=== PATIENT | male | born 1990 | race Caucasian/White ===

== ENCOUNTER 2017-04-25 | Emergency (ER) | payer OTHER ==
--- NOTE | 2017-04-25 21:39 | ER ---
Nurse's Notes [facility] Name: Kris Taylor Age: 27 yrs Sex: Male : 1990 Arrival Date: 04/25/2017 Time: 20:09 Bed 17 Private MD: Diagnosis: Anxiety disorder, unspecified Presentation: 04/25 20:24 Presenting complaint: Patient states: I have a history of asthma and I have been having tl1 shortness of breath for about 4 days. Transition of care: patient was not received from another setting of care. Onset of symptoms was April 21, 2017. Care prior to arrival: None. 20:24 Method Of Arrival: Ambulatory tl1 20:24 Acuity: ELSA 4 tl1 Historical: - Allergies: 20:25 PENICILLINS; tl1 - Home Meds: 20:25 Symbicort inhalation 2 puffs 2 times per day [Active]; tl1 - PMHx: 20:25 Asthma; Anxiety; tl1 - PSHx: 20:25 None; tl1 - Immunization history:: Adult Immunizations up to date. - Social history:: Smoking status: Patient/guardian denies using tobacco, never smoked, Patient/guardian denies using alcohol, street drugs. Screenin:54 Abuse screen: Denies threats or abuse. Denies injuries from another. Nutritional bp screening: No deficits noted. Tuberculosis screening: No symptoms or risk factors identified. Fall Risk None identified. Assessment: 21:00 General: Appears in no apparent distress. comfortable, Behavior is cooperative, bp appropriate for age, anxious. Pain: Denies pain. Neuro: No deficits noted. Cardiovascular: No deficits noted. Respiratory: Airway is patent Respiratory effort is even, unlabored, Respiratory pattern is regular, symmetrical, Breath sounds are clear bilaterally. GI: No deficits noted. : No deficits noted. EENT: No deficits noted. Musculoskeletal: Circulation, motion, and sensation intact. Range of motion: intact in all extremities. 21:53 Reassessment: PT D/C HOME, DX WITH ANXIETY. bp Vital Signs: 20:25 BP 119 / 103; Pulse 92; Resp 22; Temp 98.7; Pulse Ox 100% on R/A; Weight 58.97 kg; tl1 Height 5 ft. 10 in. (177.80 cm); Pain 7/10; 21:30 BP 121 / 89; Pulse 89; Resp 20; Pulse Ox 100% on R/A; bp 20:25 Body Mass Index 18.65 (58.97 kg, 177.80 cm) tl1 ED Course: 20:09 Patient arrived in ED. es 20:25 Triage completed. tl1 20:26 Arm band placed on right wrist. tl1 20:31 Willis Weaver PA is PHCP. jr8 20:31 Geovany Vasquez MD is Attending Physician. jr8 20:34 Coleman Mehta, RN is Primary Nurse. bp 21:00 Patient has correct armband on for positive identification. Bed in low position. Call bp light in reach. Side rails up X2. Adult w/ patient. 21:00 No provider procedures requiring assistance completed. Patient did not have IV access bp during this emergency room visit. Administered Medications: No medications were administered Outcome: 21:38 Discharge ordered by . jr8 21:55 Discharged to home ambulatory, with family. bp 21:55 Condition: stable 21:55 Discharge instructions given to patient, Instructed on discharge instructions, follow up and referral plans. medication usage, Demonstrated understanding of instructions, follow-up care, medications, Prescriptions given X 1. 21:55 Patient left the ED. bp Signatures: Miranda Leonard Willis Weaver PA PA jr8 Felicia Mariscal, RN RN tl1 Coleman Mehta, RN RN bp
--- NOTE | 2017-04-25 21:39 | EDPHYS ---
Physician Documentation [facility] Name: Kris Taylor Age: 27 yrs Sex: Male : 1990 Arrival Date: 04/25/2017 Time: 20:09 Bed 17 Private MD: ED Physician Geovany Vasquez HPI: 04/26 01:26 This 27 yrs old Male presents to ER via Ambulatory with complaints of jr8 shortness of breath. 01:26 The patient has shortness of breath at rest. Onset: The symptoms/episode began/occurred jr8 gradually, 2 day(s) ago. Duration: The symptoms are intermittent. The patient's shortness of breath is aggravated by rest, is alleviated by exertion . Associated signs and symptoms: The patient has no apparent associated signs or symptoms. Severity of symptoms: At their worst the symptoms were mild in the emergency department the symptoms are unchanged. The patient has experienced similar episodes in the past, chronically. The patient has not recently seen a physician. Patient stated that he has both asthma and anxiety. Stated that he has periods of shortness of breath feeling with gagging. Stated that he uses rescue inhaler but normally does not help. Has seen other physicians in past and was told that it was more his anxiety. Started to have problem again over past couple days . Historical: - Allergies: 04/25 20:25 PENICILLINS; tl1 - Home Meds: 20:25 Symbicort inhalation 2 puffs 2 times per day [Active]; tl1 - PMHx: 20:25 Asthma; Anxiety; tl1 - PSHx: 20:25 None; tl1 - Immunization history:: Adult Immunizations up to date. - Social history:: Smoking status: Patient/guardian denies using tobacco, never smoked, Patient/guardian denies using alcohol, street drugs. ROS: 04/26 01:26 Eyes: Negative for injury, pain, redness, and discharge, ENT: Negative for injury, jr8 pain, and discharge, Neck: Negative for injury, pain, and swelling, Cardiovascular: Negative for chest pain, palpitations, and edema, Abdomen/GI: Negative for abdominal pain, nausea, vomiting, diarrhea, and constipation, Back: Negative for injury and pain, MS/Extremity: Negative for injury and deformity, Skin: Negative for injury, rash, and discoloration, Neuro: Negative for headache, weakness, numbness, tingling, and seizure. Respiratory: Positive for shortness of breath, Negative for cough, dyspnea on exertion, orthopnea, pleurisy, sputum production, wheezing. Psych: Positive for anxiety. Exam: 01:26 Constitutional: This is a well developed, well nourished patient who is awake, alert, jr8 and in no acute distress. Head/Face: Normocephalic, atraumatic. Eyes: Pupils equal round and reactive to light, extra-ocular motions intact. Lids and lashes normal. Conjunctiva and sclera are non-icteric and not injected. Cornea within normal limits. Periorbital areas with no swelling, redness, or edema. ENT: Nares patent. No nasal discharge, no septal abnormalities noted. Tympanic membranes are normal and external auditory canals are clear. Oropharynx with no redness, swelling, or masses, exudates, or evidence of obstruction, uvula midline. Mucous membranes moist. Neck: Trachea midline, no thyromegaly or masses palpated, and no cervical lymphadenopathy. Supple, full range of motion without nuchal rigidity, or vertebral point tenderness. No Meningismus. Cardiovascular: Regular rate and rhythm with a normal S1 and S2. No gallops, murmurs, or rubs. Normal PMI, no JVD. No pulse deficits. Respiratory: Lungs have equal breath sounds bilaterally, clear to auscultation and percussion. No rales, rhonchi or wheezes noted. No increased work of breathing, no retractions or nasal flaring. Abdomen/GI: Soft, non-tender, with normal bowel sounds. No distension or tympany. No guarding or rebound. No evidence of tenderness throughout. Back: No spinal tenderness. No costovertebral tenderness. Full range of motion. Skin: Warm, dry with normal turgor. Normal color with no rashes, no lesions, and no evidence of cellulitis. MS/ Extremity: Pulses equal, no cyanosis. Neurovascular intact. Full, normal range of motion. Neuro: Awake and alert, GCS 15, oriented to person, place, time, and situation. Cranial nerves II-XII grossly intact. Motor strength 5/5 in all extremities. Sensory grossly intact. Cerebellar exam normal. Normal gait. Vital Signs: 04/25 20:25 BP 119 / 103; Pulse 92; Resp 22; Temp 98.7; Pulse Ox 100% on R/A; Weight 58.97 kg; tl1 Height 5 ft. 10 in. (177.80 cm); Pain 7/10; 21:30 BP 121 / 89; Pulse 89; Resp 20; Pulse Ox 100% on R/A; bp 20:25 Body Mass Index 18.65 (58.97 kg, 177.80 cm) tl1 MDM: 20:32 Patient medically screened. jr8 21:38 Data reviewed: vital signs, nurses notes, and as a result, I will discharge patient. jr8 Data interpreted: Pulse oximetry: on room air is 100 %. Interpretation: normal. Counseling: I had a detailed discussion with the patient and/or guardian regarding: the historical points, exam findings, and any diagnostic results supporting the discharge/admit diagnosis, the need for outpatient follow up, a family practitioner, to return to the emergency department if symptoms worsen or persist or if there are any questions or concerns that arise at home. 04/26 01:26 ED course: Discussed with patient that he has not wheezing or any other adventitious jr8 breath sounds currently. That what he is describing sounds more like anxiety. Will start him on something to see if that improves the feelings that he has been having. If were to come back to ED. Otherwise to follow up with PCP . Administered Medications: No medications were administered Disposition: 07:06 Co-signature as Attending Physician, Geovany Vasquez MD I agree with the assessment and good plan of care. Disposition: 04/25/17 21:38 Discharged to Home. Impression: Anxiety disorder, unspecified. - Condition is Stable. - Discharge Instructions: Panic Attacks, Generalized Anxiety Disorder. - Prescriptions for Hydroxyzine HCl 50 mg Oral Tablet - take 1 tablet by ORAL route every 8 hours As needed; 20 tablet. - Medication Reconciliation Form, Thank You Letter, Antibiotic Education, Prescription Opioid Use form. - Follow up: Private Physician; When: 2 - 3 days; Reason: Recheck today's complaints, Continuance of care, Re-evaluation by your physician. - Problem is new. - Symptoms have improved. Signatures: Geovany Vasquez MD MD cha Roszak, Josh, PA PA jr8 Felicia Mariscal RN RN tl1 Coleman Mehta RN RN bp
== END 2017-04-25 21:55 | disposition home or self-care (01) ==
CPT/HCPCS: 99282

== ENCOUNTER 2017-08-14 10:37 | Emergency (ER) | payer OTHER ==
--- NOTE | 2017-08-14 12:38 | RAD REPORT ---
EXAM DESCRIPTION: Tomas Aldridge And Jared (2 Views)08/14/2017 12:08 pm CLINICAL HISTORY: Chest pain COMPARISON: October 2016 FINDINGS: The lungs are hyperaerated. The lungs appear clear of acute infiltrate. The heart is norm al size IMPRESSION: No acute abnormalities displayed
--- NOTE | 2017-08-14 13:17 | ER ---
Nurse's Notes [facility] Name: Kris Taylor Age: 27 yrs Sex: Male : 1990 Arrival Date: 08/14/2017 Time: 10:39 Bed 28 Private MD: Duc Branham E Diagnosis: Chest pain, unspecified Presentation: 08/14 10:41 Presenting complaint: Patient states: left sided chest pain, worse with breathing. c/o sv dry cough and sweating more. Symptoms started about 2-3 days ago. Transition of care: patient was not received from another setting of care. Onset of symptoms was August 11, 2017. Care prior to arrival: None. 10:41 Method Of Arrival: Ambulatory sv 10:41 Acuity: ELSA 3 sv 13:29 Risk Assessment: Do you want to hurt yourself or someone else? Patient reports no mb3 desire to harm self or others. Initial Sepsis Screen: Does the patient meet any 2 criteria? No. Patient's initial sepsis screen is negative. Does the patient have a suspected source of infection? No. Patient's initial sepsis screen is negative. Historical: - Allergies: 10:50 PENICILLINS; sv - Home Meds: 10:50 Albuterol Inhl [Active]; sv - PMHx: 10:50 Anxiety; Asthma; sv - PSHx: 10:50 None; sv - Immunization history:: Adult Immunizations up to date. - Social history:: Smoking status: Patient/guardian denies using tobacco, Patient/guardian denies using alcohol, street drugs, IV drugs. - Ebola Screening: : No symptoms or risks identified at this time. Screenin:28 Abuse screen: Denies threats or abuse. Nutritional screening: No deficits noted. mb3 Tuberculosis screening: No symptoms or risk factors identified. Fall Risk None identified. Assessment: 13:25 General: Appears in no apparent distress. comfortable, Behavior is calm, cooperative, mb3 appropriate for age. Pain: Complains of pain in anterior aspect of left upper chest, left lateral anterior chest and left breast Pain does not radiate. Pain began 2-3 days ago. Aggravated by increased activity, repositioning. Neuro: No deficits noted. Level of Consciousness is awake, alert, obeys commands. Cardiovascular: Reports chest pain, Heart tones present Capillary refill < 3 seconds Patient's skin is warm and dry. Pulses are all present. Rhythm is regular. Respiratory: No deficits noted. GI: No deficits noted. No signs and/or symptoms were reported involving the gastrointestinal system. : No deficits noted. No signs and/or symptoms were reported regarding the genitourinary system. Vital Signs: 10:41 BP 116 / 78; Pulse 82; Resp 18; Temp 97.4; Pulse Ox 100% ; Weight 58.97 kg; Height 5 sv ft. 10 in. (177.80 cm); Pain 6/10; 13:27 BP 120 / 85; Pulse 88; Resp 16; Pulse Ox 99% on R/A; mb3 10:41 Body Mass Index 18.65 (58.97 kg, 177.80 cm) sv ED Course: 10:39 Patient arrived in ED. as 10:40 Duc Branham MD is Private Physician. as 10:41 Arm band placed on right wrist. Patient placed in an exam room, on a stretcher. sv 10:47 Bryon Granados RN is Primary Nurse. mb3 10:49 Triage completed. sv 10:56 Gibran Byrne MD is Attending Physician. gs 11:01 EKG done, by electroencephalograph technician. reviewed by Gibran Byrne MD. 3 12:07 XRAY Chest Pa And Lat (2 Views) In Process Unspecified. EDMS 13:28 No provider procedures requiring assistance completed. Patient did not have IV access mb3 during this emergency room visit. Patient maintains SpO2 saturation greater than 95% on room air. 13:29 Patient has correct armband on for positive identification. Pulse ox on. NIBP on. mb3 Administered Medications: No medications were administered Outcome: 13:16 Discharge ordered by . 13:28 Discharged to home ambulatory. mb3 13:28 Condition: stable 13:28 Discharge instructions given to patient, Instructed on discharge instructions, follow up and referral plans. Demonstrated understanding of instructions, follow-up care. 13:29 Patient left the ED. mb3 Signatures: Dispatcher [employer] EDMS Tara Mcleod, JAVIER RN Dorinda Shields Gregory, MD MD Bryon Granados RN RN mb3 Penny Moore 3
--- NOTE | 2017-08-14 13:17 | EDPHYS ---
Physician Documentation [facility] Name: Kris Taylor Age: 27 yrs Sex: Male : 1990 Arrival Date: 08/14/2017 Time: 10:39 Bed 28 Private MD: Duc Branham E ED Physician Gibran Byrne HPI: 08/14 13:09 This 27 yrs old Male presents to ER via Ambulatory with complaints of Chest gs Pain - x3 Days. 13:09 The patient or guardian reports chest pain that is located primarily in the anterior gs chest wall. The pain does not radiate. Associated signs and symptoms: Pertinent negatives: shortness of breath. The chest pain is described as sharp. Duration: The patient or guardian reports multiple episodes, that are intermittent, that wax and wane, with no pattern. Modifying factors: The symptoms are alleviated by nothing. the symptoms are aggravated by deep breath, movement, palpation of area, twisting torso. Severity of pain: At its worst the pain was moderate in the emergency department the pain has improved moderately. The patient has experienced similar episodes in the past, a few times. Historical: - Allergies: 10:50 PENICILLINS; sv - Home Meds: 10:50 Albuterol Inhl [Active]; sv - PMHx: 10:50 Anxiety; Asthma; sv - PSHx: 10:50 None; sv - Immunization history:: Adult Immunizations up to date. - Social history:: Smoking status: Patient/guardian denies using tobacco, Patient/guardian denies using alcohol, street drugs, IV drugs. - Ebola Screening: : No symptoms or risks identified at this time. ROS: 13:09 All other systems are negative. gs Exam: 13:09 Head/Face: Normocephalic, atraumatic. Eyes: Pupils equal round and reactive to light, gs extra-ocular motions intact. Lids and lashes normal. Conjunctiva and sclera are non-icteric and not injected. Cornea within normal limits. Periorbital areas with no swelling, redness, or edema. ENT: Nares patent. No nasal discharge, no septal abnormalities noted. Tympanic membranes are normal and external auditory canals are clear. Oropharynx with no redness, swelling, or masses, exudates, or evidence of obstruction, uvula midline. Mucous membranes moist. Neck: Trachea midline, no thyromegaly or masses palpated, and no cervical lymphadenopathy. Supple, full range of motion without nuchal rigidity, or vertebral point tenderness. No Meningismus. Chest/axilla: Normal chest wall appearance and motion. Nontender with no deformity. No lesions are appreciated. Cardiovascular: Regular rate and rhythm with a normal S1 and S2. No gallops, murmurs, or rubs. Normal PMI, no JVD. No pulse deficits. Respiratory: Lungs have equal breath sounds bilaterally, clear to auscultation and percussion. No rales, rhonchi or wheezes noted. No increased work of breathing, no retractions or nasal flaring. Abdomen/GI: Soft, non-tender, with normal bowel sounds. No distension or tympany. No guarding or rebound. No evidence of tenderness throughout. Back: No spinal tenderness. No costovertebral tenderness. Full range of motion. Skin: Warm, dry with normal turgor. Normal color with no rashes, no lesions, and no evidence of cellulitis. MS/ Extremity: Pulses equal, no cyanosis. Neurovascular intact. Full, normal range of motion. Neuro: Awake and alert, GCS 15, oriented to person, place, time, and situation. Cranial nerves II-XII grossly intact. Motor strength 5/5 in all extremities. Sensory grossly intact. Cerebellar exam normal. Normal gait. 13:09 Constitutional: The patient appears alert, awake. 13:09 ECG was reviewed by the Attending Physician. Vital Signs: 10:41 BP 116 / 78; Pulse 82; Resp 18; Temp 97.4; Pulse Ox 100% ; Weight 58.97 kg; Height 5 sv ft. 10 in. (177.80 cm); Pain 6/10; 13:27 BP 120 / 85; Pulse 88; Resp 16; Pulse Ox 99% on R/A; mb3 10:41 Body Mass Index 18.65 (58.97 kg, 177.80 cm) sv MDM: 10:56 Patient medically screened. 13:09 Differential diagnosis: chest wall pain, pleurisy, pneumonia, pneumothorax. Data reviewed: vital signs, nurses notes. 08/14 10:57 Order name: XRAY Chest Pa And Lat (2 Views); Complete Time: 13:09 gs 08/14 10:48 Order name: EKG; Complete Time: 10:49 sv 08/14 10:48 Order name: EKG - Nurse/Tech; Complete Time: 10:56 sv EC:09 Rate is 77 beats/min. Rhythm is regular. RI interval is normal. QRS interval is normal. gs T waves are Normal. No ST changes noted. Clinical impression: Normal ECG. Interpreted by me. Administered Medications: No medications were administered Disposition: 08/14/17 13:16 Discharged to Home. Impression: Chest pain, unspecified. - Condition is Stable. - Discharge Instructions: Nonspecific Chest Pain. - Medication Reconciliation Form, Thank You Letter, Antibiotic Education, Prescription Opioid Use form. - Follow up: Private Physician; When: 2 - 3 days; Reason: Re-evaluation by your physician. Signatures: Dispatcher [employer] EDTara Melo RN RN sv Gibran Byrne MD MD Bryon Granados RN RN mb3 Corrections: (The following items were deleted from the chart) 10:48 10:48 Rhythm Strip ordered. sv sv 13:13 13:09 Modifying factors: The symptoms are alleviated by nothing. the symptoms are gs aggravated by nothing. gs 13:29 13:16 08/14/2017 13:16 Discharged to Home. Impression: Chest pain, unspecified. mb3 Condition is Stable. Forms are Medication Reconciliation Form, Thank You Letter, Antibiotic Education, Prescription Opioid Use. Follow up: Private Physician; When: 2 - 3 days; Reason: Re-evaluation by your physician. gs
--- NOTE | 2017-08-14 16:22 | EKG ---
Test Date: 2017-08-14 Test Time: 10:55:15 Bias Machine Operator Helper: MARCOS MEASUREMENT RESULTS: Intervals: Rate: 77 WY: 126 QRSD: 84 QT: 364 QTc: 411 [place]: P: 71 WY: 126 QRS: 92 T: 74 INTERPRETIVE STATEMENTS: Normal sinus rhythm Cannot rule out septal infarct or normal variant Abnormal ECG Compared to ECG 09/09/2016 01:38:12 No significant changes Electronically Signed On 08-14-17 16:22:12 CDT by Mega Hogue
== END 2017-08-14 13:29 | disposition home or self-care (01) ==
LOC: ER 10:37
DX: R07.9 Chest pain, unspecified (principal); J45.909 Unspecified asthma, uncomplicated; Z88.0 Allergy status to penicillin
CPT/HCPCS: 71046; 93005; 99284

== ENCOUNTER 2018-04-10 08:29 | Emergency (ER) | payer OTHER ==
[2018-04-10] MEDS ORDERED: NA CHLORIDE 0.9% 1,000 ML ONE (09:02)
[2018-04-10] MEDS ORDERED: ONDANSETRON 4 MG/2 ML VIAL ONE (09:02)
[2018-04-10 09:26] LABS: Absolute Lymphocytes (CBC) 0.6 K/uL (0.7-4.9); Absolute Monocytes 0.4 K/uL (0.1-1.3); Absolute Neutrophil 7.6 K/uL (1.8-8.0); Basophils % 0.2 % (0-1.3); Eosinophils % 0.3 % (0-4.4); Hematocrit 42.6 % (39.6-49.0); Lymphocytes % 7.1 % (15.3-44.8); MPV 8.4 fL (7.6-11.3); Monocytes % 4.1 % (3.3-12.3); RBC Red Blood Cell Count 4.98 M/uL (4.33-5.43)
[2018-04-10 09:39] LABS: Albumin 4.4 g/dL (3.4-5.0); Bilirubin Direct 0.2 mg/dL (0-0.2); Bilirubin Total 0.8 mg/dL (0.2-1.0); Potassium 3.6 mmol/L (3.5-5.1); Protein, Total 7.8 g/dL (6.4-8.2)
[2018-04-10 10:00] LABS: Blood Morphology Comment NOT SEEN (NOT SEEN); Platelet Estimate ADEQ; Urine White Blood Cell Casts OK
--- NOTE | 2018-04-10 10:39 | ER ---
Nurse's Notes [facility] Name: Kris Taylor Age: 28 yrs Sex: Male : 1990 Arrival Date: 04/10/2018 Time: 08:32 Bed 14 Private MD: Diagnosis: Upper abdominal pain, unspecified;Nausea and vomiting Presentation: 04/10 08:36 Presenting complaint: Patient states: congestion started yesterday, felling feverish, ch today having vomting and diarrhea and abdominal pain. Transition of care: patient was not received from another setting of care. Onset of symptoms was April 09, 2018 at 12:00. Risk Assessment: Do you want to hurt yourself or someone else? Patient reports no desire to harm self or others. Initial Sepsis Screen: Does the patient meet any 2 criteria? No. Patient's initial sepsis screen is negative. Does the patient have a suspected source of infection? No. Patient's initial sepsis screen is negative. Care prior to arrival: None. 08:36 Method Of Arrival: Ambulatory 08:36 Acuity: ELSA 3 ch Historical: - Allergies: 08:37 PENICILLINS; - Home Meds: 08:37 None [Active]; - PMHx: 08:37 Anxiety; Asthma; - PSHx: 08:37 None; - Immunization history:: Adult Immunizations up to date, Flu vaccine is not up to date. - Social history:: Smoking status: Patient/guardian denies using tobacco. - Ebola Screening: : Patient negative for fever greater than or equal to 101.5 degrees Fahrenheit, and additional compatible Ebola Virus Disease symptoms Patient denies exposure to infectious person Patient denies travel to an Ebola-affected area in the 21 days before illness onset No symptoms or risks identified at this time. Screenin:45 Abuse screen: Denies threats or abuse. Nutritional screening: No deficits noted. rb1 Tuberculosis screening: No symptoms or risk factors identified. Fall Risk None identified. Assessment: 08:45 General: Appears in no apparent distress. comfortable, Behavior is calm, cooperative, rb1 Reports fever for feeling ill for 1-2 days. Pain: Complains of pain in umbilical area and right lower quadrant Pain currently is 8 out of 10 on a pain scale. Pain began 1 day ago. Neuro: Level of Consciousness is awake, alert, obeys commands, Oriented to person, place, time, situation. Neuro: Reports headache frontal area. Cardiovascular: Capillary refill < 3 seconds is brisk in bilateral fingers. Respiratory: Airway is patent Respiratory effort is even, unlabored, Respiratory pattern is regular, symmetrical. GI: Bowel sounds present X 4 quads. Abd is soft Abdomen is tender to palpation in umbilical area and right lower quadrant Reports diarrhea, nausea, vomiting, since this morning. : No signs and/or symptoms were reported regarding the genitourinary system. EENT: Reports nasal congestion since yesterday. Derm: Skin is pink, warm \T\ dry. Musculoskeletal: Range of motion: intact in all extremities. 09:45 Reassessment: Patient appears in no apparent distress at this time. Patient and/or rb1 family updated on plan of care and expected duration. Pain level reassessed. Patient is alert, oriented x 3, equal unlabored respirations, skin warm/dry/pink. 10:00 Reassessment: Pt. tolerated PO challenge well; no vomiting noted at this time. rb1 10:33 Reassessment: Patient appears in no apparent distress at this time. No changes from [facility] previously documented assessment. Vital Signs: 08:37 BP 91 / 68; Pulse 120; Resp 19; Temp 99.9(O); Pulse Ox 99% on R/A; Weight 58.97 kg; ch Height 5 ft. 11 in. (180.34 cm); Pain 8/10; 09:35 BP 107 / 33; Pulse 101; Resp 17; Pulse Ox 100% on R/A; rb1 10:33 BP 117 / 71; Pulse 92; Resp 16; Pulse Ox 100% on R/A; rb1 10:52 BP 112 / 72; Pulse 106; Resp 16; Pulse Ox 100% on R/A; rb1 08:37 Body Mass Index 18.13 (58.97 kg, 180.34 cm) ED Course: 08:32 Patient arrived in ED. as 08:33 Courtney Rivera FNP-C [facility]. kb 08:33 Jonny Pierre MD is Attending Physician. kb 08:36 Triage completed. 08:37 Arm band placed on left wrist. Patient placed in an exam room, on a stretcher. 08:45 Patient has correct armband on for positive identification. Placed in gown. Bed in low rb1 position. Call light in reach. Side rails up X 1. Pulse ox on. NIBP on. 08:47 Olya Briscoe, RN is Primary Nurse. rb1 08:55 Inserted saline lock: 22 gauge in right antecubital area, using aseptic technique. rb1 Blood collected. 09:07 Flu Sent. rb1 10:52 No provider procedures requiring assistance completed. IV discontinued, intact, rb1 bleeding controlled, No redness/swelling at site. Pressure dressing applied. Administered Medications: 08:55 Drug: NS 0.9% 1000 ml Route: IV; Rate: 1000 ml; Site: right antecubital; rb1 10:07 Follow up: IV Status: Completed infusion rb1 08:55 Drug: Zofran 4 mg Route: IVP; Site: right antecubital; rb1 09:10 Follow up: Response: No adverse reaction; Nausea is decreased rb1 10:32 Drug: Tylenol 1000 mg Route: PO; rb1 10:51 Follow up: Response: No adverse reaction; Pain is decreased rb1 Outcome: 10:38 Discharge ordered by . kentrell 10:52 Discharged to home ambulatory. rb1 10:52 Condition: stable 10:52 Discharge instructions given to patient, Instructed on discharge instructions, follow up and referral plans. medication usage, Demonstrated understanding of instructions, follow-up care, medications, Prescriptions given X 2. 10:53 Patient left the ED. rb1 Signatures: Courtney Rivera, JOHN-Sofia LOPEZ-Tabitha Mcelroy, RN RN Dorinda Jean as Olya Briscoe, RN RN rb1
--- NOTE | 2018-04-10 10:39 | EDPHYS ---
Physician Documentation [facility] Name: Kris Taylor Age: 28 yrs Sex: Male : 1990 Arrival Date: 04/10/2018 Time: 08:32 Bed 14 Private MD: ED Physician Jonny Pierre HPI: 04/10 09:53 This 28 yrs old Male presents to ER via Ambulatory with complaints of kb Abdominal Pain, Vomiting, Headache. 09:53 The patient presents with abdominal pain in the upper abdomen. Onset: The kb symptoms/episode began/occurred last night. The symptoms do not radiate. Associated signs and symptoms: Pertinent positives: nausea and vomiting, fever, congestion. The symptoms are described as constant. Modifying factors: The symptoms are alleviated by nothing, the symptoms are aggravated by nothing. Severity of pain: At its worst the pain was moderate in the emergency department the pain is unchanged. The patient has not experienced similar symptoms in the past. The patient has not recently seen a physician. Pt reports upper abd pain, subjective fever (forehead felt warm), nasal congestion, nausea and vomiting since last night.. Historical: - Allergies: 08:37 PENICILLINS; ch - Home Meds: 08:37 None [Active]; ch - PMHx: 08:37 Anxiety; Asthma; ch - PSHx: 08:37 None; ch - Immunization history:: Adult Immunizations up to date, Flu vaccine is not up to date. - Social history:: Smoking status: Patient/guardian denies using tobacco. - Ebola Screening: : Patient negative for fever greater than or equal to 101.5 degrees Fahrenheit, and additional compatible Ebola Virus Disease symptoms Patient denies exposure to infectious person Patient denies travel to an Ebola-affected area in the 21 days before illness onset No symptoms or risks identified at this time. ROS: 09:52 Constitutional: Negative for fever, chills, and weight loss, ENT: Negative for injury, kb pain, and discharge, Neck: Negative for injury, pain, and swelling, Cardiovascular: Negative for chest pain, palpitations, and edema, Respiratory: Negative for shortness of breath, cough, wheezing, and pleuritic chest pain, Back: Negative for injury and pain, : Negative for injury, bleeding, discharge, and swelling, MS/Extremity: Negative for injury and deformity, Skin: Negative for injury, rash, and discoloration, Neuro: Negative for headache, weakness, numbness, tingling, and seizure. 09:52 Abdomen/GI: Positive for abdominal pain, nausea and vomiting, Negative for diarrhea, constipation, abdominal cramps, abdominal distension, anorexia. Exam: 09:52 Constitutional: This is a well developed, well nourished patient who is awake, alert, kb and in no acute distress. Head/Face: Normocephalic, atraumatic. Neck: Trachea midline, no thyromegaly or masses palpated, and no cervical lymphadenopathy. Supple, full range of motion without nuchal rigidity, or vertebral point tenderness. No Meningismus. Chest/axilla: Normal chest wall appearance and motion. Nontender with no deformity. No lesions are appreciated. Cardiovascular: Regular rate and rhythm with a normal S1 and S2. No gallops, murmurs, or rubs. Normal PMI, no JVD. No pulse deficits. Respiratory: Lungs have equal breath sounds bilaterally, clear to auscultation and percussion. No rales, rhonchi or wheezes noted. No increased work of breathing, no retractions or nasal flaring. Back: No spinal tenderness. No costovertebral tenderness. Full range of motion. Skin: Warm, dry with normal turgor. Normal color with no rashes, no lesions, and no evidence of cellulitis. MS/ Extremity: Pulses equal, no cyanosis. Neurovascular intact. Full, normal range of motion. Neuro: Awake and alert, GCS 15, oriented to person, place, time, and situation. Cranial nerves II-XII grossly intact. Motor strength 5/5 in all extremities. Sensory grossly intact. Cerebellar exam normal. Normal gait. 09:52 Abdomen/GI: Inspection: abdomen appears normal, Bowel sounds: normal, in all quadrants, Palpation: soft, in all quadrants, mild abdominal tenderness, in the right upper quadrant, left upper quadrant and right lower quadrant. Vital Signs: 08:37 BP 91 / 68; Pulse 120; Resp 19; Temp 99.9(O); Pulse Ox 99% on R/A; Weight 58.97 kg; ch Height 5 ft. 11 in. (180.34 cm); Pain 8/10; 09:35 BP 107 / 33; Pulse 101; Resp 17; Pulse Ox 100% on R/A; rb1 10:33 BP 117 / 71; Pulse 92; Resp 16; Pulse Ox 100% on R/A; rb1 10:52 BP 112 / 72; Pulse 106; Resp 16; Pulse Ox 100% on R/A; rb1 08:37 Body Mass Index 18.13 (58.97 kg, 180.34 cm) ch MDM: 08:38 Patient medically screened. kb 09:51 Data reviewed: vital signs, nurses notes. Data interpreted: Pulse oximetry: on room air kb is 99 %. Interpretation: normal. Counseling: I had a detailed discussion with the patient and/or guardian regarding: the historical points, exam findings, and any diagnostic results supporting the discharge/admit diagnosis, lab results, the need for outpatient follow up, a family practitioner, to return to the emergency department if symptoms worsen or persist or if there are any questions or concerns that arise at home. 04/10 08:41 Order name: Basic Metabolic Panel; Complete Time: 09:41 kb 04/10 08:41 Order name: CBC with Diff; Complete Time: 10:02 kb 04/10 08:41 Order name: Hepatic Function; Complete Time: 09:41 kb 04/10 08:41 Order name: Lipase; Complete Time: 09:41 kb 04/10 08:41 Order name: Flu; Complete Time: 09:43 kb 04/10 09:31 Order name: CBC Smear Scan; Complete Time: 10:02 EDMS 04/10 08:41 Order name: IV Saline Lock; Complete Time: 09:07 kb 04/10 08:41 Order name: Labs collected and sent; Complete Time: 09:07 kb 04/10 09:52 Order name: PO challenge; Complete Time: 09:58 kb Administered Medications: 08:55 Drug: NS 0.9% 1000 ml Route: IV; Rate: 1000 ml; Site: right antecubital; rb1 10:07 Follow up: IV Status: Completed infusion rb1 08:55 Drug: Zofran 4 mg Route: IVP; Site: right antecubital; rb1 09:10 Follow up: Response: No adverse reaction; Nausea is decreased rb1 10:32 Drug: Tylenol 1000 mg Route: PO; rb1 10:51 Follow up: Response: No adverse reaction; Pain is decreased rb1 Disposition: 18:01 Co-signature as Attending Physician, Jonny Pierre MD. rn Disposition: 04/10/18 10:38 Discharged to Home. Impression: Upper abdominal pain, unspecified, Nausea and vomiting. - Condition is Stable. - Discharge Instructions: Nausea and Vomiting, Adult, [id number], Abdominal Pain, Adult, [id number]. - Prescriptions for Bentyl 20 mg Oral Tablet - take 1 tablet by ORAL route every 6 hours As needed; 20 tablet. Zofran 4 mg Oral Tablet - take 1 tablet by ORAL route every 6 hours As needed; 20 tablet. - Medication Reconciliation Form, Thank You Letter, Antibiotic Education, Prescription Opioid Use form. - Follow up: Emergency Department; When: As needed; Reason: Worsening of condition. Follow up: Private Physician; When: 2 - 3 days; Reason: Recheck today's complaints, Continuance of care, Re-evaluation by your physician. Signatures: Dispatcher [employer] EDMS Courtney Rivera, PROJECT OFFICER-C PROJECT OFFICER-Tabitha Mcelroy, RN RN Jonny Tovar MD MD rn Olya Birscoe RN RN rb1 Corrections: (The following items were deleted from the chart) 10:53 10:38 04/10/2018 10:38 Discharged to Home. Impression: Upper abdominal pain, rb1 unspecified; Nausea and vomiting. Condition is Stable. Forms are Medication Reconciliation Form, Thank You Letter, Antibiotic Education, Prescription Opioid Use. Follow up: Emergency Department; When: As needed; Reason: Worsening of condition. Follow up: Private Physician; When: 2 - 3 days; Reason: Recheck today's complaints, Continuance of care, Re-evaluation by your physician. kb
[2018-04-10] MEDS ORDERED: ACETAMINOPHEN 500 MG TAB ONE (10:41)
== END 2018-04-10 10:53 | disposition home or self-care (01) ==
LOC: ER 08:29
DX: R10.10 Upper abdominal pain, unspecified (principal); R11.2 Nausea with vomiting, unspecified; R51 Headache; F41.9 Anxiety disorder, unspecified; J45.909 Unspecified asthma, uncomplicated; Z88.0 Allergy status to penicillin
CPT/HCPCS: 36415; 80048; 80076; 83690; 85025; 87804; 96361; 96374; 99284; J2405; J7030

== ENCOUNTER 2018-04-15 03:18 | Emergency (ER) | payer OTHER ==
[2018-04-15 03:53] LABS: Urine Blood NEGATIVE (NEG); Urine Glucose NEGATIVE (NEG); Urine Protein NEGATIVE (NEG); Urine Specific Gravity 1.025 (1.005-1.030); Urine pH 5.5 (5.0-7.0)
[2018-04-15 04:10] LABS: Absolute Lymphocytes (CBC) 3.3 K/uL (0.7-4.9); Absolute Monocytes 0.5 K/uL (0.1-1.3); Absolute Neutrophil 2.4 K/uL (1.8-8.0); Basophils % 0.8 % (0-1.3); Hematocrit 38.2 % (39.6-49.0); Lymphocytes % 51.2 % (15.3-44.8); MPV 7.9 fL (7.6-11.3); Monocytes % 7.3 % (3.3-12.3); RBC Red Blood Cell Count 4.47 M/uL (4.33-5.43)
[2018-04-15 04:23] LABS: Urine Bacteria <20 /HPF (NONE SEEN); Urine Culture Reflex Order NOT NEEDED; Urine Mucus LIGHT /HPF (NONE SEEN); Urine RBC NONE SEEN /HPF (NONE SEEN)
[2018-04-15 04:25] LABS: ALT/SGPT 70 U/L (12-78); AST/SGOT 46 U/L (15-37); Alkaline Phosphatase 61 U/L (45-117); BUN Blood Urea Nitrogen 12 mg/dL (7-18); Bicarbonate 27 mmol/L (21-32); Bilirubin Direct < 0.1 mg/dL (0-0.2); Bilirubin Total 0.2 mg/dL (0.2-1.0); Glucose Level 91 mg/dL (74-106); Lipase 64 U/L (73-393); Potassium 3.9 mmol/L (3.5-5.1); Protein, Total 7.4 g/dL (6.4-8.2); Sodium Level 141 mmol/L (136-145)
[2018-04-15] MEDS ORDERED: KETOROLAC 30 MG/ML INJ ONE (04:28)
[2018-04-15] MEDS ORDERED: NA CHLORIDE 0.9% 1,000 ML ONE (04:28)
--- NOTE | 2018-04-15 05:35 | ER ---
Nurse's Notes [facility] Name: Kris Taylor Age: 28 yrs Sex: Male : 1990 Arrival Date: 04/15/2018 Time: 03:21 Bed 6 Private MD: Duc Branham E Diagnosis: Unspecified abdominal pain;Splenomegaly, not elsewhere classified Presentation: 04/15 03:29 Presenting complaint: Patient states: he has been having a burning, constant pain, to bb left side of abdomen which is 8/10 at this time denies vomiting, diarrhea or dysuria. Transition of care: patient was not received from another setting of care. Onset of symptoms was March 17, 2018. Risk Assessment: Do you want to hurt yourself or someone else? Patient reports no desire to harm self or others. Initial Sepsis Screen: Does the patient meet any 2 criteria? No. Patient's initial sepsis screen is negative. Does the patient have a suspected source of infection? No. Patient's initial sepsis screen is negative. Care prior to arrival: None. 03:29 Method Of Arrival: Ambulatory bb 03:29 Acuity: ELSA 3 bb Triage Assessment: 03:58 General: Appears in no apparent distress. Behavior is calm, cooperative. ak1 Historical: - Allergies: 03:31 PENICILLINS; bb - Home Meds: 03:31 None [Active]; bb - PMHx: 03:31 Anxiety; Asthma; bb - PSHx: 03:31 None; bb - Immunization history:: Adult Immunizations up to date, Flu vaccine is not up to date. - Social history:: Smoking status: Patient/guardian denies using tobacco, Patient/guardian denies using alcohol, street drugs. - Ebola Screening: : No symptoms or risks identified at this time. Screenin:58 Abuse screen: Denies threats or abuse. Denies injuries from another. Nutritional ak1 screening: No deficits noted. Tuberculosis screening: No symptoms or risk factors identified. Fall Risk None identified. Assessment: 03:58 General: Appears in no apparent distress. Behavior is calm, cooperative. Pain: ak1 Complains of pain in left abd. Neuro: No deficits noted. Cardiovascular: No deficits noted. Respiratory: No deficits noted. GI: No signs and/or symptoms were reported involving the gastrointestinal system. pt was seen in ER earlier in the week with N/V but stated s/s have resolved after that visit. : No signs and/or symptoms were reported regarding the genitourinary system. EENT: No signs and/or symptoms were reported regarding the EENT system. Derm: No signs and/or symptoms reported regarding the dermatologic system. Musculoskeletal: No signs and/or symptoms reported regarding the musculoskeletal system. 04:21 Reassessment: Patient appears in no apparent distress at this time. No changes from ak1 previously documented assessment. Patient and/or family updated on plan of care and expected duration. Pain level reassessed. Patient is alert, oriented x 3, equal unlabored respirations, skin warm/dry/pink. 05:26 Reassessment: Patient appears in no apparent distress at this time. No changes from ak1 previously documented assessment. Patient and/or family updated on plan of care and expected duration. Pain level reassessed. Patient is alert, oriented x 3, equal unlabored respirations, skin warm/dry/pink. Vital Signs: 03:31 BP 131 / 96; Pulse 67; Resp 16 S; Temp 97.9(O); Pulse Ox 100% on R/A; Weight 58.97 kg bb (R); Height 5 ft. 10 in. (177.80 cm) (R); Pain 8/10; 03:58 BP 132 / 82; Pulse 71; Resp 16; Pulse Ox 100% on R/A; ak1 05:02 BP 124 / 94; Pulse 70; Resp 16; Pulse Ox 99% on R/A; ak1 03:31 Body Mass Index 18.65 (58.97 kg, 177.80 cm) ED Course: 03:21 Patient arrived in ED. es 03:22 Duc Branham MD is Private Physician. es 03:30 Triage completed. bb 03:31 Doroteo Verma MD is Attending Physician. tw4 03:31 Arm band placed on Patient placed in an exam room, on a stretcher, on pulse oximetry. bb 03:44 Inserted saline lock: 20 gauge in right antecubital area, using aseptic technique. tl2 Blood collected. 03:57 Steffi Duvall, RN is Primary Nurse. ak1 04:02 Patient has correct armband on for positive identification. Call light in reach. Side ak1 rails up X 1. Pulse ox on. NIBP on. 04:[address] via wheelchair. kw1 04:37 CT Abd/Pelvis - W/Contrast In Process Unspecified. EDMS 05:12 CT completed. Patient tolerated procedure well. Patient moved back from CT. kw1 05:34 Duc Branham MD is Referral Physician. tw4 05:46 No provider procedures requiring assistance completed. IV discontinued, intact, ak1 bleeding controlled, No redness/swelling at site. Pressure dressing applied. Administered Medications: 04:20 Drug: TORadol 30 mg Route: IVP; Site: right antecubital; ak1 04:36 Follow up: Response: No adverse reaction ak1 04:20 Drug: NS 0.9% 1000 ml Route: IV; Rate: 1 bolus; Site: right antecubital; ak1 05:48 Follow up: IV Status: Completed infusion ak1 Outcome: 05:35 Discharge ordered by . tw4 05:47 Discharged to home ambulatory. ak1 05:47 Condition: good 05:47 Discharge instructions given to patient, Instructed on discharge instructions, follow up and referral plans. Demonstrated understanding of instructions, follow-up care. 05:48 Patient left the ED. ak1 Signatures: Dispatcher [employer] EDMiranda Oritz Brenda RN RN Steffi Fischer RN RN [email or web address] Angelique Urrutia RN RN [email or web address] Miriam Rivera kw1 Doroteo Verma MD MD tw4
--- NOTE | 2018-04-15 05:36 | EDPHYS ---
Physician Documentation [facility] Name: Kris Taylor Age: 28 yrs Sex: Male : 1990 Arrival Date: 04/15/2018 Time: 03:21 Bed 6 Private MD: Duc Branham E ED Physician Doroteo Verma HPI: 04/15 04:52 This 28 yrs old Male presents to ER via Ambulatory with complaints of Flank tw4 Pain. 04:52 The patient complains of pain in the left mid back. The pain radiates to the left lower tw4 quadrant. Onset: The symptoms/episode began/occurred today. Modifying factors: The symptoms are alleviated by nothing. the symptoms are aggravated by nothing. Associated signs and symptoms: The patient has no apparent associated signs or symptoms. The patient has not experienced similar symptoms in the past. The patient has been recently seen by a physician: The patient has been recently seen at the [facility] Emergency Department, last week. Historical: - Allergies: 03:31 PENICILLINS; bb - Home Meds: 03:31 None [Active]; bb - PMHx: 03:31 Anxiety; Asthma; bb - PSHx: 03:31 None; bb - Immunization history:: Adult Immunizations up to date, Flu vaccine is not up to date. - Social history:: Smoking status: Patient/guardian denies using tobacco, Patient/guardian denies using alcohol, street drugs. - Ebola Screening: : No symptoms or risks identified at this time. ROS: 04:52 Constitutional: Negative for fever, chills, and weight loss, Eyes: Negative for injury, tw4 pain, redness, and discharge, Cardiovascular: Negative for chest pain, palpitations, and edema, Respiratory: Negative for shortness of breath, cough, wheezing, and pleuritic chest pain, MS/Extremity: Negative for injury and deformity, Skin: Negative for injury, rash, and discoloration. 04:52 Abdomen/GI: Positive for abdominal pain, Negative for nausea and vomiting, nausea, vomiting, and diarrhea, nausea, vomiting, constipation. Exam: 04:52 Constitutional: This is a well developed, well nourished patient who is awake, alert, tw4 and in no acute distress. Head/Face: Normocephalic, atraumatic. Chest/axilla: Normal chest wall appearance and motion. Nontender with no deformity. No lesions are appreciated. Cardiovascular: Regular rate and rhythm with a normal S1 and S2. No gallops, murmurs, or rubs. Normal PMI, no JVD. No pulse deficits. Respiratory: Lungs have equal breath sounds bilaterally, clear to auscultation and percussion. No rales, rhonchi or wheezes noted. No increased work of breathing, no retractions or nasal flaring. Back: No spinal tenderness. No costovertebral tenderness. Full range of motion. MS/ Extremity: Pulses equal, no cyanosis. Neurovascular intact. Full, normal range of motion. Neuro: Awake and alert, GCS 15, oriented to person, place, time, and situation. Cranial nerves II-XII grossly intact. Motor strength 5/5 in all extremities. Sensory grossly intact. Cerebellar exam normal. Normal gait. Vital Signs: 03:31 BP 131 / 96; Pulse 67; Resp 16 S; Temp 97.9(O); Pulse Ox 100% on R/A; Weight 58.97 kg bb (R); Height 5 ft. 10 in. (177.80 cm) (R); Pain 8/10; 03:58 BP 132 / 82; Pulse 71; Resp 16; Pulse Ox 100% on R/A; ak1 05:02 BP 124 / 94; Pulse 70; Resp 16; Pulse Ox 99% on R/A; ak1 03:31 Body Mass Index 18.65 (58.97 kg, 177.80 cm) MDM: 03:31 Patient medically screened. 04/15 03:32 Order name: Basic Metabolic Panel; Complete Time: 05:35 04/15 05:35 Interpretation: Normal except: GFR 79; CL 108. 04/15 03:32 Order name: CBC with Diff; Complete Time: 05:36 04/15 05:36 Interpretation: Normal except: WBC 6.4; HGB 13.3; HCT 38.2; LYM% 51.2; EV% 36.7. 04/15 03:32 Order name: Creatinine for Radiology; Complete Time: 05:37 04/15 05:37 Interpretation: Within normal limits. 04/15 03:32 Order name: Hepatic Function; Complete Time: 05:36 04/15 05:36 Interpretation: Normal except: AST 46. tw4 04/15 03:32 Order name: Lipase; Complete Time: 05:36 4 04/15 05:37 Interpretation: Within normal limits: LIP 64. 4 04/15 03:32 Order name: IV Saline Lock; Complete Time: 03:44 4 04/15 03:32 Order name: Labs collected and sent; Complete Time: 03:44 4 04/15 03:32 Order name: Urine Dipstick-Ancillary (obtain specimen); Complete Time: 03:44 4 04/15 03:32 Order name: Urine Microscopic Only 4 04/15 03:45 Order name: Urine Dipstick--Ancillary (enter results) ar5 04/15 04:10 Order name: CT Abd/Pelvis - W/Contrast tw4 Administered Medications: 04:20 Drug: TORadol 30 mg Route: IVP; Site: right antecubital; ak1 04:36 Follow up: Response: No adverse reaction ak1 04:20 Drug: NS 0.9% 1000 ml Route: IV; Rate: 1 bolus; Site: right antecubital; ak1 05:48 Follow up: IV Status: Completed infusion ak1 Disposition: 04/15/18 05:35 Discharged to Home. Impression: Unspecified abdominal pain, Splenomegaly, not elsewhere classified. - Condition is Stable. - Discharge Instructions: Abdominal Pain, Adult, Enlarged Spleen. - Medication Reconciliation Form, Thank You Letter, Antibiotic Education, Prescription Opioid Use form. - Follow up: Duc Branham MD; When: Upon discharge from the Emergency Department; Reason: If symptoms return, Recheck today's complaints, Continuance of care. - Problem is new. - Symptoms have improved. Signatures: Dispatcher [employer] [facility] Pili Atkins RN RN Steffi Fischer RN RN ak1 Doroteo Verma MD MD tw4 Corrections: (The following items were deleted from the chart) 03:49 03:33 URINALYSIS+U.LAB.BRZ ordered. [facility] EDPR 05:37 05:35 04/15/2018 05:35 Discharged to Home. Impression: Unspecified abdominal pain. tw4 Condition is Stable. Forms are Medication Reconciliation Form, Thank You Letter, Antibiotic Education, Prescription Opioid Use. Follow up: Duc Branham; When: Upon discharge from the Emergency Department; Reason: If symptoms return, Recheck today's complaints, Continuance of care. Problem is new. Symptoms have improved. tw4 05:48 05:37 04/15/2018 05:35 Discharged to Home. Impression: Unspecified abdominal pain; ak1 Splenomegaly, not elsewhere classified. Condition is Stable. Discharge Instructions: Abdominal Pain, Adult. Forms are Medication Reconciliation Form, Thank You Letter, Antibiotic Education, Prescription Opioid Use. Follow up: Duc Branham; When: Upon discharge from the Emergency Department; Reason: If symptoms return, Recheck today's complaints, Continuance of care. Problem is new. Symptoms have improved. tw4
--- NOTE | 2018-04-16 11:32 | RAD REPORT ---
EXAM DESCRIPTION: CT Abdomen and Pelvis Without Intravenous Contrast CLINICAL HISTORY: The patient is 58 years old and is Female; FLANK PAIN TECHNIQUE: Axial computed tomography images of the abdomen and pelvis without intravenous contrast. Sagittal and coronal reformatted images were created and reviewed. This CT exam was performed usi ng one or more of the following dose reduction techniques: automated exposure control, adjustment o f the mA and/or kV according to patient size, and/or use of iterative reconstruction technique. COMPARISON: No relevant prior studies available. FINDINGS: Lung bases: Minimal subsegmental atelectasis at the lung bases.No focal lung consolidati on. ABDOMEN: Liver: Diffuse low-attenuation throughout the liver consistent with hepatocellular disease/fatty infiltration. No focal liver lesion seen. Gallbladder and bile ducts: Cholecystectomy. No ductal dilation. Pancreas: Unremarkable. No ductal dilation. Spleen: Unremarkable. No splenomegaly. Adrenals: Unremarkable. No mass. Kidneys and ureters: 3 calculi seen within the left distal ureter. Conglomerate of calculi measu res 2.5 cm in cc dimension. Largest calculus measures 8 mm. This causes moderate to marked left hydro nephrosis. Additional calculi seen within the left kidney measuring up to 8.5 mm at the lower pole. Mul tiple calculi seen within the the right kidney measuring up to 3 mm. No right hydronephrosis or urete ral calculus. Stomach and bowel: Unremarkable. No obstruction. No mucosal thickening. PELVIS: Appendix: No findings to suggest acute appendicitis. Bladder: Unremarkable. No stones. Reproductive: Unremarkable as visualized. ABDOMEN and PELVIS: Intraperitoneal space: Unremarkable. No free air. No significant fluid collection. Bones/joints: No acute fracture. No dislocation. Soft tissues: Unremarkable. Vasculature: Unremarkable. No abdominal aortic aneurysm. Lymph nodes: Unremarkable. No enlarged lymph nodes. IMPRESSION: 1. 3 calculi seen within the left distal ureter. Conglomerate of calculi measures 2.5 cm in cc dimension. Largest calculus measures 8 mm. This causes moderate to marked left hydronephrosi s. Additional bilateral parenchymal nephrolithiasis. 2. Hepatic steatosis. Electronically signed by: Gaudencio Venegas MD 04/15/2018 6:07 AM CDT Due to temporary technical issues with the PACS/Fluency reporting system, reports are being signed by the in house radiologist as a courtesy to ensure prompt reporting. The interpreting radiologist is f ully responsible for the content of the report.
== END 2018-04-15 05:48 | disposition home or self-care (01) ==
LOC: ER 03:18
DX: R16.1 Splenomegaly, not elsewhere classified (principal); F41.9 Anxiety disorder, unspecified; Z88.0 Allergy status to penicillin
CPT/HCPCS: 36415; 74177; 80048; 80076; 81003; 81015; 83690; 85025; 96361; 96374; 99284; J7030; Q9967

== ENCOUNTER 2018-11-25 23:22 | Emergency (ER) | payer OTHER ==
--- NOTE | 2018-11-26 00:59 | EDPHYS ---
Physician Documentation [facility] Name: Kris Taylor Age: 28 yrs Sex: Male : 1990 Arrival Date: 11/25/2018 Time: 23:24 Bed 19 Private MD: YANETH Physician Geovany Vasquez HPI: 11/26 01:08 This 28 yrs old Male presents to ER via Ambulatory with complaints of Chest jr8 Pain. 01:08 Onset: The symptoms/episode began/occurred today. Associated signs and symptoms: jr8 Pertinent positives: palpitations , Pertinent negatives: chest pain, constipation, diarrhea, headache, sore throat, vomiting, wheezing. Pt reports a one hour long episode of palpitations at home today, denies chest pain, SOB, diaphoresis, nausea. Has now resolved. Historical: - Allergies: 11/25 23:29 PENICILLINS; fc - Home Meds: 23:29 tramadol 50 mg Oral tab 1 tab twice a day [Active]; fc - PMHx: 23:29 Anxiety; Asthma; Back pain; Chronic pain; fc - PSHx: 23:29 None; fc - Immunization history:: Last tetanus immunization: unknown, Flu vaccine is not up to date. - Social history:: Smoking status: Patient/guardian denies using tobacco, Patient/guardian denies using alcohol, street drugs. - Ebola Screening: : Patient negative for fever greater than or equal to 101.5 degrees Fahrenheit, and additional compatible Ebola Virus Disease symptoms Patient denies exposure to infectious person Patient denies travel to an Ebola-affected area in the 21 days before illness onset. ROS: 11/26 01:08 Constitutional: Negative for fever, chills, and weight loss, Eyes: Negative for injury, jr8 pain, redness, and discharge, Cardiovascular: Negative for chest pain, palpitations, and edema, Respiratory: Negative for shortness of breath, cough, wheezing, and pleuritic chest pain, Back: Negative for injury and pain, Neuro: Negative for headache, weakness, numbness, tingling, and seizure. Exam: 01:08 Constitutional: This is a well developed, well nourished patient who is awake, alert, jr8 and in no acute distress. Chest/axilla: Normal chest wall appearance and motion. Nontender with no deformity. No lesions are appreciated. Cardiovascular: Regular rate and rhythm with a normal S1 and S2. No gallops, murmurs, or rubs. Normal PMI, no JVD. No pulse deficits. Respiratory: Lungs have equal breath sounds bilaterally, clear to auscultation No rales, rhonchi or wheezes noted. No increased work of breathing, no retractions or nasal flaring. Abdomen/GI: Soft, non-tender, with normal bowel sounds. No distension or tympany. No guarding or rebound. No evidence of tenderness throughout. Back: No spinal tenderness. No costovertebral tenderness. Full range of motion. Neuro: Awake and alert, GCS 15, oriented to person, place, time, and situation. Cranial nerves II-XII grossly intact. Motor strength 5/5 in all extremities. Sensory grossly intact. Cerebellar exam normal. Normal gait. Vital Signs: 11/25 23:32 BP 134 / 87; Pulse 85; Resp 18; Temp 98.3(TE); Pulse Ox 100% on R/A; Weight 56.7 kg fc (M); Height 5 ft. 10 in. (177.80 cm) (R); Pain 4/10; 11/26 01:14 BP 134 / 89; Pulse 90; Resp 18; Temp 98.3; Pulse Ox 100% on R/A; Pain 0/10; ak1 11/25 23:32 Body Mass Index 17.94 (56.70 kg, 177.80 cm) fc MDM: 00:34 Patient medically screened. jr8 00:56 Data reviewed: vital signs, nurses notes, EKG, and as a result, I will. Data jr8 interpreted: Pulse oximetry: on room air is 100 %. Interpretation: normal. Counseling: I had a detailed discussion with the patient and/or guardian regarding: the historical points, exam findings, and any diagnostic results supporting the discharge/admit diagnosis, the presence of at least one elevated blood pressure reading (>120/80) during this emergency department visit, the need for outpatient follow up, a rib chopper, a family practitioner. ED course: Discussed need for FU with cardiology, pt denies chest pain, SOB, dizziness, diaphoresis. PT reports he is comfortable following up outpatient and will return to ED if symptoms return or worsen, discussed cutting caffeine out of diet. 11/26 00:01 Order name: EKG - Nurse/Tech; Complete Time: 00:01 aj1 Administered Medications: No medications were administered Disposition: 08:42 Co-signature as Attending Physician, Geovany Vasquez MD I agree with the assessment and [facility] plan of care. Disposition: 11/26/18 00:58 Discharged to Home. Impression: Palpitations. - Condition is Stable. - Discharge Instructions: Holter Monitoring, Palpitations, Palpitations, [id number]. - Medication Reconciliation Form, Thank You Letter form. - Follow up: Private Physician; When: 2 - 3 days; Reason: Recheck today's complaints, Re-evaluation by your physician. Follow up: Mega Hogue MD; When: 1 week; Reason: Recheck today's complaints, Re-evaluation by your physician. - Problem is new. - Symptoms have improved. Signatures: Tami Villafuerte, RN RN aj1 Geovany Vasquez MD MD cha Chretien, Felicia, RN RN Willis Brizuela PA PA jr8 Steffi Duvall RN RN ak1 Corrections: (The following items were deleted from the chart) 01:15 00:58 11/26/2018 00:58 Discharged to Home. Impression: Palpitations. Condition is ak1 Stable. Forms are Medication Reconciliation Form, Thank You Letter, Antibiotic Education, Prescription Opioid Use. Follow up: Private Physician; When: 2 - 3 days; Reason: Recheck today's complaints, Re-evaluation by your physician. Follow up: Mega Hogue; When: 1 week; Reason: Recheck today's complaints, Re-evaluation by your physician. Problem is new. Symptoms have improved. jr8
--- NOTE | 2018-11-26 00:59 | ER ---
Nurse's Notes [facility] Name: Kris Taylor Age: 28 yrs Sex: Male : 1990 Arrival Date: 11/25/2018 Time: 23:24 Bed 19 Private MD: Diagnosis: Palpitations Presentation: 11/25 23:27 Presenting complaint: Patient states: that he is having left sided chest pain with fc palpitations. Denies any nausea, vomiting or shortness of breath. Was just laying in bed when this started. Transition of care: patient was not received from another setting of care. Onset of symptoms was November 25, 2018 at 22:55. Risk Assessment: Do you want to hurt yourself or someone else? Patient reports no desire to harm self or others. Care prior to arrival: None. 23:27 Method Of Arrival: Ambulatory 23:27 Acuity: ELSA 3 11/26 01:07 Initial Sepsis Screen: Does the patient meet any 2 criteria? No. Patient's initial ak1 sepsis screen is negative. Does the patient have a suspected source of infection? No. Patient's initial sepsis screen is negative. Triage Assessment: 11/25 23:29 General: Appears comfortable, slender, Behavior is calm, cooperative, appropriate for age. Pain: Complains of pain in left breast Pain currently is 4 out of 10 on a pain scale. Quality of pain is described as pressure, Pain began 30 min ago. Is continuous. EENT: No deficits noted. Neuro: Level of Consciousness is awake, alert, obeys commands, Oriented to person, place, time, situation, Appropriate for age. Cardiovascular: Reports chest pain, palpitations, Denies fatigue, nausea, shortness of breath, Heart tones S1 S2 present Capillary refill < 3 seconds Clubbing of nail beds is absent Rhythm is regular Chest pain is described as vague, quality is pressure, is located in left chest wall began 30 minutes prior to arrival episodes are continuous. Respiratory: Airway Trachea midline Respiratory effort is even, unlabored, Respiratory pattern is regular, symmetrical. GI: Patient currently denies nausea, vomiting. : No deficits noted. Derm: Skin is pink, warm \T\ dry. Musculoskeletal: Circulation, motion, and sensation intact. Capillary refill < 3 seconds, Range of motion: intact in all extremities. Historical: - Allergies: 23:29 PENICILLINS; fc - Home Meds: 23:29 tramadol 50 mg Oral tab 1 tab twice a day [Active]; - PMHx: 23:29 Anxiety; Asthma; Back pain; Chronic pain; - PSHx: 23:29 None; fc - Immunization history:: Last tetanus immunization: unknown, Flu vaccine is not up to date. - Social history:: Smoking status: Patient/guardian denies using tobacco, Patient/guardian denies using alcohol, street drugs. - Ebola Screening: : Patient negative for fever greater than or equal to 101.5 degrees Fahrenheit, and additional compatible Ebola Virus Disease symptoms Patient denies exposure to infectious person Patient denies travel to an Ebola-affected area in the 21 days before illness onset. Screenin/21 01:06 Abuse screen: Denies threats or abuse. Denies injuries from another. Nutritional ak1 screening: No deficits noted. Tuberculosis screening: No symptoms or risk factors identified. Fall Risk None identified. Assessment: 01:06 General: Appears in no apparent distress. Behavior is calm, cooperative. Pain: ak1 Complains of pain in left breast Pain does not radiate. Neuro: Level of Consciousness is awake, alert, obeys commands, Oriented to person, place, time, situation, Moves all extremities. Full function Gait is steady. Cardiovascular: No deficits noted. Respiratory: No deficits noted. GI: No signs and/or symptoms were reported involving the gastrointestinal system. : No signs and/or symptoms were reported regarding the genitourinary system. EENT: No signs and/or symptoms were reported regarding the EENT system. Derm: No signs and/or symptoms reported regarding the dermatologic system. Musculoskeletal: No signs and/or symptoms reported regarding the musculoskeletal system. Vital Signs: 11/25 23:32 BP 134 / 87; Pulse 85; Resp 18; Temp 98.3(TE); Pulse Ox 100% on R/A; Weight 56.7 kg (M); Height 5 ft. 10 in. (177.80 cm) (R); Pain 4/10; 11/26 01:14 BP 134 / 89; Pulse 90; Resp 18; Temp 98.3; Pulse Ox 100% on R/A; Pain 0/10; ak1 11/25 23:32 Body Mass Index 17.94 (56.70 kg, 177.80 cm) ED Course: 11/25 23:24 Patient arrived in ED. ds1 23:28 Triage completed. 23:30 EKG completed in triage. Results shown to MD. 23:32 Arm band placed on Patient placed in waiting room, Patient notified of wait time. 11/26 00:34 Steffi Duvall, RN is Primary Nurse. ak1 00:34 Willis Weaver PA is PHCP. jr8 00:34 Geovany Vasquez MD is Attending Physician. jr8 00:58 Mega Hogue MD is Referral Physician. jr8 01:06 Patient has correct armband on for positive identification. Placed in gown. Bed in low ak1 position. Call light in reach. Side rails up X 1. Pulse ox on. NIBP on. 01:06 No provider procedures requiring assistance completed. Patient did not have IV access ak1 during this emergency room visit. Patient maintains SpO2 saturation greater than 95% on room air. Administered Medications: No medications were administered Outcome: 00:58 Discharge ordered by MD. jr8 01:14 Discharged to home ambulatory. ak1 01:14 Condition: improved 01:14 Discharge instructions given to patient, Instructed on discharge instructions, follow up and referral plans. Demonstrated understanding of instructions, follow-up care. 01:15 Patient left the ED. ak1 Signatures: Bina Saucedo, JAVIER RN Sushila Barton ds1 Willis Weaver PA PA jr8 Steffi Duvall, RN RN ak1
[2018-11-26 01:26] VITALS: TEMP 98.3; O2SAT 100
[2018-11-26 01:27] VITALS: BP 134/89
--- NOTE | 2018-11-26 08:55 | EKG ---
Test Date: 2018-11-25 Test Time: 23:29:06 Filenet Developer: IKE MEASUREMENT RESULTS: Intervals: Rate: 87 [place]: 132 QRSD: 94 QT: 358 QTc: 430 [place]: P: 77 [place]: 132 QRS: 93 T: 75 INTERPRETIVE STATEMENTS: Normal sinus rhythm Rightward axis Incomplete right bundle branch block Abnormal ECG Compared to ECG 11/25/2018 23:28:21 Sinus arrhythmia no longer present Electronically Signed On 11-26-18 08:54:32 CDT by Mega Hogue
--- NOTE | 2018-11-26 08:56 | EKG ---
Test Date: 2018-11-25 Test Time: 23:28:21 Parasitologist: IKE MEASUREMENT RESULTS: Intervals: Rate: 84 [place]: 132 QRSD: 92 QT: 354 QTc: 418 [place]: P: 80 [place]: 132 QRS: 93 T: 73 INTERPRETIVE STATEMENTS: Normal sinus rhythm with sinus arrhythmia Rightward axis Pulmonary disease pattern Incomplete right bundle branch block Abnormal ECG Compared to ECG 08/14/2017 10:55:15 Incomplete right bundle branch block is now present Electronically Signed On 11-26-18 08:55:18 CDT by Mega Hogue
== END 2018-11-26 01:15 | disposition home or self-care (01) ==
LOC: ER 23:22
DX: R00.2 Palpitations (principal); F41.9 Anxiety disorder, unspecified; Z88.0 Allergy status to penicillin
CPT/HCPCS: 93005; 99284

== ENCOUNTER 2019-04-28 19:20 | Emergency (ER) | payer OTHER ==
[2019-04-28 20:08] LABS: Absolute Lymphocytes (CBC) 1.9 K/uL (0.7-4.9); Basophils % 0.7 % (0-1.3); Hematocrit 42.2 % (39.6-49.0); MPV 7.9 fL (7.6-11.3); RBC Red Blood Cell Count 4.88 M/uL (4.33-5.43)
[2019-04-28] MEDS ORDERED: DICYCLOMINE HCL 10 MG CAP ONE (20:08)
[2019-04-28] MEDS ORDERED: ONDANSETRON 4 MG/2 ML VIAL ONE (20:08)
[2019-04-28] MEDS ORDERED: NA CHLORIDE 0.9% 500 ML ONE (20:09)
[2019-04-28 20:24] LABS: Potassium 3.8 mmol/L (3.5-5.1)
--- NOTE | 2019-04-28 21:09 | ER ---
Nurse's Notes [facility] Name: Kris Taylor Age: 29 yrs Sex: Male : 1990 Arrival Date: 04/28/2019 Time: 19:24 Bed 17 Private MD: Diagnosis: Unspecified abdominal pain Presentation: 04/27 19:34 Chief complaint: Patient states: Since 7am this morning, c/o abdominal pain described ca1 as burning. Reports diarrhea. Denies N/V. Denies cough and fever. Coronavirus screen: Patient denies fever greater than 100.4F, cough, shortness of breath, or difficulty breathing. Proceed with normal triage process. Ebola Screen: Patient negative for fever greater than or equal to 101.5 degrees Fahrenheit, and additional compatible Ebola Virus Disease symptoms Patient denies exposure to infectious person. Patient denies travel to an Ebola-affected area in the 21 days before illness onset. No symptoms or risks identified at this time. Initial Sepsis Screen: Does the patient meet any 2 criteria? No. Patient's initial sepsis screen is negative. Does the patient have a suspected source of infection? No. Patient's initial sepsis screen is negative. Risk Assessment: Do you want to hurt yourself or someone else? Patient reports no desire to harm self or others. Onset of symptoms was April 28, 2019 at 07:00. 19:34 Method Of Arrival: Ambulatory ca1 19:34 Acuity: ELSA 3 ca1 Historical: - Allergies: 19:37 PENICILLINS; ca1 - Home Meds: 19:37 tramadol 50 mg Oral tab 1 tab twice a day [Active]; ca1 - PMHx: 19:37 Anxiety; Asthma; Back pain; Chronic pain; ca1 - PSHx: 19:37 None; ca1 - Immunization history:: Adult Immunizations up to date, Flu vaccine is not up to date. - Social history:: Smoking status: Patient denies any tobacco usage or history of. Screenin:21 Abuse screen: Denies threats or abuse. Denies injuries from another. Nutritional wh screening: No deficits noted. Tuberculosis screening: No symptoms or risk factors identified. Fall Risk None identified. Assessment: 20:00 General: Appears in no apparent distress. Behavior is calm, cooperative, appropriate wh for age. Pain: Complains of pain in abdomen diffusely Pain does not radiate. Pain currently is 4 out of 10 on a pain scale. Quality of pain is described as crampy, Pain began suddenly. Neuro: Level of Consciousness is awake, alert, obeys commands, Oriented to person, place, time, situation, Appropriate for age. Cardiovascular: Heart tones S1 S2. Respiratory: Airway is patent Respiratory effort is even, unlabored, Respiratory pattern is regular, symmetrical, Breath sounds are clear bilaterally. GI: Abdomen is flat, non-distended, Bowel sounds present X 4 quads. Abd is soft and non tender X 4 quads. Reports diarrhea, nausea. : No signs and/or symptoms were reported regarding the genitourinary system. EENT: No signs and/or symptoms were reported regarding the EENT system. Derm: Skin is intact, is healthy with good turgor, Skin is pink, warm \T\ dry. normal. Musculoskeletal: Circulation, motion, and sensation intact. 21:15 Reassessment: Patient appears in no apparent distress at this time. No changes from previously documented assessment. Patient and/or family updated on plan of care and expected duration. Pain level reassessed. Patient is alert, oriented x 3, equal unlabored respirations, skin warm/dry/pink. Vital Signs: 19:34 BP 119 / 75; Pulse 100; Resp 16 S; Temp 97.9(O); Pulse Ox 100% on R/A; Weight 58.97 kg ca1 (R); Height 5 ft. 10 in. (177.80 cm) (R); Pain 4/10; 20:22 BP 135 / 93; Pulse 79; Resp 18; Pulse Ox 100% on R/A; wh 21:15 BP 128 / 79; Pulse 74; Resp 18; Pulse Ox 99% ; wh 19:34 Body Mass Index 18.65 (58.97 kg, 177.80 cm) ca1 ED Course: 19:24 Patient arrived in ED. mr 19:26 [facility]C [facility] la1 19:26 Uri Saucedo MD is Attending Physician. la1 19:31 Nivia Mallory is Primary Nurse. wh 19:36 Triage completed. ca1 19:37 Arm band placed on right wrist. ca1 20:00 Inserted saline lock: 20 gauge in right antecubital area, using aseptic technique. Blood collected. 20:22 Patient has correct armband on for positive identification. Bed in low position. Call light in reach. Side rails up X 1. Pulse ox on. NIBP on. 21:23 No provider procedures requiring assistance completed. IV discontinued, intact, bleeding controlled, No redness/swelling at site. Administered Medications: 20:06 Drug: Bentyl 20 mg Route: PO; 21:24 Follow up: Response: No adverse reaction 20:08 Drug: NS 0.9% 500 ml Route: IV; Rate: bolus; Site: right antecubital; 21:24 Follow up: Response: No adverse reaction; IV Status: Completed infusion 20:10 Drug: Zofran (Ondansetron) 4 mg Route: IVP; Site: right antecubital; 21:24 Follow up: Response: No adverse reaction; Nausea is decreased Outcome: 21:08 Discharge ordered by MD. chan 21:23 Discharged to home ambulatory. 21:23 Condition: stable 21:23 Discharge instructions given to patient, Instructed on discharge instructions, follow up and referral plans. medication usage, POC Demonstrated understanding of instructions, follow-up care, medications, POC Prescriptions given X 2. 21:25 Patient left the ED. Signatures: Megha Aranda mr Kirbybhavani, Thuan, SERVICE DELIVERY CONSULTANT-C SERVICE DELIVERY CONSULTANT-Cla1 Nivia Malloyr Latanya García RN RN ca1
--- NOTE | 2019-04-28 21:10 | EDPHYS ---
Physician Documentation [facility] Name: Kris Taylor Age: 29 yrs Sex: Male : 1990 Arrival Date: 04/28/2019 Time: 19:24 Bed 17 Private MD: ED Physician Uri Saucedo HPI: 04/27 19:45 This 29 yrs old Male presents to ER via Ambulatory with complaints of la1 Abdominal Pain, Diarrhea. 19:45 The patient presents with abdominal pain in the lower abdomen. Onset: The la1 symptoms/episode began/occurred just prior to arrival. The symptoms do not radiate. Associated signs and symptoms: Pertinent positives: diarrhea, Pertinent negatives: nausea and vomiting, blood in stools, vomiting blood. The symptoms are described as burning. Modifying factors: The symptoms are alleviated by nothing, the symptoms are aggravated by nothing. Severity of pain: At its worst the pain was mild. The patient has not experienced similar symptoms in the past. Historical: - Allergies: 19:37 PENICILLINS; ca1 - Home Meds: 19:37 tramadol 50 mg Oral tab 1 tab twice a day [Active]; ca1 - PMHx: 19:37 Anxiety; Asthma; Back pain; Chronic pain; ca1 - PSHx: 19:37 None; ca1 - Immunization history:: Adult Immunizations up to date, Flu vaccine is not up to date. - Social history:: Smoking status: Patient denies any tobacco usage or history of. ROS: 19:46 Constitutional: Negative for fever, chills, and weight loss, Cardiovascular: Negative la1 for chest pain, palpitations, and edema, Respiratory: Negative for shortness of breath, cough, wheezing, and pleuritic chest pain. 19:46 Back: Negative for injury and pain, MS/Extremity: Negative for injury and deformity, Skin: Negative for injury, rash, and discoloration, Neuro: Negative for headache, weakness, numbness, tingling, and seizure. 19:46 Abdomen/GI: Positive for abdominal pain. Exam: 19:46 Constitutional: This is a well developed, well nourished patient who is awake, alert, la1 and in no acute distress. Head/Face: Normocephalic, atraumatic. ENT: Mucous membranes moist. Chest/axilla: Normal chest wall motion. Cardiovascular: Regular rate and rhythm with a normal S1 and S2. Respiratory: Lungs have equal breath sounds bilaterally, clear to auscultation. 19:46 Abdomen/GI: Inspection: abdomen appears normal, Bowel sounds: normal, in all quadrants, Palpation: soft, in all quadrants, mild abdominal tenderness, in the right lower quadrant and left lower quadrant, Indicators: McBurney's point is not tender, Tenorio's sign is negative, Rovsing's sign is negative, Obturator sign is negative, Psoas sign is negative. Vital Signs: 19:34 BP 119 / 75; Pulse 100; Resp 16 S; Temp 97.9(O); Pulse Ox 100% on R/A; Weight 58.97 kg ca1 (R); Height 5 ft. 10 in. (177.80 cm) (R); Pain 4/10; 20:22 BP 135 / 93; Pulse 79; Resp 18; Pulse Ox 100% on R/A; wh 21:15 BP 128 / 79; Pulse 74; Resp 18; Pulse Ox 99% ; wh 19:34 Body Mass Index 18.65 (58.97 kg, 177.80 cm) ca1 MDM: 19:47 Patient medically screened. la1 21:07 Data reviewed: vital signs, nurses notes, lab test result(s), and as a result, I will la1 discharge patient. Data interpreted: Pulse oximetry: is not applicable for this patient encounter. Counseling: I had a detailed discussion with the patient and/or guardian regarding: the historical points, exam findings, and any diagnostic results supporting the discharge/admit diagnosis, lab results, the need for outpatient follow up, a family practitioner, to return to the emergency department if symptoms worsen or persist or if there are any questions or concerns that arise at home. Special discussion: Based on the patient's Hx, exam, and Dx evaluation, there is no indication for emergent surgery or inpatient Tx. It is understood by the patient/guardian that if the Sx's persist or worsen they need to return immediately for re-evaluation. 04/27 19:41 Order name: Basic Metabolic Panel; Complete Time: 20:30 04/27 19:41 Order name: CBC with Diff; Complete Time: 20:30 04/27 19:41 Order name: IV Saline Lock; Complete Time: 20:01 04/27 19:41 Order name: Labs collected and sent; Complete Time: 20:01 la1 Administered Medications: 20:06 Drug: Bentyl 20 mg Route: PO; 21:24 Follow up: Response: No adverse reaction 20:08 Drug: NS 0.9% 500 ml Route: IV; Rate: bolus; Site: right antecubital; 21:24 Follow up: Response: No adverse reaction; IV Status: Completed infusion 20:10 Drug: Zofran (Ondansetron) 4 mg Route: IVP; Site: right antecubital; 21:24 Follow up: Response: No adverse reaction; Nausea is decreased Disposition: 22:58 Co-signature as Attending Physician, Uri Saucedo MD. pkl Disposition: 04/28/19 21:08 Discharged to Home. Impression: Unspecified abdominal pain. - Condition is Stable. - Discharge Instructions: Abdominal Pain, Adult. - Prescriptions for Bentyl 20 mg Oral Tablet - take 1 tablet by ORAL route every 6 hours As needed; 20 tablet. Zofran 4 mg Oral Tablet - take 1 tablet by ORAL route every 12 hours As needed; 6 tablet. - Medication Reconciliation Form, Thank You Letter form. - Follow up: Private Physician; When: 2 - 3 days; Reason: Recheck today's complaints, Re-evaluation by your physician. - Problem is new. - Symptoms have improved. Signatures: Dispatcher [employer] EDMS Uri Saucedo MD MD pkl Thuan Burk, BOSTON CUTTER-C BOSTON CUTTER-Cla1 Nivia Mallory Ricky, Latanya, RN RN ca1 Corrections: (The following items were deleted from the chart) 21:25 21:08 04/28/2019 21:08 Discharged to Home. Impression: Unspecified abdominal pain. Condition is Stable. Forms are Medication Reconciliation Form, Thank You Letter, Antibiotic Education, Prescription Opioid Use. Follow up: Private Physician; When: 2 - 3 days; Reason: Recheck today's complaints, Re-evaluation by your physician. Problem is new. Symptoms have improved. la1
[2019-04-28 21:32] VITALS: TEMP 97.9; O2SAT 100
[2019-04-28 21:33] VITALS: BP 135/93
== END 2019-04-28 21:25 | disposition home or self-care (01) ==
LOC: ER 19:20
DX: R10.9 Unspecified abdominal pain (principal); Z88.0 Allergy status to penicillin
CPT/HCPCS: 96361; 85025; 80048; 36415; 96374; 99284; J7040; J2405

== ENCOUNTER 2019-06-12 15:10 | Emergency (ER) | payer OTHER ==
[2019-06-12] MEDS ORDERED: FAMOTIDINE 20 MG TAB ONE (18:06)
[2019-06-12] MEDS ORDERED: hydrOXYzine HCL 25 MG TAB ONE (18:06)
[2019-06-12] MEDS ORDERED: predniSONE 20 MG TAB ONE (18:06)
--- NOTE | 2019-06-13 03:34 | ER ---
Nurse's Notes [facility] Name: Kris Taylor Age: 29 yrs Sex: Male : 1990 Arrival Date: 06/12/2019 Time: 15:13 Bed 25 Private MD: Diagnosis: Rash and other nonspecific skin eruption Presentation: 06/11 15:40 Chief complaint: Patient states: Woke this morning with red, itchy rash all over body. jl7 Denies any new soaps, denies new foods. Coronavirus screen: Proceed with normal triage. Patient denies a cough. Patient denies shortness of breath or difficulty breathing. Patient denies measured and/or subjective temperature greater than 100.4F prior to today's visit. Patient denies travel on a cruise ship or to a country the [facility] currently lists as an affected area. Patient denies contact with known and/or suspected case of COVID-19. Ebola Screen: No symptoms or risks identified at this time. Initial Sepsis Screen: Does the patient meet any 2 criteria? No. Patient's initial sepsis screen is negative. Does the patient have a suspected source of infection? No. Patient's initial sepsis screen is negative. Risk Assessment: Do you want to hurt yourself or someone else? Patient reports no desire to harm self or others. Onset of symptoms was June 12, 2019. Care prior to arrival: None. 15:40 Method Of Arrival: Ambulatory [facility] 15:40 Acuity: ELSA 3 jl7 Triage Assessment: 15:45 General: Appears in no apparent distress. uncomfortable, Behavior is calm, cooperative, jl7 appropriate for age. Pain: Denies pain. Neuro: Level of Consciousness is awake, alert, obeys commands, Oriented to person, place, time, situation. Cardiovascular: Patient's skin is warm and dry. Pulses are palpable in right radial artery and left radial artery Rhythm is regular. Respiratory: Airway is patent Respiratory effort is even, unlabored, Respiratory pattern is regular, symmetrical. Derm: Skin is pink, warm \T\ dry. Rash noted that is itchy, red, raised. Historical: - Allergies: 15:45 PENICILLINS; jl7 - Home Meds: 15:45 tramadol 50 mg Oral tab 1 tab twice a day [Active]; jl7 - PMHx: 15:45 Anxiety; Asthma; Back pain; Chronic pain; jl7 - PSHx: 15:45 None; jl7 - Immunization history:: Adult Immunizations up to date. - Social history:: Smoking status: Patient denies any tobacco usage or history of. Screenin:06 Abuse screen: Denies threats or abuse. Denies injuries from another. Nutritional ls4 screening: No deficits noted. Tuberculosis screening: No symptoms or risk factors identified. Fall Risk None identified. Assessment: 17:15 General: Appears in no apparent distress. comfortable, Behavior is calm, cooperative. ls4 17:15 Neuro: No deficits noted. Cardiovascular: No deficits noted. Respiratory: No deficits ls4 noted. GI: No deficits noted. No signs and/or symptoms were reported involving the gastrointestinal system. : No deficits noted. No signs and/or symptoms were reported regarding the genitourinary system. Derm: Skin is pink, warm \T\ dry. Rash noted that is itchy, red, on back. Musculoskeletal: No deficits noted. No signs and/or symptoms reported regarding the musculoskeletal system. 18:08 Reassessment: Patient appears in no apparent distress at this time. Patient and/or ls4 family updated on plan of care and expected duration. Pain level reassessed. Patient is alert, oriented x 3, equal unlabored respirations, skin warm/dry/pink. Patient denies pain at this time. Vital Signs: 15:40 BP 134 / 88; Pulse 119; Resp 17; Temp 98.7(O); Pulse Ox 100% ; Weight 56.7 kg; Pain jl7 0/10; 17:53 BP 126 / 83; Pulse 82; Resp 16; Temp 98.0(O); Pulse Ox 100% ; lt1 ED Course: 15:13 Patient arrived in ED. ds1 15:44 Triage completed. jl7 15:45 Arm band placed on right wrist. jl7 15:46 Patient placed in waiting room, Patient notified of wait time. jl7 17:16 Seng Contreras MD is Attending Physician. kdr 17:46 Geeta Li, JAVIER is Primary Nurse. ls4 18:06 Patient has correct armband on for positive identification. Bed in low position. Call ls4 light in reach. Side rails up X 1. Pulse ox on. NIBP on. Verbal reassurance given. 18:06 No provider procedures requiring assistance completed. Patient did not have IV access ls4 during this emergency room visit. Patient maintains SpO2 saturation greater than 95% on room air. Administered Medications: 18:03 Drug: predniSONE 60 mg Route: PO; ls4 18:27 Follow up: Response: No adverse reaction; Marked relief of symptoms ls4 18:03 Drug: Atarax 50 mg Route: PO; ls4 18:26 Follow up: Response: No adverse reaction; Marked relief of symptoms ls4 18:03 Drug: Pepcid 20 mg Route: PO; ls4 18:26 Follow up: Response: No adverse reaction; Marked relief of symptoms ls4 Outcome: 18:18 Discharge ordered by . kdr 19:05 Condition: stable ls4 19:05 Discharged to home ambulatory. ls4 19:05 Discharge instructions given to patient, family, Instructed on discharge instructions, follow up and referral plans. medication usage, Demonstrated understanding of instructions, follow-up care, medications. 19:06 Patient left the ED. jb4 Signatures: Seng Contreras MD MD kdr Sanford, Demi ds1 Manny Mitchell RN RN jb4 Margarita Alvarado RN RN jl7 Geeta Li RN RN isabel4 Regla Guillen 1
--- NOTE | 2019-06-13 03:34 | EDPHYS ---
Physician Documentation [facility] Name: Kris Taylor Age: 29 yrs Sex: Male : 1990 Arrival Date: 06/12/2019 Time: 15:13 Bed 25 Private MD: ED Physician Seng Contreras HPI: 06/12 08:02 This 29 yrs old Male presents to ER via Ambulatory with complaints of Rash. kdr 08:02 The patient's rash thought to be caused by an unknown cause. The rash is located on the kdr body diffusely. The rash can be described as diffuse, erythematous, macular. Onset: The symptoms/episode began/occurred yesterday. Associated signs and symptoms: Pertinent positives: itching, Pertinent negatives: difficulty breathing, fever, nausea, Pain swelling of lips, swelling of throat, swelling of tongue, vomiting, wheezing. Severity of symptoms: At their worst the symptoms were mild moderate just prior to arrival, in the emergency department the symptoms have improved mildly. Treatment given at home: None. The patient has not experienced similar symptoms in the past. The patient has not recently seen a physician. Unable to determine any possible cause. Historical: - Allergies: 06/11 15:45 PENICILLINS; jl7 - Home Meds: 15:45 tramadol 50 mg Oral tab 1 tab twice a day [Active]; jl7 - PMHx: 15:45 Anxiety; Asthma; Back pain; Chronic pain; jl7 - PSHx: 15:45 None; jl7 - Immunization history:: Adult Immunizations up to date. - Social history:: Smoking status: Patient denies any tobacco usage or history of. ROS: 06/12 08:02 Constitutional: Negative for fever, chills, and weight loss, Eyes: Negative for injury, kdr pain, redness, and discharge, ENT: Negative for injury, pain, and discharge, Neck: Negative for injury, pain, and swelling, Cardiovascular: Negative for chest pain, palpitations, and edema, Respiratory: Negative for shortness of breath, cough, wheezing, and pleuritic chest pain, Abdomen/GI: Negative for abdominal pain, nausea, vomiting, diarrhea, and constipation, Back: Negative for injury and pain, : Negative for injury, bleeding, discharge, and swelling, MS/Extremity: Negative for injury and deformity, Neuro: Negative for headache, weakness, numbness, tingling, and seizure activity. Psych: Negative for depression, anxiety, suicide ideation, homicidal ideation, and hallucinations, Allergy/Immunology: Negative for hives, rash, and allergies, Endocrine: Negative for neck swelling, polydipsia, polyuria, polyphagia, and marked weight changes, Hematologic/Lymphatic: Negative for swollen nodes, abnormal bleeding, and unusual bruising. Skin: Positive for rash. Exam: 08:02 Constitutional: This is a well developed, well nourished patient who is awake, alert, kdr and in no acute distress. Head/Face: Normocephalic, atraumatic. Eyes: Pupils equal round and reactive to light, extra-ocular motions intact. Lids and lashes normal. Conjunctiva and sclera are non-icteric and not injected. Cornea within normal limits. Periorbital areas with no swelling, redness, or edema. Neck: Trachea midline, no thyromegaly or masses palpated, and no cervical lymphadenopathy. Supple, full range of motion without nuchal rigidity, or vertebral point tenderness. No Meningismus. Chest/axilla: Normal chest wall appearance and motion. Nontender with no deformity. No lesions are appreciated. Cardiovascular: Regular rate and rhythm with a normal S1 and S2. No gallops, murmurs, or rubs. Normal PMI, no JVD. No pulse deficits. Respiratory: Lungs have equal breath sounds bilaterally, clear to auscultation and percussion. No rales, rhonchi or wheezes noted. No increased work of breathing, no retractions or nasal flaring. Abdomen/GI: Soft, non-tender, with normal bowel sounds. No distension or tympany. No guarding or rebound. No evidence of tenderness throughout. Back: No spinal tenderness. No costovertebral tenderness. Full range of motion. MS/ Extremity: Pulses equal, no cyanosis. Neurovascular intact. Full, normal range of motion. Neuro: Awake and alert, GCS 15, oriented to person, place, time, and situation. Cranial nerves II-XII grossly intact. Motor strength 5/5 in all extremities. Sensory grossly intact. Cerebellar exam normal. Normal gait. Psych: Awake, alert, with orientation to person, place and time. Behavior, mood, and affect are within normal limits. 08:02 Skin: rash a mild rash is noted, rash can be described as macular, nonspecific. Vital Signs: 06/11 15:40 BP 134 / 88; Pulse 119; Resp 17; Temp 98.7(O); Pulse Ox 100% ; Weight 56.7 kg; Pain jl7 0/10; 17:53 BP 126 / 83; Pulse 82; Resp 16; Temp 98.0(O); Pulse Ox 100% ; lt1 MDM: 18:18 Patient medically screened. kdr 06/12 08:02 Data reviewed: vital signs, nurses notes. Counseling: I had a detailed discussion with kdr the patient and/or guardian regarding: the historical points, exam findings, and any diagnostic results supporting the discharge/admit diagnosis, the need for outpatient follow up. 06/11 17:08 Order name: Group A Streptococcus Rapid Sc; Complete Time: 17:24 EDSD 06/11 17:19 Order name: Throat Culture EDSD 06/11 17:37 Order name: VS Recheck: Report results to MD; Complete Time: 17:47 [facility] Administered Medications: 06/11 18:03 Drug: predniSONE 60 mg Route: PO; ls4 18:27 Follow up: Response: No adverse reaction; Marked relief of symptoms ls4 18:03 Drug: Atarax 50 mg Route: PO; ls4 18:26 Follow up: Response: No adverse reaction; Marked relief of symptoms ls4 18:03 Drug: Pepcid 20 mg Route: PO; ls4 18:26 Follow up: Response: No adverse reaction; Marked relief of symptoms ls4 Disposition: 06/12/19 18:18 Discharged to Home. Impression: Rash and other nonspecific skin eruption. - Condition is Stable. - Discharge Instructions: Rash, Ciwu-[id number]. - Prescriptions for Hydroxyzine HCl 25 mg Oral Tablet - take 1 tablet by ORAL route every 6 hours As needed; 30 tablet. Medrol (Vishnu) 4 mg Oral Tablets, Dose Pack - take 1 tablet by ORAL route as directed - follow package instructions; 1 packet. Pepcid 20 mg Oral Tablet - take 1 tablet by ORAL route once daily; 20 tablet. - Medication Reconciliation Form, Thank You Letter form. - Follow up: Private Physician; When: 2 - 3 days; Reason: If symptoms return, Further diagnostic work-up, Recheck today's complaints, Continuance of care, Re-evaluation by your physician. - Problem is new. - Symptoms have improved. Signatures: Dispatcher [employer] EDMS Seng Contreras MD MD kdr Manny Mitchell, RN RN jb4 Margarita Alvarado RN RN jl7 Geeta Li, RN RN ls4 Corrections: (The following items were deleted from the chart) 19:06 18:18 06/12/2019 18:18 Discharged to Home. Impression: Rash and other nonspecific skin jb4 eruption. Condition is Stable. Forms are Medication Reconciliation Form, Thank You Letter, Antibiotic Education, Prescription Opioid Use. Follow up: Private Physician; When: 2 - 3 days; Reason: If symptoms return, Further diagnostic work-up, Recheck today's complaints, Continuance of care, Re-evaluation by your physician. Problem is new. Symptoms have improved. kdr
[2019-06-13 16:53] VITALS: O2SAT 100
[2019-06-13 16:54] VITALS: BP 126/83; TEMP 98
== END 2019-06-12 19:06 | disposition home or self-care (01) ==
LOC: ER 15:10
DX: R21 Rash and other nonspecific skin eruption (principal); F41.9 Anxiety disorder, unspecified; Z88.0 Allergy status to penicillin
CPT/HCPCS: 87070; 87081; 99284; J7512

== ENCOUNTER 2019-07-07 03:05 | Emergency (ER) | payer OTHER ==
[2019-07-07 04:37] LABS: Basophils % 0.9 % (0-1.3); Hematocrit 38.8 % (39.6-49.0); Lymphocytes % 44.2 % (15.3-44.8); MPV 8.5 fL (7.6-11.3); RBC Red Blood Cell Count 4.52 M/uL (4.33-5.43)
[2019-07-07 04:39] LABS: Protime INR 1.07
[2019-07-07 05:01] LABS: ALT/SGPT 20 U/L (12-78); AST/SGOT 12 U/L (15-37); Albumin 4.3 g/dL (3.4-5.0); Alkaline Phosphatase 61 U/L (45-117); BUN Blood Urea Nitrogen 20 mg/dL (7-18); Bicarbonate 27 mmol/L (21-32); Bilirubin Direct < 0.1 mg/dL (0-0.2); Bilirubin Total 0.3 mg/dL (0.2-1.0); Glucose Level 72 mg/dL (74-106); Magnesium 2.2 mg/dL (1.8-2.4); NT PRO-BNP 20 pg/mL (<125); Potassium 3.2 mmol/L (3.5-5.1); Protein, Total 7.8 g/dL (6.4-8.2); Sodium Level 140 mmol/L (136-145); Troponin (Emerg Dept Use Only) < 0.02 ng/mL (0.0-0.045)
[2019-07-07] MEDS ORDERED: POTASSIUM CL SA 10 MEQ TAB PO ONE (06:11)
[2019-07-07 07:40] VITALS: TEMP 97.7
[2019-07-07 07:41] VITALS: O2SAT 100
[2019-07-07 07:43] VITALS: BP 129/83
--- NOTE | 2019-07-07 11:48 | RAD REPORT ---
EXAM DESCRIPTION: Tomas Single View07/07/2019 5:13 am CLINICAL HISTORY: Chest pain COMPARISON: 2017 FINDINGS: The lungs remain hyperaerated. The lungs appear clear of acute infiltrate. The heart is normal size IMPRESSION: No acute abnormalities displayed
--- NOTE | 2019-07-07 14:05 | EKG ---
Test Date: 2019-07-07 Test Time: 03:21:11 Administrative Staff Supervisor: SWG MEASUREMENT RESULTS: Intervals: Rate: 92 TN: 136 QRSD: 100 QT: 344 QTc: 425 [place]: P: 102 TN: 136 QRS: 86 T: 112 INTERPRETIVE STATEMENTS: Normal sinus rhythm Incomplete right bundle branch block Septal infarct, age undetermined Lateral infarct, age undetermined Electronically Signed On 07-07-19 14:04:29 CDT by Jerome Cohn
--- NOTE | 2019-07-08 18:39 | EDPHYS ---
Physician Documentation [facility] Name: Kris Taylor Age: 29 yrs Sex: Male : 1990 Arrival Date: 07/07/2019 Time: 03:06 Bed 16 Private MD: ED Physician Sergio Loaiza HPI: 07/06 05:37 This 29 yrs old Male presents to ER via Ambulatory with complaints of Chest mh7 Pain. 05:37 The patient or guardian reports chest pain that is located primarily in the anterior mh7 chest wall, left. The pain does not radiate. Associated signs and symptoms: Pertinent negatives: abdominal pain, cough, diaphoresis, dizziness, headache, lower extremity pain, lower extremity swelling, lightheadedness, nausea, near syncope, palpitations, recent travel, shortness of breath, syncope, vomiting. The chest pain is described as sharp. Duration: The patient or guardian reports multiple episodes, that are intermittent, that wax and wane, with no pattern. Modifying factors: The symptoms are alleviated by nothing. the symptoms are aggravated by nothing. Severity of pain: At its worst the pain was moderate last night, in the emergency department the pain has improved moderately. The patient has experienced similar episodes in the past, multiple times. Historical: - Allergies: 03:08 PENICILLINS; sg - PMHx: 03:08 Anxiety; Asthma; Back pain; Chronic pain; sg - PSHx: 03:08 None; sg - Immunization history:: Adult Immunizations up to date. - Social history:: Smoking status: Patient denies any tobacco usage or history of. ROS: 05:37 Constitutional: Negative for fever, chills, and weight loss, Eyes: Negative for injury, mh7 pain, redness, and discharge, Neck: Negative for injury, pain, and swelling. 05:37 ENT: Negative for injury, pain, and discharge, Respiratory: Negative for shortness of breath, cough, wheezing, and pleuritic chest pain, Abdomen/GI: Negative for abdominal pain, nausea, vomiting, diarrhea, and constipation, Back: Negative for injury and pain, : Negative for injury, bleeding, discharge, and swelling, MS/Extremity: Negative for injury and deformity, Skin: Negative for injury, rash, and discoloration, Neuro: Negative for headache, weakness, numbness, tingling, and seizure, Psych: Negative for depression, anxiety, suicide ideation, homicidal ideation, and hallucinations, Allergy/Immunology: Negative for hives, rash, and allergies, Endocrine: Negative for neck swelling, polydipsia, polyuria, polyphagia, and marked weight changes, Hematologic/Lymphatic: Negative for swollen nodes, abnormal bleeding, and unusual bruising. Exam: 05:37 Constitutional: This is a well developed, well nourished patient who is awake, alert, mh7 and in no acute distress. Head/Face: Normocephalic, atraumatic. Neck: Trachea midline, no thyromegaly or masses palpated, and no cervical lymphadenopathy. Supple, full range of motion without nuchal rigidity, or vertebral point tenderness. No Meningismus. 05:37 Cardiovascular: Regular rate and rhythm with a normal S1 and S2. No gallops, murmurs, or rubs. Normal PMI, no JVD. No pulse deficits. Respiratory: Lungs have equal breath sounds bilaterally, clear to auscultation and percussion. No rales, rhonchi or wheezes noted. No increased work of breathing, no retractions or nasal flaring. Abdomen/GI: Soft, non-tender, with normal bowel sounds. No distension or tympany. No guarding or rebound. No evidence of tenderness throughout. Back: No spinal tenderness. No costovertebral tenderness. Full range of motion. Skin: Warm, dry with normal turgor. Normal color with no rashes, no lesions, and no evidence of cellulitis. MS/ Extremity: Pulses equal, no cyanosis. Neurovascular intact. Full, normal range of motion. Neuro: Awake and alert, GCS 15, oriented to person, place, time, and situation. Cranial nerves II-XII grossly intact. Motor strength 5/5 in all extremities. Sensory grossly intact. Cerebellar exam normal. Normal gait. Psych: Awake, alert, with orientation to person, place and time. Behavior, mood, and affect are within normal limits. 05:37 Chest/axilla: Inspection: normal, Palpation: tenderness, that is moderate, of the anterior aspect of left upper chest, that totally reproduces the patient's complaints, Axilla: are normal, Lymph nodes: lymphadenopathy is not appreciated. Vital Signs: 03:08 BP 112 / 72; Pulse 108; Resp 17; Temp 97.7; Pulse Ox 99% on R/A; Pain 4/10; sg 05:58 BP 124 / 81; Pulse 97; Resp 18; Pulse Ox 100% on R/A; sg 06:14 BP 129 / 83; Pulse 87; Resp 18; Pulse Ox 100% on R/A; ea MDM: 04:50 Patient medically screened. 7 06:25 Differential diagnosis: acute myocardial infarction, chest wall pain, costochondritis, mh7 pneumonia. HEART Score: History: Slightly Suspicious (0), ECG: Non specific repolarization disturbance / LBTB / PM (1), Age: < or = 45 years (0), Risk Factors: No Risk Factors Known (0), Troponin: < or = 1 x Normal Limit (0), Total Score = 0. Data reviewed: vital signs, nurses notes, lab test result(s), EKG, radiologic studies, plain films. Counseling: I had a detailed discussion with the patient and/or guardian regarding: the historical points, exam findings, and any diagnostic results supporting the discharge/admit diagnosis, lab results, radiology results, the need for outpatient follow up, to return to the emergency department if symptoms worsen or persist or if there are any questions or concerns that arise at home. 07/06 04:05 Order name: Basic Metabolic Panel; Complete Time: 05:57 07/06 04:05 Order name: CBC with Diff; Complete Time: 04:51 07/06 04:05 Order name: LFT's; Complete Time: 05:57 07/06 04:05 Order name: Magnesium; Complete Time: 05:57 07/06 04:05 Order name: NT PRO-BNP; Complete Time: 05:57 07/06 04:05 Order name: PT-INR; Complete Time: 04:51 07/06 03:11 Order name: EKG - Nurse/Tech; Complete Time: 04:28 07/06 04:05 Order name: Troponin (emerg Dept Use Only); Complete Time: 05:57 07/06 04:05 Order name: XRAY Chest (1 view) 07/06 04:05 Order name: EKG; Complete Time: 04:07 07/06 04:05 Order name: Cardiac monitoring; Complete Time: 04:28 07/06 04:05 Order name: EKG - Nurse/Tech; Complete Time: 04:06 07/06 04:05 Order name: IV Saline Lock; Complete Time: ea 07/06 04:05 Order name: Labs collected and sent; Complete Time: ea 07/06 04:05 Order name: O2 Per Protocol; Complete Time: ea 07/06 04:05 Order name: O2 Sat Monitoring; Complete Time: : Administered Medications: 06:05 Drug: Potassium Chloride 40 mEq Route: PO; 06:55 Follow up: Response: No adverse reaction ea Disposition: 07/07/19 06:26 Discharged to Home. Impression: Chest pain, unspecified. - Condition is Stable. - Discharge Instructions: Chest Wall Pain. - Medication Reconciliation Form, Thank You Letter, Antibiotic Education, Prescription Opioid Use form. - Follow up: Private Physician; When: 1 - 2 days; Reason: Worsening of condition, Re-evaluation by your physician. - Problem is an acute exacerbation. - Symptoms are resolved. Signatures: Dispatcher [employer] EDMaycol Ballard RN RN sg Antunez, Elena, RN RN ea Holmes, Maurice, MD MD mh7 Corrections: (The following items were deleted from the chart) 06:55 06:26 07/07/2019 06:26 Discharged to Home. Impression: Chest pain, unspecified. ea Condition is Stable. Forms are Medication Reconciliation Form, Thank You Letter, Antibiotic Education, Prescription Opioid Use. Follow up: Private Physician; When: 1 - 2 days; Reason: Worsening of condition, Re-evaluation by your physician. Problem is an acute exacerbation. Symptoms are resolved. mh7
--- NOTE | 2019-07-08 18:39 | ER ---
Nurse's Notes [facility] Name: Kris Taylor Age: 29 yrs Sex: Male : 1990 Arrival Date: 07/07/2019 Time: 03:06 Bed 16 Private MD: Diagnosis: Chest pain, unspecified Presentation: 07/06 03:08 Acuity: ELSA 3 sg 03:08 Chief complaint: Patient states: Chest pain that began around midnight, reports having sg Mitral Valve Prolapse, has been seen by. 03:08 Coronavirus screen: Proceed with normal triage. Ebola Screen: Patient negative for sg fever greater than or equal to 101.5 degrees Fahrenheit, and additional compatible Ebola Virus Disease symptoms Patient denies exposure to infectious person. Patient denies travel to an Ebola-affected area in the 21 days before illness onset. No symptoms or risks identified at this time. Initial Sepsis Screen: Does the patient meet any 2 criteria? No. Patient's initial sepsis screen is negative. Does the patient have a suspected source of infection? No. Patient's initial sepsis screen is negative. Risk Assessment: Do you want to hurt yourself or someone else? Patient reports no desire to harm self or others. Onset of symptoms was July 07, 2019. Care prior to arrival: None. Transition of care: patient was not received from another setting of care. 03:08 Method Of Arrival: Ambulatory sg Historical: - Allergies: 03:08 PENICILLINS; sg - PMHx: 03:08 Anxiety; Asthma; Back pain; Chronic pain; sg - PSHx: 03:08 None; sg - Immunization history:: Adult Immunizations up to date. - Social history:: Smoking status: Patient denies any tobacco usage or history of. Screenin:33 Abuse screen: Denies threats or abuse. Denies injuries from another. Nutritional sg screening: No deficits noted. Tuberculosis screening: No symptoms or risk factors identified. Never had TB. Fall Risk None identified. Assessment: 03:08 General: Appears in no apparent distress. slender, well groomed, well developed, well sg nourished, Behavior is calm, cooperative, appropriate for age. Pain: Complains of pain in chest Quality of pain is described as aching. Neuro: Level of Consciousness is awake, alert, obeys commands, Oriented to person, place, time, Moves all extremities. Full function Gait is steady, Speech is normal, Facial symmetry appears normal. Cardiovascular: Capillary refill is brisk in bilateral fingers Patient's skin is warm and dry. Chest pain is described as vague, is located in anterior chest wall. Respiratory: Airway is patent Respiratory effort is even, unlabored, Respiratory pattern is regular, symmetrical. GI: No signs and/or symptoms were reported involving the gastrointestinal system. : No signs and/or symptoms were reported regarding the genitourinary system. EENT: No signs and/or symptoms were reported regarding the EENT system. Derm: Skin is pink, warm \T\ dry. Musculoskeletal: Circulation, motion, and sensation intact. Range of motion: intact in all extremities. 04:50 Reassessment: Patient and/or family updated on plan of care and expected duration. Pain ea level reassessed. Patient is alert, oriented x 3, equal unlabored respirations, skin warm/dry/pink. 05:50 Reassessment: Patient and/or family updated on plan of care and expected duration. Pain ea level reassessed. Patient is alert, oriented x 3, equal unlabored respirations, skin warm/dry/pink. 06:00 Reassessment: Patient and/or family updated on plan of care and expected duration. Pain ea level reassessed. Patient is alert, oriented x 3, equal unlabored respirations, skin warm/dry/pink. 06:54 Reassessment: Patient and/or family updated on plan of care and expected duration. Pain ea level reassessed. Patient is alert, oriented x 3, equal unlabored respirations, skin warm/dry/pink. Discharge instruction given to patient, verbalized the understanding of instruction. Pt left ED ambulatory tolerating well. Vital Signs: 03:08 BP 112 / 72; Pulse 108; Resp 17; Temp 97.7; Pulse Ox 99% on R/A; Pain 4/10; sg 05:58 BP 124 / 81; Pulse 97; Resp 18; Pulse Ox 100% on R/A; sg 06:14 BP 129 / 83; Pulse 87; Resp 18; Pulse Ox 100% on R/A; ea ED Course: 03:06 Patient arrived in ED. ds1 03:08 Triage completed. sg 03:08 Arm band placed on. sg 03:21 EKG done, by ED staff, reviewed by Sergio Loaiza MD. sg 04:00 Sergio Loaiza MD is Attending Physician. mh7 04:03 Cici Carrasquillo, RN is Primary Nurse. ea 04:32 No provider procedures requiring assistance completed. Initial lab(s) drawn, by me, sg sent to lab. Inserted saline lock: 20 gauge in right upper arm, using aseptic technique. Blood collected. Patient maintains SpO2 saturation greater than 95% on room air. 04:50 Patient has correct armband on for positive identification. Bed in low position. Call ea light in reach. Side rails up X 1. equipment monitor phototypesetting on. 05:14 XRAY Chest (1 view) In Process Unspecified. EDMS 06:54 IV discontinued, intact, bleeding controlled, No redness/swelling at site. Pressure ea dressing applied. Administered Medications: 06:05 Drug: Potassium Chloride 40 mEq Route: PO; ea 06:55 Follow up: Response: No adverse reaction ea Outcome: 06:26 Discharge ordered by . [facility] 06:54 Condition: stable ea 06:55 Discharged to home ambulatory. 06:55 Discharge instructions given to patient, Instructed on discharge instructions, follow up and referral plans. Demonstrated understanding of instructions, follow-up care. 06:55 Patient left the ED. ea Signatures: Dispatcher [employer] EDMS Maycol Humphrey RN RN Sushila Parnell ds1 Cici Carrasquillo, RN RN Sergio Andersen MD MD [facility]
== END 2019-07-07 06:55 | disposition home or self-care (01) ==
LOC: ER 03:05
DX: R07.9 Chest pain, unspecified (principal); Z88.0 Allergy status to penicillin
CPT/HCPCS: 36415; 71045; 80048; 80076; 83735; 83880; 84484; 85025; 85610; 93005; 99285

== ENCOUNTER 2020-08-02 12:37 | Emergency (ER) | payer OTHER ==
--- NOTE | 2020-08-02 13:45 | RAD REPORT ---
EXAM DESCRIPTION: Tomas Single View08/02/2020 1:14 pm CLINICAL HISTORY: Chest pain COMPARISON: 2019 FINDINGS: Lungs are hyperaerated. The lungs appear clear of acute infiltrate. The heart is normal size
[2020-08-02 14:01] LABS: Basophils % 0.9 % (0-1.3); Hematocrit 39.5 % (39.6-49.0); Lymphocytes % 38.4 % (15.3-44.8); MPV 8.2 fL (7.6-11.3); RBC Red Blood Cell Count 4.53 M/uL (4.33-5.43)
[2020-08-02 14:07] LABS: Protime INR 1.07
[2020-08-02 14:28] LABS: ALT/SGPT 22 U/L (12-78); AST/SGOT 13 U/L (15-37); Albumin 4.3 g/dL (3.4-5.0); Alkaline Phosphatase 53 U/L (45-117); BUN Blood Urea Nitrogen 12 mg/dL (7-18); Bicarbonate 28 mmol/L (21-32); Bilirubin Direct 0.1 mg/dL (0-0.2); Bilirubin Total 0.5 mg/dL (0.2-1.0); Glucose Level 93 mg/dL (74-106); Magnesium 2.1 mg/dL (1.8-2.4); NT PRO-BNP 49 pg/mL (<125); Potassium 4.3 mmol/L (3.5-5.1); Protein, Total 7.5 g/dL (6.4-8.2); Sodium Level 140 mmol/L (136-145); Troponin (Emerg Dept Use Only) < 0.02 ng/mL (0.0-0.045)
--- NOTE | 2020-08-02 14:31 | EDPHYS ---
Physician Documentation [facility] Name: Kris Taylor Age: 30 yrs Sex: Male : 1990 Arrival Date: 08/02/2020 Time: 12:38 Bed 25 Private MD: ED Physician Geovany Vasquez HPI: 08/02 16:15 This 30 yrs old Male presents to ER via Ambulatory with complaints of Chest kb Pain, Back Pain. 16:15 The patient or guardian reports chest pain that is located primarily in the anterior kb chest wall, left. The pain radiates to left back. Associated signs and symptoms: The patient has no apparent associated signs or symptoms. The chest pain is described as sharp. Duration: The patient or guardian reports multiple episodes, that are intermittent. Modifying factors: The symptoms are alleviated by remaining still, rest, the symptoms are aggravated by llifting, changing positions. Severity of pain: At its worst the pain was mild moderate in the emergency department the pain is unchanged. The patient has not experienced similar symptoms in the past. The patient has not recently seen a physician. Pt reports left lower chest pain that radiates to back when lifting or changing positions. Pain started yesterday. . Historical: - Allergies: 12:47 PENICILLINS; ll1 - PMHx: 12:47 Anxiety; Asthma; Back pain; Chronic pain; mitral valve prolapse; ll1 - PSHx: 12:47 None; ll1 - Immunization history:: Flu vaccine is up to date. - Social history:: Smoking status: Patient denies any tobacco usage or history of. ROS: 16:11 Constitutional: Negative for fever, chills, and weight loss. kb 16:11 Cardiovascular: Positive for chest pain, with movement, of the left breast, Negative for edema, orthopnea, palpitations, paroxysmal nocturnal dyspnea. 16:11 All other systems are negative. Exam: 14:56 Constitutional: This is a well developed, well nourished patient who is awake, alert, kb and in no acute distress. Head/Face: Normocephalic, atraumatic. ENT: Moist Mucous membranes Cardiovascular: Regular rate and rhythm with a normal S1 and S2. No gallops, murmurs, or rubs. No pulse deficits. Respiratory: Respirations even and unlabored. No increased work of breathing, no retractions or nasal flaring. Abdomen/GI: Soft, non-tender. No distention Skin: Warm, dry with normal turgor. Normal color. MS/ Extremity: Pulses equal, no cyanosis. Neurovascular intact. Full, normal range of motion. Neuro: Awake and alert, GCS 15, oriented to person, place, time, and situation. Moves all extremities. Normal gait. Psych: Awake, alert, with orientation to person, place and time. Behavior, mood, and affect are within normal limits. 14:56 ECG was reviewed by the Attending Physician. Vital Signs: 12:45 BP 129 / 87; Pulse 79; Resp 16; Temp 97.8; Pulse Ox 100% ; Weight 54.43 kg; Height 5 ll1 ft. 10 in. (177.80 cm); Pain 7/10; 12:50 Pulse 76; Resp 16; Pulse Ox 100% on R/A; zb 13:33 BP 124 / 82; Pulse 20; Resp 16; Pulse Ox 100% on R/A; zb 14:45 BP 123 / 88; Pulse 88; Resp 16; Pulse Ox 100% on R/A; zb 12:45 Body Mass Index 17.22 (54.43 kg, 177.80 cm) ll1 MDM: 12:43 Patient medically screened. kb 14:55 Data reviewed: vital signs, nurses notes. Data reviewed: I have discussed the patient's kb presentation/case with the attending Emergency Department Physician;. Data interpreted: Pulse oximetry: on room air is 100 %. Interpretation: normal. Counseling: I had a detailed discussion with the patient and/or guardian regarding: the historical points, exam findings, and any diagnostic results supporting the discharge/admit diagnosis, lab results, radiology results, the need for outpatient follow up, a family practitioner, to return to the emergency department if symptoms worsen or persist or if there are any questions or concerns that arise at home. 08/02 12:55 Order name: Basic Metabolic Panel; Complete Time: 14:28 kb 08/02 12:55 Order name: CBC with Diff; Complete Time: 14:15 kb 08/02 12:55 Order name: LFT's; Complete Time: 14:28 kb 08/02 12:55 Order name: Magnesium; Complete Time: 14:28 kb 08/02 12:55 Order name: NT PRO-BNP; Complete Time: 14:28 kb 08/02 12:55 Order name: PT-INR; Complete Time: 14:15 kb 08/02 12:55 Order name: Troponin (emerg Dept Use Only); Complete Time: 14:28 kb 08/02 12:55 Order name: XRAY Chest (1 view); Complete Time: 13:49 kb 08/02 12:55 Order name: EKG; Complete Time: 12:56 kb 08/02 12:55 Order name: Cardiac monitoring; Complete Time: 14:02 kb 08/02 12:55 Order name: EKG - Nurse/Tech; Complete Time: 13:50 kb 08/02 12:55 Order name: IV Saline Lock; Complete Time: 13:50 kb 08/02 12:55 Order name: Labs collected and sent; Complete Time: 13:50 kb 08/02 12:55 Order name: O2 Per Protocol; Complete Time: 13:50 kb 08/02 12:55 Order name: O2 Sat Monitoring; Complete Time: 13:50 kb EC:56 Rate is 78 beats/min. Rhythm is regular. QRS [place] is Normal. VT interval is normal at kb 120 msec. QRS interval is normal at 84 msec. QT interval is normal at 366 msec. Administered Medications: No medications were administered Disposition: 08/02/20 14:31 Discharged to Home. Impression: Chest pain, unspecified. - Condition is Stable. - Discharge Instructions: Nonspecific Chest Pain. - Prescriptions for Diclofenac Sodium 75 mg Oral Tablet, Delayed Release (E.C.) - take 1 tablet by ORAL route 2 times per day As needed; 30 tablet. - Medication Reconciliation Form, Thank You Letter, Antibiotic Education, Prescription Opioid Use form. - Follow up: Emergency Department; When: As needed; Reason: Worsening of condition. Follow up: Private Physician; When: 2 - 3 days; Reason: Recheck today's complaints, Continuance of care, Re-evaluation by your physician. Addendum: 08/05/2020 11:33 Co-signature as Attending Physician, Geovany Vasquez MD I agree with the assessment and c mcghee plan of care. Signatures: Dispatcher [employer] EDCourtney Huang, CHILLER HAND-C CHILLER HAND-Geovany Collazo MD MD cha Lewis, Lynsay RN RN ll1 Angela Davis RN RN zb Corrections: (The following items were deleted from the chart) 08/02 14:46 14:31 08/02/2020 14:31 Discharged to Home. Impression: Chest pain, unspecified. zb Condition is Stable. Forms are Medication Reconciliation Form, Thank You Letter, Antibiotic Education, Prescription Opioid Use. Follow up: Emergency Department; When: As needed; Reason: Worsening of condition. Follow up: Private Physician; When: 2 - 3 days; Reason: Recheck today's complaints, Continuance of care, Re-evaluation by your physician. kb
--- NOTE | 2020-08-02 14:31 | ER ---
Nurse's Notes [facility] Name: Kris Taylor Age: 30 yrs Sex: Male : 1990 Arrival Date: 08/02/2020 Time: 12:38 Bed 25 Private MD: Diagnosis: Chest pain, unspecified Presentation: 08/02 12:45 Chief complaint: Patient states: L CP that radiates through to the back since last ll1 night. States certain movements hurt his chest more. No SOB or cough. Palpitations at times. Coronavirus screen: Client denies travel out of the [place] in the last 14 days. At this time, the client does not indicate any symptoms associated with coronavirus-19. Ebola Screen: Patient denies travel to an Ebola-affected area in the 21 days before illness onset. Initial Sepsis Screen: Does the patient meet any 2 criteria? No. Patient's initial sepsis screen is negative. Does the patient have a suspected source of infection? No. Patient's initial sepsis screen is negative. Risk Assessment: Do you want to hurt yourself or someone else? Patient reports no desire to harm self or others. Onset of symptoms was August 01, 2020. 12:45 Method Of Arrival: Ambulatory ll1 12:45 Acuity: ELSA 3 ll1 Historical: - Allergies: 12:47 PENICILLINS; ll1 - PMHx: 12:47 Anxiety; Asthma; Back pain; Chronic pain; mitral valve prolapse; ll1 - PSHx: 12:47 None; ll1 - Immunization history:: Flu vaccine is up to date. - Social history:: Smoking status: Patient denies any tobacco usage or history of. Screenin:47 Abuse screen: Denies threats or abuse. Nutritional screening: No deficits noted. zb Tuberculosis screening: No symptoms or risk factors identified. Fall Risk None identified. Assessment: 12:47 General: Appears in no apparent distress. Behavior is calm, cooperative, appropriate zb for age, Denies fever, feeling ill, fatigue, chills. Pain: Complains of pain in back and chest Pain does not radiate. Pain currently is 7 out of 10 on a pain scale. Quality of pain is described as dull, sharp, Pain began 1 day ago. Is continuous, Alleviated by nothing. Aggravated by increased activity, repositioning, weight bearing. Neuro: Level of Consciousness is awake, alert, obeys commands, Oriented to person, place, time, situation. Cardiovascular: Reports chest pain, Heart tones S1 S2 present Capillary refill < 3 seconds in bilateral fingers Patient's skin is warm and dry. Pulses are all present. Chest pain is described as mild, quality is sharp, is located in left anterior chest wall episodes are continuous. Respiratory: Airway is patent Trachea midline Respiratory effort is even, unlabored, Respiratory pattern is regular, symmetrical, Breath sounds are clear bilaterally. the patient has mild shortness of breath. GI: Abdomen is flat. Derm: No signs and/or symptoms reported regarding the dermatologic system. Musculoskeletal: Circulation, motion, and sensation intact. Range of motion: intact in all extremities. 13:00 Reassessment: Patient appears in no apparent distress at this time. Patient and/or zb family updated on plan of care and expected duration. Pain level reassessed. Patient is alert/active/playful, equal unlabored respirations, skin warm/dry/pink. 14:46 Reassessment: Patient appears in no apparent distress at this time. Patient and/or zb family updated on plan of care and expected duration. Pain level reassessed. Patient is alert/active/playful, equal unlabored respirations, skin warm/dry/pink. Vital Signs: 12:45 BP 129 / 87; Pulse 79; Resp 16; Temp 97.8; Pulse Ox 100% ; Weight 54.43 kg; Height 5 ll1 ft. 10 in. (177.80 cm); Pain 7/10; 12:50 Pulse 76; Resp 16; Pulse Ox 100% on R/A; zb 13:33 BP 124 / 82; Pulse 20; Resp 16; Pulse Ox 100% on R/A; zb 14:45 BP 123 / 88; Pulse 88; Resp 16; Pulse Ox 100% on R/A; zb 12:45 Body Mass Index 17.22 (54.43 kg, 177.80 cm) ll1 ED Course: 12:38 Patient arrived in ED. as 12:43 Courtney Rivera FNP-C is PHCP. kb 12:43 Geovany Vasquez MD is Attending Physician. kb 12:43 Angela Davis RN is Primary Nurse. zb 12:45 Arm band placed on Patient placed in an exam room, on a stretcher. ll1 12:46 Triage completed. ll1 12:50 Patient has correct armband on for positive identification. Fall risk band placed. zb Placed in gown. Bed in low position. 12:50 Patient maintains SpO2 saturation greater than 95% on room air. zb 13:14 XRAY Chest (1 view) In Process Unspecified. EDMS 13:49 Initial lab(s) drawn, by me, sent to lab. EKG done, by ED staff, reviewed by Courtney QUENE. Inserted saline lock: 20 gauge in left antecubital area, using aseptic technique. Blood collected. 14:44 No provider procedures requiring assistance completed. IV discontinued, intact, zb bleeding controlled, No redness/swelling at site. Pressure dressing applied. 14:45 equipment monitor phototypesetting on. Pulse ox on. NIBP on. zb Administered Medications: No medications were administered Outcome: 14:31 Discharge ordered by . kentrell 14:44 Discharged to home ambulatory. zb 14:44 Condition: stable 14:44 Discharge instructions given to patient, Instructed on discharge instructions, follow up and referral plans. medication usage, Demonstrated understanding of instructions, follow-up care, medications, Prescriptions given X 1. 14:46 Patient left the ED. georgette Signatures: Dispatcher [employer] EDMO Courtney Rivera FNP-C FNP-Dorinda Vicente Lynsay, RN RN ll1 Angela Davis RN RN georgette
[2020-08-02 15:20] VITALS: TEMP 97.8; O2SAT 100
[2020-08-02 15:26] VITALS: BP 123/88
--- NOTE | 2020-08-03 15:51 | EKG ---
Test Date: 2020-08-02 Test Time: 13:24:55 Kennel Manager Dog Track: ALEXA MEASUREMENT RESULTS: Intervals: Rate: 78 WI: 120 QRSD: 84 QT: 366 QTc: 417 [place]: P: 81 WI: 120 QRS: 93 T: 74 INTERPRETIVE STATEMENTS: Normal sinus rhythm Rightward axis Septal infarct, age undetermined Abnormal ECG Compared to ECG 07/07/2019 03:21:11 Right-axis deviation now present Incomplete right bundle-branch block no longer present Myocardial infarct finding still present Electronically Signed On 08-03-20 15:47:20 CDT by Jerome Cohn
== END 2020-08-02 14:46 | disposition home or self-care (01) ==
LOC: ER 12:37
DX: R07.89 Other chest pain (principal); Z88.0 Allergy status to penicillin
CPT/HCPCS: 36415; 71045; 80048; 80076; 83735; 83880; 84484; 85025; 85610; 93005; 99285

== ENCOUNTER 2020-09-04 19:01 | Emergency (ER) | payer OTHER ==
[2020-09-04 20:09] LABS: Absolute Lymphocytes (CBC) 2.7 K/uL (0.7-4.9); Lymphocytes % 34.5 % (15.3-44.8); MPV 7.7 fL (7.6-11.3); RBC Red Blood Cell Count 4.99 M/uL (4.33-5.43)
[2020-09-04 20:16] LABS: Protime INR 1.09
--- NOTE | 2020-09-04 20:16 | RAD REPORT ---
EXAM DESCRIPTION: RAD - Chest Single View - 09/04/2020 8:07 pm CLINICAL HISTORY: CHEST PAIN COMPARISON: August 02 single-view chest TECHNIQUE: AP portable chest image was obtained 09/04/2020 8:07 pm . FINDINGS: Lungs are clear. Heart and vasculature are normal. No measurable pleural effusion and no p neumothorax. No acute bony abnormality seen. No acute aortic findings suspected. IMPRESSION: No acute cardiopulmonary process. No significant change from comparison study.
[2020-09-04 20:44] LABS: ALT/SGPT 24 U/L (12-78); AST/SGOT 18 U/L (15-37); Albumin 4.7 g/dL (3.4-5.0); Alkaline Phosphatase 59 U/L (45-117); BUN Blood Urea Nitrogen 14 mg/dL (7-18); Bicarbonate 22 mmol/L (21-32); Bilirubin Direct 0.1 mg/dL (0-0.2); Bilirubin Total 0.6 mg/dL (0.2-1.0); Glucose Level 94 mg/dL (74-106); Magnesium 2.2 mg/dL (1.8-2.4); NT PRO-BNP 81 pg/mL (<125); Potassium 3.1 mmol/L (3.5-5.1); Protein, Total 8.6 g/dL (6.4-8.2); Sodium Level 137 mmol/L (136-145); Troponin (Emerg Dept Use Only) < 0.02 ng/mL (0.0-0.045)
[2020-09-04 21:51] LABS: Urine Blood Negative (Negative); Urine Glucose Negative (Negative); Urine Protein Negative (Negative); Urine pH 7.5 (5.0-7.0)
--- NOTE | 2020-09-04 21:51 | RAD REPORT ---
EXAM DESCRIPTION: CT - Chest For Pe Angio - 09/04/2020 9:32 pm CLINICAL HISTORY: CHEST PAIN COMPARISON: Head Brain Wo Cont dated 09/19/2018Chest For Pe Angio dated 05/24/2016 TECHNIQUE: Dynamically enhanced 3 mm thick images of the chest were obtained during administration o f approximately 150mL Isovue 370 IV contrast. Coronal and oblique MIP reconstruction images were gene rated and reviewed. Exam utilizes a protocol to evaluate the pulmonary arterial tree. All CT scans are performed using dose optimization technique as appropriate and may include automated exposure control or mA/KV adjustment according to patient size. FINDINGS: No pulmonary emboli are identified. The aorta as imaged shows no acute or suspicious finding. No pericardial thickening or effusion. No infiltrate or mass in the lung parenchyma. No pleural effusion or pleural thickening. No mediastinal or hilar suspicious masses. No chest wall masses or abnormal axillary lymphadenopathy. IMPRESSION: No pulmonary emboli identified. No other significant or suspicious findings.
[2020-09-04 22:09] LABS: Barbiturates NEGATIVE (NEGATIVE); Benzodiazepines NEGATIVE (NEGATIVE); Cocaine NEGATIVE (NEGATIVE); METHAMPHETAM NEGATIVE (NEGATIVE); Methadone NEGATIVE (NEGATIVE); Opiates NEGATIVE (NEGATIVE); Phencyclidine NEGATIVE (NEGATIVE); THC Cannibis NEGATIVE (NEGATIVE)
[2020-09-04] MEDS ORDERED: POTASSIUM CL SA 10 MEQ TAB PO ONE (22:18)
[2020-09-04] MEDS ORDERED: NA CHLORIDE 0.9% 1,000 ML ONE (22:18)
--- NOTE | 2020-09-04 23:44 | ER ---
Nurse's Notes [facility] Name: Kris Taylor Age: 30 yrs Sex: Male : 1990 Arrival Date: 09/04/2020 Time: 19:07 Bed Treatment Private MD: Diagnosis: Chest pain Presentation: 09/04 19:27 Chief complaint: Patient states: "Marian been jittery all morning and in the past hour I vg1 feel like I'm going to pass out; I feel chest pressure when I take a deep breath." Pt was tested for COVID yesterday at [facility] and results were Negavite. Coronavirus screen: Client denies travel out of the [place] in the last 14 days. Client presents with at least one sign or symptom that may indicate coronavirus-19. Standard/surgical mask placed on the client. Ebola Screen: Patient negative for fever greater than or equal to 101.5 degrees Fahrenheit, and additional compatible Ebola Virus Disease symptoms. Initial Sepsis Screen: Does the patient meet any 2 criteria? No. Patient's initial sepsis screen is negative. Does the patient have a suspected source of infection? No. Patient's initial sepsis screen is negative. Risk Assessment: Do you want to hurt yourself or someone else? Patient reports no desire to harm self or others. Onset of symptoms was September 04, 2020. 19:27 Method Of Arrival: Ambulatory 1 19:27 Acuity: ELSA 3 vg1 Triage Assessment: 19:28 General: Appears in no apparent distress. uncomfortable, Behavior is cooperative, vg1 anxious. Pain: Denies pain. Cardiovascular: Patient's skin is warm and dry. Historical: - Allergies: 19:28 PENICILLINS; vg1 - Home Meds: 19:28 tramadol 50 mg Oral tab 1 tab twice a day [Active]; vg1 - PMHx: 19:28 mitral valve prolapse; Chronic pain; Back pain; Asthma; Anxiety; vg1 - Immunization history:: Adult Immunizations up to date. - Social history:: Smoking status: Patient denies any tobacco usage or history of. Screenin:00 Abuse screen: Denies threats or abuse. Nutritional screening: No deficits noted. bb Tuberculosis screening: No symptoms or risk factors identified. Fall Risk None identified. Assessment: 21:00 General: Appears in no apparent distress. slender, Behavior is calm, cooperative. Pain: bb Complains of pain in chest Pain does not radiate. Pain began suddenly. Neuro: Level of Consciousness is awake, alert, obeys commands, Oriented to person, place, time, situation. Cardiovascular: Capillary refill < 3 seconds Patient's skin is warm and dry. Rhythm is sinus rhythm. Respiratory: Respiratory effort is even, unlabored, Respiratory pattern is regular. GI: No signs and/or symptoms were reported involving the gastrointestinal system. Derm: Skin is pink, warm \\T\\ dry. Musculoskeletal: Circulation, motion, and sensation intact. 22:00 Reassessment: Patient is alert, oriented x 3, equal unlabored respirations, skin bb warm/dry/pink. IV site intact, patent, no signs of erythema or edema noted, awaiting diagnostic results. 23:12 Reassessment: Patient is alert, oriented x 3, equal unlabored respirations, skin bb warm/dry/pink. repeat EKG and troponin completed and sent to lab. 23:55 Reassessment: Patient and/or family updated on plan of care and expected duration. Pain ea level reassessed. Patient is alert, oriented x 3, equal unlabored respirations, skin warm/dry/pink. Discharge instruction given to patient verbalized the understanding of instruction. Pt left ED ambulatory tolerating well. Vital Signs: 19:27 BP 138 / 101; Pulse 110; Resp 18; Temp 97.3; Pulse Ox 99% ; Weight 54.43 kg; Height 5 vg1 ft. 10 in. (177.80 cm); Pain 0/10; 23:13 BP 151 / 72; Pulse 87; Resp 16 S; Temp 97.5(TE); Pulse Ox 100% on R/A; bb 23:55 BP 153 / 87; Pulse 83; Resp 18; Pulse Ox 99% ; ea 19:27 Body Mass Index 17.22 (54.43 kg, 177.80 cm) vg1 ED Course: 19:07 Patient arrived in ED. bp1 19:28 Triage completed. vg1 19:28 Arm band placed on Patient placed in waiting room, Patient notified of wait time. vg1 19:34 EKG completed in triage. Results shown to MD. vg1 20:07 XRAY Chest (1 view) In Process Unspecified. EDMS 20:50 Uri Saucedo MD is Attending Physician. pkl 20:51 Pili Atkins, RN is Primary Nurse. bb 21:00 Patient has correct armband on for positive identification. Pulse ox on. NIBP on. bb 21:00 Patient maintains SpO2 saturation greater than 95% on room air. bb 21:31 CT Chest For PE Angio In Process Unspecified. EDMS 21:52 Urine collected: clean catch specimen, clear, UDS sent to lab. mw2 23:13 Repeat lab(s) drawn. by ED staff, sent to lab. EKG done, by ED staff, reviewed by Uri Saucedo MD. 23:54 No provider procedures requiring assistance completed. IV discontinued, intact, ea bleeding controlled, No redness/swelling at site. Pressure dressing applied. Administered Medications: 22:00 Drug: K-Dur (potassium chloride) 40 mEq Route: PO; don 23:56 Follow up: Response: No adverse reaction ea 22:00 Drug: NS 0.9% 1000 ml Route: IV; Rate: 125 ml/hr; Site: left forearm; don 23:56 Follow up: Response: No adverse reaction; IV Status: Completed infusion; IV Intake: ea 300ml Intake: 23:56 IV: 300ml; Total: 300ml. ea Outcome: 23:44 Discharge ordered by . pkl 23:54 Discharged to home ambulatory, with family. ea 23:54 Condition: stable 23:54 Discharge instructions given to patient, Instructed on discharge instructions, follow up and referral plans. Demonstrated understanding of instructions, follow-up care. 23:56 Patient left the ED. ea Signatures: Dispatcher [employer] EDOK Uri Saucedo MD MD pkPili Tate, RN RN Cici Isidro RN RN ea Arun Oliver mw2 Geena Botello RN RN vg1 Tasha Clements [facility] Corrections: (The following items were deleted from the chart) 19:29 19:27 Chief complaint: Patient states: "Marian been jittery all morning and in the past vg1 hour I feel like I'm going to pass out; I feel chest pressure when I take a deep breath." vg1
--- NOTE | 2020-09-04 23:44 | EDPHYS ---
Physician Documentation [facility] Name: Kris Taylor Age: 30 yrs Sex: Male : 1990 Arrival Date: 09/04/2020 Time: 19:07 Bed Treatment Private MD: ED Physician Uri Saucedo HPI: 09/04 21:11 This 30 yrs old Male presents to ER via Ambulatory with complaints of Chest pkl Pain, Jittery. 21:11 The patient or guardian reports chest pain that is located primarily in the substernal pkl area. The pain does not radiate. Associated signs and symptoms: Pertinent positives: feeling jittery and passing out. The chest pain is described as a pressure. The patient has not experienced similar symptoms in the past. Historical: - Allergies: 19:28 PENICILLINS; vg1 - Home Meds: 19:28 tramadol 50 mg Oral tab 1 tab twice a day [Active]; vg1 - PMHx: 19:28 mitral valve prolapse; Chronic pain; Back pain; Asthma; Anxiety; vg1 - Immunization history:: Adult Immunizations up to date. - Social history:: Smoking status: Patient denies any tobacco usage or history of. ROS: 21:11 Eyes: Negative for injury, pain, redness, and discharge, ENT: Negative for injury, pkl pain, and discharge, Neck: Negative for injury, pain, and swelling. 21:11 Cardiovascular: Positive for chest pain. 21:11 Respiratory: Negative for cough, shortness of breath. 21:11 Abdomen/GI: Negative for abdominal pain, nausea, vomiting, and diarrhea. 21:11 Back: Negative for acute changes. 21:11 : Negative for urinary symptoms. 21:11 MS/extremity: Negative for acute changes. 21:11 Skin: Negative for rash. 21:11 Neuro: Positive for near syncope. Exam: 21:11 Head/Face: Normocephalic, atraumatic. Eyes: Pupils equal round and reactive to light, pkl extra-ocular motions intact. Lids and lashes normal. Conjunctiva and sclera are non-icteric and not injected. Cornea within normal limits. Periorbital areas with no swelling, redness, or edema. ENT: Nares patent. No nasal discharge, no septal abnormalities noted. Tympanic membranes are normal and external auditory canals are clear. Oropharynx with no redness, swelling, or masses, exudates, or evidence of obstruction, uvula midline. Mucous membranes moist. Neck: Trachea midline, no thyromegaly or masses palpated, and no cervical lymphadenopathy. Supple, full range of motion without nuchal rigidity, or vertebral point tenderness. No Meningismus. Chest/axilla: Normal chest wall appearance and motion. Nontender with no deformity. No lesions are appreciated. 21:11 Cardiovascular: Rate: tachycardic, actual rate is 110 bpm, Rhythm: regular. 21:11 ECG was reviewed by the Attending Physician. 21:11 Respiratory: the patient does not display signs of respiratory distress, Respirations: normal, Breath sounds: are clear throughout. 21:11 Abdomen/GI: Bowel sounds: normal, Palpation: abdomen is soft and non-tender, in all quadrants. 21:11 Back: Exam negative for acute changes. 21:11 : Exam negative for acute changes. 21:11 Musculoskeletal/extremity: Exam is negative for acute changes. 21:11 Skin: Exam negative for rash. 21:11 Neuro: Orientation: is normal, Mentation: is normal, Cranial nerves: grossly normal, Cerebellar function: is grossly normal, Motor: is normal, Sensation: is normal, Gait: is steady. Vital Signs: 19:27 BP 138 / 101; Pulse 110; Resp 18; Temp 97.3; Pulse Ox 99% ; Weight 54.43 kg; Height 5 vg1 ft. 10 in. (177.80 cm); Pain 0/10; 23:13 BP 151 / 72; Pulse 87; Resp 16 S; Temp 97.5(TE); Pulse Ox 100% on R/A; bb 23:55 BP 153 / 87; Pulse 83; Resp 18; Pulse Ox 99% ; ea 19:27 Body Mass Index 17.22 (54.43 kg, 177.80 cm) vg1 MDM: 20:50 Patient medically screened. pkl 23:40 Data reviewed: vital signs, nurses notes, lab test result(s), EKG, radiologic studies, pkl CT scan, plain films. ED course: Patient feeling better. Discussed lab, EKG and imaging studies with patient. Patient said he has an appt. with his Data Analysis Assistant ( Dr. Ruiz ) on Monday ( 09/07/20 ). To return if necessary. Patient understood instructions. 09/04 19:32 Order name: Basic Metabolic Panel 1 09/04 19:32 Order name: CBC with Diff 1 09/04 19:32 Order name: LFT's; Complete Time: 21:03 vg1 09/04 19:32 Order name: Magnesium; Complete Time: 21:03 vg1 09/04 19:32 Order name: NT PRO-BNP; Complete Time: 21:03 vg1 09/04 19:32 Order name: PT-INR; Complete Time: 21: vg1 09/04 19:32 Order name: Troponin (emerg Dept Use Only); Complete Time: 21:03 vg1 09/04 19:33 Order name: Basic Metabolic Panel; Complete Time: 21:03 EDMS 09/04 19:33 Order name: CBC with Automated Diff; Complete Time: 21:03 EDMS 09/04 21:02 Order name: UDS; Complete Time: 22:47 pkl 09/04 21:02 Order name: TSH; Complete Time: 22:47 pkl 09/04 21:36 Order name: D-Dimer; Complete Time: 22:47 EDMS 09/04 19:32 Order name: XRAY Chest (1 view); Complete Time: 21:03 vg1 09/04 19:32 Order name: EKG; Complete Time: :33 vg1 09/04 19:32 Order name: EKG - Nurse/Tech; Complete Time: :33 vg1 09/04 19:32 Order name: IV Saline Lock; Complete Time: :33 vg1 09/04 19:32 Order name: Labs collected and sent; Complete Time: : vg1 09/04 19:32 Order name: O2 Per Protocol; Complete Time: : vg1 09/04 19:32 Order name: O2 Sat Monitoring; Complete Time: : vg1 09/04 21:17 Order name: CT Chest For PE Angio; Complete Time: 22:47 pkl 09/04 21:51 Order name: Urine Dipstick-Ancillary; Complete Time: 22:47 EDMS 09/04 21:59 Order name: Urine Dipstick-Ancillary (obtain specimen); Complete Time: 21:59 mw2 09/04 22:50 Order name: EKG; Complete Time: 22:51 pkl 09/04 22:50 Order name: Troponin (emerg Dept Use Only) pkl 09/04 22:51 Order name: Troponin (Emerg Dept Use Only); Complete Time: 23:40 EDMS Administered Medications: 22:00 Drug: K-Dur (potassium chloride) 40 mEq Route: PO; bb 23:56 Follow up: Response: No adverse reaction ea 22:00 Drug: NS 0.9% 1000 ml Route: IV; Rate: 125 ml/hr; Site: left forearm; bb 23:56 Follow up: Response: No adverse reaction; IV Status: Completed infusion; IV Intake: ea 300ml Disposition Summary: 09/04/20 23:44 Discharge Ordered Location: Home pkl Problem: new pkl Symptoms: have improved pkl Condition: Stable pkl Diagnosis - Chest pain pkl Followup: pkl - With: Private Physician - When: 2 - 3 days - Reason: Re-evaluation by your physician Forms: - Medication Reconciliation Form pkl - Thank You Letter pkl - Antibiotic Education pkl - Prescription Opioid Use pkl Signatures: Dispatcher [employer] EDMS Uri Saucedo MD MD pkl Pili Atkins, RN RN Arun Pena mw2 Geena Botello RN RN mo1 Cici Carrasquillo RN, ea Corrections: (The following items were deleted from the chart) 21:19 21:17 D-Dimer ordered. EDMS EDMS
[2020-09-05 00:32] VITALS: TEMP 97.5
[2020-09-05 00:35] VITALS: BP 153/87; O2SAT 99
--- NOTE | 2020-09-07 09:08 | EKG ---
Test Date: 2020-09-04 Test Time: 19:34:36 Management Services Technician: YASMIN MEASUREMENT RESULTS: Intervals: Rate: 99 DC: 132 QRSD: 92 QT: 348 QTc: 446 [place]: P: 86 DC: 132 QRS: 94 T: 74 INTERPRETIVE STATEMENTS: Normal sinus rhythm with sinus arrhythmia Right atrial enlargement Rightward axis Pulmonary disease pattern Incomplete right bundle branch block Septal infarct, age undetermined Abnormal ECG Compared to ECG 08/02/2020 13:24:55 Atrial abnormality now present Incomplete right bundle-branch block now present Myocardial infarct finding still present Electronically Signed On 09-07-20 09:04:16 CDT by Jerome Cohn
== END 2020-09-04 23:56 | disposition home or self-care (01) ==
LOC: ER 19:01
DX: R07.9 Chest pain, unspecified (principal); I34.1 Nonrheumatic mitral (valve) prolapse; J45.909 Unspecified asthma, uncomplicated; F41.9 Anxiety disorder, unspecified; G89.29 Other chronic pain
CPT/HCPCS: 96361; 93005 ×2; 85025; 80048; 36415; 83735; 85610; 85379; 80076; 84443; 81003; 84484 ×2; 83880; 80307; 71275; 71045; 96360; 99285; Q9967; J7030

== ENCOUNTER 2020-09-06 07:42 | Emergency (ER) | payer OTHER ==
--- NOTE | 2020-09-06 08:13 | ER ---
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 Same thing happened a couple days ago after taking Excedrin, had come here for eval. No fever or cough. Hands feel heavy. Coronavirus screen: Client denies travel out of the [place] in the last 14 days. At this time, the client does not indicate any symptoms associated with coronavirus-19. Ebola Screen: Patient denies travel to an Ebola-affected area in the 21 days before illness onset. Initial Sepsis Screen: Does the patient meet any 2 criteria? No. Patient's initial sepsis screen is negative. Does the patient have a suspected source of infection? No. Patient's initial sepsis screen is negative. Risk Assessment: Do you want to hurt yourself or someone else? Patient reports no desire to harm self or others. Onset of symptoms was September 06, 2020. 07:52 Method Of Arrival: Ambulatory ll1 07:52 Acuity: ELSA 4 ll1 Historical: - Allergies: 07:51 PENICILLINS; ll1 - PMHx: 07:51 Anxiety; Asthma; Back pain; Chronic pain; mitral valve prolapse; ll1 - PSHx: 07:51 None; ll1 - Immunization history:: Client reports having NOT received the Covid vaccine. Flu vaccine is up to date. - Social history:: Smoking status: Patient denies any tobacco usage or history of. - Family history:: not pertinent. - Hospitalizations: : No recent hospitalization is reported. Screenin:01 Abuse screen: Denies threats or abuse. Denies injuries from another. Nutritional ph screening: No deficits noted. Tuberculosis screening: No symptoms or risk factors identified. Fall Risk None identified. Assessment: 08:12 Reassessment: Patient appears in no apparent distress at this time. Patient and/or ph family updated on plan of care and expected duration. Pain level reassessed. Patient is alert, oriented x 3, equal unlabored respirations, skin warm/dry/pink. Dr Pierre at bedside to speak w/ pt, pt currently refusing CXR and EKG, states, " I just had that done a few days ago. I have an echo scheduled so I'll just do that.". General: Appears in no apparent distress. comfortable, slender, well groomed, Behavior is calm, cooperative, appropriate for age, Denies fever. Pain: Complains of pain in chest. Neuro: Level of Consciousness is awake, alert, obeys commands, Oriented to person, place, time, situation. Cardiovascular: Reports chest pain, shortness of breath, Capillary refill < 3 seconds in bilateral fingers Patient's skin is warm and dry. Respiratory: Reports shortness of breath at rest Airway is patent Respiratory effort is even, unlabored, Respiratory pattern is regular, symmetrical. GI: No signs and/or symptoms were reported involving the gastrointestinal system. Derm: Skin is intact, Skin is pink, warm \\T\\ dry. Musculoskeletal: Circulation, motion, and sensation intact. Range of motion: intact in all extremities. Vital Signs: 07:52 BP 163 / 104; Pulse 94; Resp 16; Temp 98.5; Pulse Ox 98% on R/A; ll1 07:55 Pulse Ox 98% on R/A; Weight 56.7 kg; Height 5 ft. 10 in. (177.80 cm); Pain 0/10; ll1 08:17 BP 144 / 107; Pulse 81; Resp 18; Temp 98.2; Pulse Ox 100% on R/A; ph 07:55 Body Mass Index 17.94 (56.70 kg, 177.80 cm) ll1 ED Course: 07:43 Patient arrived in ED. ds1 07:45 Jonny Pierre MD is Attending Physician. rn 07:51 Arm band placed on Patient placed in an exam room, on a stretcher. ll1 07:54 Triage completed. ll1 08:01 Patient has correct armband on for positive identification. Placed in gown. Bed in low ph position. Call light in reach. Side rails up X 1. Pulse ox on. NIBP on. 08:09 Donna Guerrero RN is Primary Nurse. ph 08:12 Chana Ruzi MD is Referral Physician. rn 08:16 No provider procedures requiring assistance completed. Patient did not have IV access ph during this emergency room visit. Administered Medications: No medications were administered Outcome: 08:13 Discharge ordered by . rn 08:17 Discharged to home ambulatory. ph 08:17 Condition: good 08:17 Discharge instructions given to patient, Instructed on discharge instructions, follow up and referral plans. Demonstrated understanding of instructions, follow-up care. 08:19 Patient left the ED. ph Signatures: Sushila Barton ds1 Jonny Pierre MD MD rn Hall, Patricia, RN RN ph Jennifer Tovar RN RN 1 Corrections: (The following items were deleted from the chart) 08:16 08:12 Pain: Denies pain. ph ph 08:16 08:12 Cardiovascular: Reports shortness of breath, Capillary refill < 3 seconds in ph bilateral fingers Patient's skin is warm and dry. ph
--- NOTE | 2020-09-06 08:13 | EDPHYS ---
Physician Documentation [facility] Name: Kris Taylor Age: 30 yrs Sex: Male : 1990 Arrival Date: 09/06/2020 Time: 07:43 Bed 5 Private MD: ED Physician Jonny Pierre HPI: 09/06 07:58 This 30 yrs old Male presents to ER via Ambulatory with complaints of rn Breathing Difficulty. 07:58 The patient has shortness of breath at rest. Onset: The symptoms/episode began/occurred rn this morning. Duration: The symptoms are continuous. The patient's shortness of breath is aggravated by nothing, is alleviated by nothing. Associated signs and symptoms: Pertinent positives: chest pain, numbness in extremities, Pertinent negatives: fever, hemoptysis, loss of consciousness. Severity of symptoms: At their worst the symptoms were mild in the emergency department the symptoms are unchanged. The patient has experienced similar episodes in the past. The patient has been recently seen at the [facility] Emergency Department. Patient reports woke up this morning with mild chest pain, took Excedrin, approximately 30 minutes later began with shortness of breath. States seen here a few days ago with the exact same problem after taking Excedrin, resolved on its own and states negative work-up in the emergency room. Patient states feels different from his anxiety. Patient with mitral valve prolapse but has recent echo that did not show any complications or need for surgery. No fever, no cough. Patient does not feel ill. Historical: - Allergies: 07:51 PENICILLINS; ll1 - PMHx: 07:51 Anxiety; Asthma; Back pain; Chronic pain; mitral valve prolapse; ll1 - PSHx: 07:51 None; ll1 - Immunization history:: Client reports having NOT received the Covid vaccine. Flu vaccine is up to date. - Social history:: Smoking status: Patient denies any tobacco usage or history of. - Family history:: not pertinent. - Hospitalizations: : No recent hospitalization is reported. ROS: 07:58 Constitutional: Negative for fever, chills, and weight loss, Eyes: Negative for injury, rn pain, redness, and discharge, ENT: Negative for injury, pain, and discharge, Neck: Negative for injury, pain, and swelling, Cardiovascular: Negative for palpitations, and edema, Respiratory: Negative for cough, wheezing Abdomen/GI: Negative for abdominal pain, nausea, vomiting, diarrhea, and constipation, Back: Negative for injury and pain, : Negative for injury, bleeding, discharge, and swelling, MS/Extremity: Negative for injury and deformity, Skin: Negative for injury, rash, and discoloration, Neuro: Negative for headache, weakness, numbness, tingling, and seizure. 07:58 All other systems are negative. rn Exam: 07:58 Constitutional: This is a well developed, well nourished patient who is awake, alert, rn and in no acute distress. Ambulatory to room without distress or requiring assistance. Head/Face: Normocephalic, atraumatic. Eyes: Periorbital areas with no swelling, redness, or edema. Cardiovascular: Regular rate and rhythm. No pulse deficits. Respiratory: No increased work of breathing, no retractions or nasal flaring. Abdomen/GI: Soft, non-tender Skin: Warm, dry MS/ Extremity: Pulses equal, no cyanosis. Neurovascular intact. Full, normal range of motion. Equal circumference. Neuro: Awake and alert, GCS 15 Vital Signs: 07:52 BP 163 / 104; Pulse 94; Resp 16; Temp 98.5; Pulse Ox 98% on R/A; ll1 07:55 Pulse Ox 98% on R/A; Weight 56.7 kg; Height 5 ft. 10 in. (177.80 cm); Pain 0/10; ll1 08:17 BP 144 / 107; Pulse 81; Resp 18; Temp 98.2; Pulse Ox 100% on R/A; ph 07:55 Body Mass Index 17.94 (56.70 kg, 177.80 cm) ll1 MDM: 07:45 Patient medically screened. rn 08:10 Refusal of service: The patient/guardian displays adequate decision making capability rn and despite a detailed discussion of alternatives, benefits, risks, and consequences refuses: all lab tests, all X-rays. 08:11 Differential diagnosis: Anxiety Reaction asthma, Myocardial Infarction Pneumothorax rn Psychogenic pulmonary edema, Anemia, mitral valve prolapse. Data reviewed: vital signs, nurses notes, old medical records. Counseling: I had a detailed discussion with the patient and/or guardian regarding: the historical points, exam findings, and any diagnostic results supporting the discharge/admit diagnosis, the need for outpatient follow up, to return to the emergency department if symptoms worsen or persist or if there are any questions or concerns that arise at home. ED course: Patient refuses repeat studies including blood/EKG/chest x-ray. States just had those studies done and does not feel the need to repeat. Understands risks of not having full reevaluation. Patient wants to go home. Does not want anything else done. States has echo scheduled first thing in the morning. Return precautions given and understood.. 09/06 07:52 Order name: EKG; Complete Time: 07:52 rn 09/06 07:52 Order name: Cardiac monitoring; Complete Time: 16:36 rn 09/06 07:52 Order name: O2 Sat Monitoring; Complete Time: 16:36 rn Administered Medications: No medications were administered Disposition Summary: 09/06/20 08:13 Discharge Ordered Location: Home rn Problem: new rn Symptoms: have improved rn Condition: Stable rn Diagnosis - Chest pain, unspecified rn - Dyspnea, unspecified rn Followup: rn - With: Chana Ruiz MD - When: Tomorrow - Reason: Recheck today's complaints, Re-evaluation by your physician Discharge Instructions: - Discharge Summary Sheet rn - Nonspecific Chest Pain, Adult rn - Mitral Valve Prolapse rn - Pain Without a Known Cause rn - Shortness of Breath, Adult rn Forms: - Medication Reconciliation Form rn - Thank You Letter rn - 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 rn eb
[2020-09-06 08:29] VITALS: BP 144/107; TEMP 98.2; O2SAT 100
== END 2020-09-06 08:19 | disposition home or self-care (01) ==
LOC: ER 07:42
DX: R07.9 Chest pain, unspecified (principal); Z88.0 Allergy status to penicillin
CPT/HCPCS: 99283

== ENCOUNTER 2021-07-17 06:39 | Emergency (ER) | payer OTHER ==
[2021-07-17] MEDS ORDERED: MORPHINE 4 MG/ML SYR ONE ×2 (07:47→14:11)
[2021-07-17] MEDS ORDERED: NA CHLORIDE 0.9% 1,000 ML ONE (07:47)
[2021-07-17] MEDS ORDERED: ONDANSETRON 4 MG/2 ML VIAL ONE (07:47)
[2021-07-17 07:52] LABS: Urine Blood Negative (Negative); Urine Glucose Negative (Negative); Urine Protein Negative (Negative); Urine Specific Gravity 1.025 (1.005-1.030)
[2021-07-17 07:54] LABS: Absolute Lymphocytes (CBC) 3.1 K/uL (0.7-4.9); Hematocrit 40.8 % (39.6-49.0); Lymphocytes % 44.9 % (15.3-44.8); MPV 7.5 fL (7.6-11.3)
[2021-07-17 08:15] LABS: Albumin 4.3 g/dL (3.4-5.0); Bilirubin Total 0.4 mg/dL (0.2-1.0); Potassium 3.6 mmol/L (3.5-5.1); Protein, Total 7.6 g/dL (6.4-8.2)
--- NOTE | 2021-07-17 08:50 | RAD REPORT ---
EXAM DESCRIPTION: CT - Abdomen Pelvis W Contrast - 07/17/2021 8:27 am CLINICAL HISTORY: RLQ abdominal pain COMPARISON: Abdomen Pelvis W Contrast dated 04/15/2018 TECHNIQUE: Biphasic, helical CT imaging of the abdomen and pelvis was performed following 100 ml non -ionic IV contrast. No oral contrast administered. All CT scans are performed using dose optimization technique as appropriate and may include automated exposure control or mA/KV adjustment according to patient size. FINDINGS: No suspicious findings in the lung bases. The liver, spleen, and pancreas show no suspicious findings. Gallbladder and biliary tree are also wi thout suspicious finding. Mild right-sided hydronephrosis and hydroureter present down to the distal ureter 2 cm from the UVJ. There is an obstructing 2 mm calcification present. Delayed function of the right kidney is noted. Th ere is a punctate 2 mm calcification in the lower pole calyx on the right. No left-sided calculi seen . No left-sided hydronephrosis. No pyelonephritis or acute parenchymal process. No bladder abnormalit ies. No adrenal abnormalities. No dilated bowel loops or bowel wall thickening. No free air, free fluid or inflammatory stranding. No hernia, mass or bulky lymphadenopathy. No suspicious bony findings. IMPRESSION: Mild right-sided hydronephrosis secondary to a 2 mm obstructing calcification 2 cm from the UVJ.
[2021-07-17 09:27] LABS: Blood Morphology Comment NOT SEEN (NOT SEEN); Platelet Estimate ADEQ
[2021-07-17] MEDS ORDERED: HYDROCODONE/APAP 10/325 TAB ONE (09:36)
[2021-07-17] MEDS ORDERED: CIPROFLOXACIN HCL 500 MG TAB ONE (09:36)
[2021-07-17] MEDS ORDERED: TAMSULOSIN 0.4 MG SR CAP ONE (09:36)
[2021-07-17] MEDS ORDERED: FENTANYL CITR 100 MCG/2 ML ONE (09:41)
[2021-07-17] MEDS ORDERED: KETOROLAC 30 MG/ML INJ ONE (10:48)
[2021-07-17] MEDS ORDERED: HYDROMORPHONE HCL 1 MG/ML INJ ONE (10:48)
--- NOTE | 2021-07-17 12:50 | ER ---
Nurse's Notes [facility] Name: Kris Taylor Age: 31 yrs Sex: Male : 1990 Arrival Date: 07/17/2021 Time: 06:41 Bed 19 Private MD: Diagnosis: Kidney Stone/ Calculus in urethra-2 cm from UVJ in right urethra Presentation: 07/17 07:03 Chief complaint: Patient states: "I have been having this really bad pain in my right jd3 lower abdomen for about a hour and a half. Coronavirus screen: At this time, the client does not indicate any symptoms associated with coronavirus-19. Ebola Screen: No symptoms or risks identified at this time. Initial Sepsis Screen: Does the patient meet any 2 criteria? No. Patient's initial sepsis screen is negative. Does the patient have a suspected source of infection? No. Patient's initial sepsis screen is negative. Risk Assessment: Do you want to hurt yourself or someone else? Patient reports no desire to harm self or others. Onset of symptoms was July 17, 2021. 07:03 Method Of Arrival: Ambulatory jd3 07:03 Acuity: ELSA 3 jd3 Triage Assessment: 07:10 General: Appears in no apparent distress. Behavior is calm, cooperative. mcghee Historical: - Allergies: 07:04 PENICILLINS; jd3 - Home Meds: 07:04 mirtazapine Oral [Active]; jd3 - PMHx: 07:04 Anxiety; Asthma; Back pain; Chronic pain; mitral valve prolapse; jd3 - Immunization history:: Adult Immunizations up to date, Client reports having NOT received the Covid vaccine. - Social history:: Smoking status: Patient denies any tobacco usage or history of. Screenin:09 Abuse screen: Denies threats or abuse. Denies injuries from another. Nutritional mcghee screening: No deficits noted. Tuberculosis screening: No symptoms or risk factors identified. Fall Risk None identified. Assessment: 07:09 Pain: Complains of pain in abdomen. GI: Bowel sounds present X 4 quads. Abd is soft and mcghee non tender X 4 quads. Reports nausea, Pain is 8 out of 10 on a pain scale. 14:24 Reassessment: PT TRANSPORTED BY EMS. bp Vital Signs: 07:04 BP 156 / 92; Pulse 94; Resp 18 S; Pulse Ox 100% ; Weight 58.97 kg (R); Height 5 ft. 10 jd3 in. (177.80 cm) (R); Pain 10/10; 10:46 BP 133 / 81; Pulse 93; Resp 19; Temp 98.3; Pulse Ox 98% on R/A; mcghee 07:04 Body Mass Index 18.65 (58.97 kg, 177.80 cm) jd3 ED Course: 06:41 Patient arrived in ED. bp1 07:02 Seng Contreras MD is Attending Physician. kdr 07:03 Triage completed. jd3 07:05 Arm band placed on. jd3 07:08 Lyla Pemberton, RN is Primary Nurse. mcghee 07:09 Patient has correct armband on for positive identification. Bed in low position. mchgee 07:09 No provider procedures requiring assistance completed. mcghee 07:50 Door closed. Noise minimized. Warm blanket given. mb7 07:50 Inserted saline lock: 20 gauge in left antecubital area, using aseptic technique. Blood mb7 collected. 08:29 CT Abd/Pelvis - IV Contrast Only In Process Unspecified. EDMS 12:50 initiated a transfer with Panfilo Farnsworth from the [facility]. eb 13:04 connected the Hospitalist corporate controller for [facility] with Dr. Contreras for patient eb transfer consultation. 13:20 connected the Urologist corporate controller for [facility] with Dr. Contreras for patient eb transfer consultation. 13:26 administrative approval given by Panfilo Farnsworth/ patient has been accepted to [facility] A 508/ Dr. Elizabeth Antonio has accepted the patient in transfer/ report to be called to the transfer center at [phone]. 14:31 Patient transferred, IV remains in place. mcghee Administered Medications: 07:54 Drug: morphine 4 mg Route: IVP; Infused Over: 4 mins; Site: left antecubital; mcghee 07:55 Follow up: Response: No adverse reaction mcghee 07:54 Drug: Zofran (Ondansetron) 4 mg Route: IVP; Site: left antecubital; mcghee 07:54 Follow up: Response: No adverse reaction mcghee 07:54 Drug: NS 0.9% 1000 ml Route: IV; Rate: 1 bolus; Site: left antecubital; mcghee 09:32 Drug: [place] (HYDROcodone-acetaminophen) 10 mg-325 mg 1 tabs Route: PO; mcghee 09:33 Follow up: Response: No adverse reaction mcghee 09:32 Drug: Cipro (ciprofloxacin) 500 mg Route: PO; mcghee 09:32 Follow up: Response: No adverse reaction mcghee 09:32 Drug: Flomax (tamsulosin) 0.4 mg Route: PO; mcghee 09:32 Follow up: Response: No adverse reaction mcghee 09:37 Drug: fentaNYL (PF) 50 mcg Route: IVP; Site: left antecubital; mcghee 09:37 Follow up: Response: No adverse reaction mcghee 10:47 Drug: Dilaudid (HYDROmorphone) 1 mg Route: IVP; Site: left antecubital; mcghee 10:47 Follow up: Response: No adverse reaction mcghee 10:47 Drug: Ketorolac 15 mg Route: IVP; Site: left antecubital; mcghee 10:47 Follow up: Response: No adverse reaction mcghee Medication: 07:09 VIS not applicable for this client. mcghee Outcome: 12:49 ER care complete, transfer ordered by . kdr 14:30 Transferred by ground EMS to [facility]. mcghee 14:30 Condition: stable 14:30 Instructed on the need for transfer. 14:31 Patient left the ED. mcghee Signatures: Dispatcher [employer] EDMS Seng Contreras MD MD kdr Davies, Jonathon, RN RN jd3 Peltier, Brian, RN RN bp Botello, Elizabeth eb [place], Brittany bp1 Breneman, Mary 7 Lyla Pemberton RN RN mcghee Corrections: (The following items were deleted from the chart) 12:54 10:46 BP 133 / 81; Pulse 93bpm; Resp 19bpm; Pulse Ox 98% RA; mcghee mcghee
--- NOTE | 2021-07-17 12:50 | EDPHYS ---
Physician Documentation [facility] Name: Kris Taylor Age: 31 yrs Sex: Male : 1990 Arrival Date: 07/17/2021 Time: 06:41 Bed 19 Private MD: ED Physician Seng Contreras HPI: 07/17 07:54 This 31 yrs old Male presents to ER via Ambulatory with complaints of Abdominal Pain. kdr 07:54 The patient presents with abdominal pain right lower quadrant. Onset: The kdr symptoms/episode began/occurred suddenly, 2 hour(s) ago. The symptoms do not radiate. Associated signs and symptoms: Pertinent positives: nausea, Pertinent negatives: diarrhea, dysuria, fever, headache, hematuria, palpitations, testicular pain, vomiting, vomiting blood. The symptoms are described as achy, sharp, stabbing, waxing/waning. Modifying factors: The symptoms are alleviated by nothing, the symptoms are aggravated by movement. Severity of pain: At its worst the pain was mild moderate in the emergency department the pain is unchanged. The patient has not experienced similar symptoms in the past. The patient has not recently seen a physician. Historical: - Allergies: 07:04 PENICILLINS; jd3 - Home Meds: 07:04 mirtazapine Oral [Active]; jd3 - PMHx: 07:04 Anxiety; Asthma; Back pain; Chronic pain; mitral valve prolapse; jd3 - Immunization history:: Adult Immunizations up to date, Client reports having NOT received the Covid vaccine. - Social history:: Smoking status: Patient denies any tobacco usage or history of. ROS: 07:54 Constitutional: Negative for fever, chills, and weight loss, Eyes: Negative for injury, kdr pain, redness, and discharge, Neck: Negative for injury, pain, and swelling, Cardiovascular: Negative for chest pain, palpitations, and edema, Respiratory: Negative for shortness of breath, cough, wheezing, and pleuritic chest pain, Back: Negative for injury and pain, : Negative for injury, bleeding, discharge, and swelling, MS/Extremity: Negative for injury and deformity, Skin: Negative for injury, rash, and discoloration, Neuro: Negative for headache, weakness, numbness, tingling, and seizure activity. Psych: Negative for depression, anxiety, suicide ideation, homicidal ideation, and hallucinations, Allergy/Immunology: Negative for hives, rash, and allergies, Endocrine: Negative for neck swelling, polydipsia, polyuria, polyphagia, and marked weight changes, Hematologic/Lymphatic: Negative for swollen nodes, abnormal bleeding, and unusual bruising. 07:54 Abdomen/GI: Positive for abdominal pain, nausea, diarrhea, Negative for abdominal distension, anorexia, dysphagia, hematemesis, black/tarry stool, rectal pain, rectal bleeding, bowel incontinence, flatulence. Exam: 07:54 Constitutional: This is a well developed, well nourished patient who is awake, alert, kdr and in mild to moderate distress. Head/Face: Normocephalic, atraumatic. Eyes: Pupils equal round and reactive to light, extra-ocular motions intact. Lids and lashes normal. Conjunctiva and sclera are non-icteric and not injected. Cornea within normal limits. Periorbital areas with no swelling, redness, or edema. Neck: Trachea midline, no thyromegaly or masses palpated, and no cervical lymphadenopathy. Supple, full range of motion without nuchal rigidity, or vertebral point tenderness. No Meningismus. Chest/axilla: Normal chest wall appearance and motion. Nontender with no deformity. No lesions are appreciated. Cardiovascular: Regular rate and rhythm with a normal S1 and S2. No gallops, murmurs, or rubs. Normal PMI, no JVD. No pulse deficits. Respiratory: Lungs have equal breath sounds bilaterally, clear to auscultation and percussion. No rales, rhonchi or wheezes noted. No increased work of breathing, no retractions or nasal flaring. Back: No spinal tenderness. No costovertebral tenderness. Full range of motion. Skin: Warm, dry with normal turgor. Normal color with no rashes, no lesions, and no evidence of cellulitis. 07:54 Abdomen/GI: Inspection: abdomen appears normal, Bowel sounds: normal, Palpation: soft, moderate abdominal tenderness, in the right lower quadrant, involuntary guarding. Vital Signs: 07:04 BP 156 / 92; Pulse 94; Resp 18 S; Pulse Ox 100% ; Weight 58.97 kg (R); Height 5 ft. 10 jd3 in. (177.80 cm) (R); Pain 10/10; 10:46 BP 133 / 81; Pulse 93; Resp 19; Temp 98.3; Pulse Ox 98% on R/A; mcghee 07:04 Body Mass Index 18.65 (58.97 kg, 177.80 cm) jd3 MDM: 07:54 Data reviewed: vital signs, nurses notes, lab test result(s), radiologic studies. kdr Counseling: I had a detailed discussion with the patient and/or guardian regarding: the historical points, exam findings, and any diagnostic results supporting the discharge/admit diagnosis, lab results, radiology results. 12:49 Patient medically screened. kdr 07/17 07:21 Order name: CBC with Diff; Complete Time: 10:27 kdr 07/17 07:21 Order name: CMP; Complete Time: 08:35 kdr 07/17 07:21 Order name: Lipase; Complete Time: 08:35 [facility] 07/17 07:53 Order name: Urine Dipstick-Ancillary; Complete Time: 08:35 EDMS 07/17 09:28 Order name: Manual Differential; Complete Time: 10:27 EDND 07/17 12:50 Order name: SARS-COV-2 RT PCR (Document "Date of Onset" if Symptomatic) 07/17 07:27 Order name: CT Abd/Pelvis - IV Contrast Only; Complete Time: 09:23 kdr 07/17 07:21 Order name: IV Saline Lock; Complete Time: 07:54 kdr 07/17 07:21 Order name: Labs collected and sent; Complete Time: 07:54 kdr Administered Medications: 07:54 Drug: morphine 4 mg Route: IVP; Infused Over: 4 mins; Site: left antecubital; mcghee 07:55 Follow up: Response: No adverse reaction mcghee 07:54 Drug: Zofran (Ondansetron) 4 mg Route: IVP; Site: left antecubital; mcghee 07:54 Follow up: Response: No adverse reaction mcghee 07:54 Drug: NS 0.9% 1000 ml Route: IV; Rate: 1 bolus; Site: left antecubital; mcghee 09:32 Drug: Clements (HYDROcodone-acetaminophen) 10 mg-325 mg 1 tabs Route: PO; mcghee 09:33 Follow up: Response: No adverse reaction mcghee 09:32 Drug: Cipro (ciprofloxacin) 500 mg Route: PO; mcghee 09:32 Follow up: Response: No adverse reaction mcghee 09:32 Drug: Flomax (tamsulosin) 0.4 mg Route: PO; mcghee 09:32 Follow up: Response: No adverse reaction mcghee 09:37 Drug: fentaNYL (PF) 50 mcg Route: IVP; Site: left antecubital; mcghee 09:37 Follow up: Response: No adverse reaction mcghee 10:47 Drug: Dilaudid (HYDROmorphone) 1 mg Route: IVP; Site: left antecubital; mcghee 10:47 Follow up: Response: No adverse reaction mcghee 10:47 Drug: Ketorolac 15 mg Route: IVP; Site: left antecubital; mcghee 10:47 Follow up: Response: No adverse reaction mcghee Disposition Summary: 07/17/21 12:49 Transfer Ordered Transfer Location: [facility] kdr Reason: Higher level of care kdr Condition: Fair kdr Problem: new kdr Symptoms: have improved kdr Accepting Physician: Urology(07/17/21 14:31) mcghee Diagnosis - Kidney Stone/ Calculus in urethra - 2 cm from UVJ in right urethra(07/17/21 12:50) kdr Forms: - Medication Reconciliation Form kdr - SBAR form kdr Signatures: Dispatcher [employer] EDMS Seng Contreras MD MD kdr Amilcar Connell RN RN jd3 Lyla Pemberton RN RN mcghee Corrections: (The following items were deleted from the chart) 12:50 12:49 Urology kdr kdr 12:50 12:49 Kidney Stone/ Calculus in urethra kdr kdr 14:31 12:50 Urology kdr mcghee
[2021-07-17 15:04] VITALS: BP 133/81; TEMP 98.3; O2SAT 98
== END 2021-07-17 14:31 | disposition short-term general hospital (02) ==
LOC: ER 06:39
DX: N20.0 Calculus of kidney (principal); N21.1 Calculus in urethra; G89.29 Other chronic pain; Z20.822 Contact with and (suspected) exposure to COVID-19; Z88.0 Allergy status to penicillin
CPT/HCPCS: 85025; 36415; 81003; 83690; 80053; 74177; 96375; 96374; 99285; U0003; Q9967; J3010; J1170; J7030; J2405

== ENCOUNTER 2022-10-16 20:06 | Emergency (ER) | payer OTHER ==
[2022-10-16 21:32] LABS: Specific Gravity 1.024 (1.005-1.030); Urine Bilirubin NEGATIVE (Negative); Urine Blood Negative (Negative); Urine Clarity Clear (Clear); Urine Color Light-Yellow (Yellow); Urine Glucose NEGATIVE (Negative); Urine Protein NEGATIVE (Negative); Urine Urobilinogen Normal (Normal); Urine pH 6.5 (5.0-7.0)
[2022-10-16 21:33] LABS: Hematocrit 40.9 % (39.6-49.0); Lymphocytes % 16.4 % (15.3-44.8); MCV 84.1 fL (80-100); MPV 7.5 fL (7.6-11.3); Platelets 230 thou/uL (152-406); RBC Red Blood Cell Count 4.87 M/uL (4.33-5.43)
[2022-10-16] MEDS ORDERED: MORPHINE 4 MG/ML SYR ONE (21:39)
[2022-10-16] MEDS ORDERED: ONDANSETRON 4 MG/2 ML VIAL ONE (21:39)
[2022-10-16] MEDS ORDERED: KETOROLAC 30 MG/ML INJ ONE ×2 (21:39→22:04)
[2022-10-16] MEDS ORDERED: TAMSULOSIN 0.4 MG SR CAP ONE (21:39)
[2022-10-16] MEDS ORDERED: NA CHLORIDE 0.9% 1,000 ML ONE (21:40)
[2022-10-16 21:53] LABS: Albumin 4.5 g/dL (3.4-5.0); Bilirubin Total 0.6 mg/dL (0.2-1.0); Potassium 3.8 mEq/L (3.5-5.1); Protein, Total 8.3 g/dL (6.4-8.2)
--- NOTE | 2022-10-16 22:40 | RAD REPORT ---
EXAM DESCRIPTION: CT - Abdomen Pelvis W Contrast - 10/16/2022 10:25 pm CLINICAL HISTORY: ABD PAIN COMPARISON: Abdomen Pelvis W Contrast dated 07/17/2021; Abdomen Pelvis W Contrast dated 04/15/2018 TECHNIQUE: Thin cut axial CT imaging of the abdomen and pelvis was performed following intravenous a dministration of 95 mL Isovue 300. Multiplanar reformats were generated and reviewed. All CT scans are performed using dose optimization technique as appropriate and may include automated exposure control or mA/KV adjustment according to patient size. FINDINGS: No suspicious findings in the lung bases. The liver, spleen, and pancreas show no suspicious findings. Gallbladder and biliary tree are also wi thout suspicious finding. Symmetric renal function is seen with no hydronephrosis or suspicious renal mass. 2-3 millimeter righ t superior renal pole calculus. Small cortical cysts, less than 1 centimeter, difficult to characteri ze. No perinephric or periureteric fat stranding to suggest a recently passed stone. No dilated bowel loops or bowel wall thickening. No free air, free fluid or inflammatory stranding. N o hernia, mass or bulky lymphadenopathy. The urinary bladder is mildly distended with a 2-3 millimete r calculus layering dependently at the base. No suspicious bony findings. IMPRESSION: 2-3 millimeter urinary bladder calculus, and a nonobstructing right upper renal pole 2-3 millimeter calculus. No hydroureteronephrosis. No other acute intra-abdominal process.
--- NOTE | 2022-10-16 23:06 | EDPHYS ---
Physician Documentation [facility] Name: Kris Taylor Age: 32 yrs Sex: Male : 1990 Arrival Date: 10/16/2022 Time: 20:06 Bed 6 Private MD: ED Physician Ye Gonzalez HPI: 10/16 20:15 This 32 yrs old Male presents to ER via Unassigned with complaints of sp4 Abdominal Pain, Groin Pain. 20:17 HPI - Allergies: PENICILLINS Home Meds: Mirtazapine Oral; tramadol 50 mg Oral tab 1 tab sp4 twice a day PMHx: Anxiety; Asthma; Back pain; Chronic pain; mitral valve prolapse;. 10/17 02:11 32-year-old male presents with acute right-sided flank pain starting at 3 PM today. sp4 Worsening over time. Patient has history of anxiety, asthma, back pain, chronic pain, mitral valve prolapse patient states he developed nausea as well without vomiting but most severe is the right flank pain with radiation into the right groin. Patient reports similar pain in the past associated with kidney stone.. Historical: - Allergies: 10/16 20:42 PENICILLINS; nj1 - PMHx: 20:42 Anxiety; Asthma; Back pain; Chronic pain; mitral valve prolapse; Kidney stones; nj1 - Immunization history:: Client reports having NOT received the Covid vaccine. - Social history:: Smoking status: Patient denies any tobacco usage or history of. - Family history:: not pertinent. ROS: 10/17 02:11 Constitutional: Negative for fever, chills, and weight loss, Abdomen/GI: Negative for sp4 abdominal pain, nausea, vomiting, diarrhea, and constipation, positive for right flank pain : Negative for injury, bleeding, discharge, and swelling, positive for right flank pain with radiation into the right groin All other systems are negative. Exam: 02:11 Constitutional: This is a well developed, well nourished patient who is awake, alert, sp4 uncomfortable appearing male, mild to moderate distress Head/Face: Normocephalic, atraumatic. Eyes: Pupils equal round and reactive to light, extra-ocular motions intact. Lids and lashes normal. Conjunctiva and sclera are not injected. Cornea within normal limits. Periorbital areas with no swelling, redness, or edema. ENT: Nares patent. No nasal discharge, no septal abnormalities noted. Tympanic membranes are normal and external auditory canals are clear. Oropharynx with no redness, swelling, or masses, exudates, or evidence of obstruction, uvula midline. Mucous membranes moist. Neck: Trachea midline, no thyromegaly or masses palpated, and no cervical lymphadenopathy. Supple, full range of motion without nuchal rigidity, or vertebral point tenderness. Chest/axilla: Normal chest wall appearance and motion. Nontender with no deformity. No lesions are appreciated. Cardiovascular: Regular rate and rhythm with a normal S1 and S2. No gallops, murmurs, or rubs. Normal PMI, no JVD. No pulse deficits. Respiratory: Lungs have equal breath sounds bilaterally, clear to auscultation and percussion. No rales, rhonchi or wheezes noted. No increased work of breathing, no retractions or nasal flaring. Abdomen/GI: Soft, non-tender, with normal bowel sounds. No distension or tympany. No guarding or rebound. No evidence of tenderness throughout. Back: No spinal tenderness. No costovertebral tenderness. Male : Normal genitalia with no discharge or lesions. Skin: Warm, dry with normal turgor. Normal color with no rashes, no lesions, and no evidence of cellulitis. MS/ Extremity: Pulses equal, no cyanosis. Neurovascular intact. Full, normal range of motion. Neuro: Awake and alert, GCS 15, oriented to person, place, time, and situation. Cranial nerves II-XII grossly intact. Motor strength 5/5 in all extremities. Sensory grossly intact. Psych: Awake, alert, with orientation to person, place and time. Behavior, mood, and affect are within normal limits Vital Signs: 10/16 20:41 BP 145 / 102; Pulse 94; Resp 18; Temp 98.4(O); Pulse Ox 100% ; Weight 58.97 kg; Height nj1 5 ft. 10 in. ; Pain 10/10; 21:58 BP 151 / 106; Pulse 72; Resp 17; Pulse Ox 100% ; rv 23:00 BP 124 / 93; Pulse 78; Resp 17; Temp 98; Pulse Ox 100% on R/A; rv 20:41 Body Mass Index 18.65 (58.97 kg, 177.8 cm) nj1 20:41 Pain Scale: Adult nj1 [place] Coma Score: 23:25 Eye Response: spontaneous(4). Motor Response: obeys commands(6). Verbal Response: rv oriented(5). Total: 15. MDM: 20:18 Patient medically screened. sp4 22:56 ED course: CT - EXAM DESCRIPTION: CT - Abdomen Pelvis W Contrast - 10/16/2022 10:25 pm sp4 CLINICAL HISTORY: ABD PAIN COMPARISON: Abdomen Pelvis W Contrast dated 07/17/2021; Abdomen Pelvis W Contrast dated 04/15/2018 TECHNIQUE: Thin cut axial CT imaging of the abdomen and pelvis was performed following intravenous administration of 95 mL Isovue 300. Multiplanar reformats were generated and reviewed. All CT scans are performed using dose optimization technique as appropriate and may include automated exposure control or mA/KV adjustment according to patient size. FINDINGS: No suspicious findings in the lung bases. The liver, spleen, and pancreas show no suspicious findings. Gallbladder and biliary tree are also without suspicious finding. Symmetric renal function is seen with no hydronephrosis or suspicious renal mass. 2-3 millimeter right superior renal pole calculus. Small cortical cysts, less than 1 centimeter, difficult to characterize. No perinephric or periureteric fat stranding to suggest a recently passed stone. No dilated bowel loops or bowel wall thickening. No free air, free fluid or inflammatory stranding. No hernia, mass or bulky lymphadenopathy. The urinary bladder is mildly distended with a 2-3 millimeter calculus layering dependently at the base. No suspicious bony findings. IMPRESSION: 2-3 millimeter urinary bladder calculus, and a nonobstructing right upper renal pole 2-3 millimeter calculus. No hydroureteronephrosis. No other acute intra-abdominal process. Signed By: Alli Preciado. 22:59 Differential Diagnosis altered mental status, sepsis, flu, Renal stone. Data reviewed: sp4 vital signs, nurses notes, lab test result(s), radiologic studies, CT scan. 23:00 ED course: Patient's symptoms resolved. Patient has signed that 2 to 3 mm kidney stone sp4 dropped into urinary bladder. Will prescribe as needed Toradol and Phenergan in case pain recurs. We will advised to see urologist on outpatient basis. Stable for discharge home. 10/17 02:11 ED course: Patient has improved after pain medicines. CAT scan revealed that the kidney sp4 stone has now lodged in the right urinary bladder. We expect pain will improve since kidney stone is in the bladder. . 10/16 20:17 Order name: CBC with Diff; Complete Time: 22:56 sp4 10/16 20:17 Order name: CMP; Complete Time: 22:56 sp4 10/16 20:17 Order name: Lipase; Complete Time: 22:56 sp4 10/16 20:17 Order name: Urinalysis w/ reflexes; Complete Time: 22:56 sp4 10/16 20:26 Order name: CT Abd/Pelvis - IV Contrast Only; Complete Time: 22:56 sp4 10/16 20:17 Order name: IV Saline Lock; Complete Time: 21:17 sp4 10/16 20:17 Order name: Labs collected and sent; Complete Time: 21:17 sp4 Administered Medications: 10/16 20:26 Drug: Ondansetron IVP 4 mg Route: IVP; Site: right forearm; rv 23:23 Follow up: Response: No adverse reaction rv 21:42 Drug: morphine IVP or IV 4 mg Route: IVP; Infused Over: 4 mins; Site: right forearm; rv 23:23 Follow up: Response: No adverse reaction rv 21:42 Drug: NS 0.9% IV 1000 ml Route: IV; Rate: 1 bolus; Site: right forearm; rv 23:23 Follow up: IV Status: Completed infusion; IV Intake: 1000ml rv 21:54 Drug: Ketorolac IVP 60 mg Route: IVP; Site: right forearm; rv 23:23 Follow up: Response: No adverse reaction rv 23:15 Drug: Flomax PO 0.4 mg Route: PO; rv 23:23 Follow up: Response: Medication administered at discharge. rv 23:21 Not Given (Duplicate Order): Ondansetron IVP 8 mg IVP once; over 2 minutes rv Disposition Summary: 10/16/22 23:06 Discharge Ordered Location: Home sp4 Problem: new sp4 Symptoms: have improved sp4 Condition: Stable sp4 Diagnosis - Urinary bladder calculus, Right flank pain, Right renal colic , Right renal sp4 calculus Followup: sp4 - With: Javier Mart MD - When: 10 - 14 days - Reason: Recheck today's complaints Discharge Instructions: - Discharge Summary Sheet sp4 - Renal Colic, [id number] sp4 Forms: - Patient Portal Instructions sp4 Prescriptions: - ketorolac 10 mg Oral tablet - take 1 tablet by ORAL route every 8 hours for 3 days PRN pain; 30 tablet; sp4 Refills: 0, Product Selection Permitted - promethazine 25 mg Oral Tablet - take 1 tablet by ORAL route every 8 hours As needed PRN nausea; 30 tablet; sp4 Refills: 0, Product Selection Permitted Signatures: Dispatcher [employer] Jason Lang, RN RN Ye Hansen MD MD sp4 Eli Morgan RN RN nj1
--- NOTE | 2022-10-16 23:06 | ER ---
Nurse's Notes [facility] Name: Kris Taylor Age: 32 yrs Sex: Male : 1990 Arrival Date: 10/16/2022 Time: 20:06 Bed 6 Private MD: Diagnosis: Urinary bladder calculus, Right flank pain, Right renal colic , Right renal calculus Presentation: 10/16 20:41 Chief complaint: Patient states: Right flank pain since 3pm today, getting worse. Has nj1 had kidney stones in the past, believes that's what is going on. Coronavirus screen: Vaccine status: Patient reports being unvaccinated. Ebola Screen: Patient denies travel to an Ebola-affected area in the 21 days before illness onset. Initial Sepsis Screen: Does the patient meet any 2 criteria? HR > 90 bpm. No. Patient's initial sepsis screen is negative. Does the patient have a suspected source of infection? No. Patient's initial sepsis screen is negative. Risk Assessment: Do you want to hurt yourself or someone else? Patient reports no desire to harm self or others. Onset of symptoms was October 16, 2022 at 15:00. 20:41 Method Of Arrival: Ambulatory [facility] 20:41 Acuity: ELSA 3 nj1 Historical: - Allergies: 20:42 PENICILLINS; nj1 - PMHx: 20:42 Anxiety; Asthma; Back pain; Chronic pain; mitral valve prolapse; Kidney stones; nj1 - Immunization history:: Client reports having NOT received the Covid vaccine. - Social history:: Smoking status: Patient denies any tobacco usage or history of. - Family history:: not pertinent. Screenin:41 [facility] ED Fall Risk Assessment (Adult) History of falling in the last 3 months, rv including since admission No falls in past 3 months (0 pts) Score/Fall Risk Level 0 - 2 = Low Risk Oriented to surroundings, Maintained a safe environment, Educated pt \T\ family on fall prevention, incl call for assistance when getting out of bed, Assessed \T\ reinforced patient's understanding of fall precautions, Provided non-skid footwear, Hourly rounding (assess needs \T\ fall precautionary measures) done, Used ambulatory aids as needed (educated on \T\ assisted with), Used gait belt as appropriate. Abuse screen: Denies threats or abuse. Denies injuries from another. Nutritional screening: No deficits noted. Tuberculosis screening: No symptoms or risk factors identified. Assessment: 21:40 General: Appears in no apparent distress. Behavior is calm, cooperative. Pain: rv Complains of pain in right lower quadrant Pain radiates to RIGHT FLANK. Neuro: Level of Consciousness is awake, alert, obeys commands, Oriented to person, place, time, situation. Cardiovascular: Capillary refill < 3 seconds Patient's skin is warm and dry. Respiratory: Airway is patent Respiratory effort is even, unlabored. GI: Bowel sounds present X 4 quads. Abd is soft X 4 quads Abdomen is tender to palpation in right lower quadrant. : No signs and/or symptoms were reported regarding the genitourinary system. Vital Signs: 20:41 BP 145 / 102; Pulse 94; Resp 18; Temp 98.4(O); Pulse Ox 100% ; Weight 58.97 kg; Height nj1 5 ft. 10 in. ; Pain 10/10; 21:58 BP 151 / 106; Pulse 72; Resp 17; Pulse Ox 100% ; rv 23:00 BP 124 / 93; Pulse 78; Resp 17; Temp 98; Pulse Ox 100% on R/A; rv 20:41 Body Mass Index 18.65 (58.97 kg, 177.8 cm) nj1 20:41 Pain Scale: Adult nj1 [place] Coma Score: 23:25 Eye Response: spontaneous(4). Motor Response: obeys commands(6). Verbal Response: rv oriented(5). Total: 15. ED Course: 20:13 Patient arrived in ED. mr 20:15 Ye Gonzalez MD is Attending Physician. sp4 20:42 Triage completed. nj1 20:43 Arm band placed on right wrist. nj1 21:17 Jason Mccord RN is Primary Nurse. rv 21:40 Inserted saline lock: 20 gauge in right forearm, using aseptic technique. Blood rv collected. 21:42 Patient has correct armband on for positive identification. Placed in gown. Bed in low rv position. Call light in reach. Side rails up X 1. Client placed on continuous cardiac and pulse oximetry monitoring. NIBP monitoring applied. 21:42 Provided Education on: KIDNEY STONES. rv 21:42 No provider procedures requiring assistance completed. rv 22:27 CT Abd/Pelvis - IV Contrast Only In Process Unspecified. EDMS 23:05 Javeir Mart MD is Referral Physician. sp4 23:26 IV discontinued, intact, bleeding controlled, No redness/swelling at site. Pressure rv dressing applied. Administered Medications: 20:26 Drug: Ondansetron IVP 4 mg Route: IVP; Site: right forearm; rv 23:23 Follow up: Response: No adverse reaction rv 21:42 Drug: morphine IVP or IV 4 mg Route: IVP; Infused Over: 4 mins; Site: right forearm; rv 23:23 Follow up: Response: No adverse reaction rv 21:42 Drug: NS 0.9% IV 1000 ml Route: IV; Rate: 1 bolus; Site: right forearm; rv 23:23 Follow up: IV Status: Completed infusion; IV Intake: 1000ml rv 21:54 Drug: Ketorolac IVP 60 mg Route: IVP; Site: right forearm; rv 23:23 Follow up: Response: No adverse reaction rv 23:15 Drug: Flomax PO 0.4 mg Route: PO; rv 23:23 Follow up: Response: Medication administered at discharge. rv 23:21 Not Given (Duplicate Order): Ondansetron IVP 8 mg IVP once; over 2 minutes rv Medication: 21:41 VIS not applicable for this client. rv Intake: 23:23 IV: 1000ml; Total: 1000ml. rv Outcome: 23:06 Discharge ordered by . sp4 23:25 Discharged to home ambulatory. rv 23:25 Condition: improved 23:25 Discharge instructions given to patient, Instructed on discharge instructions, follow up and referral plans. medication usage, Demonstrated understanding of instructions, follow-up care, medications, Prescriptions given X 2. 23:26 Patient left the ED. rv Signatures: Dispatcher [employer] EDIL Megha ArandaJason RN RN rv Ye Gonzalez MD MD sp4 Eli Morgan RN RN nj1
[2022-10-17 01:26] VITALS: O2SAT 100
[2022-10-17 01:29] VITALS: BP 124/93; TEMP 98
== END 2022-10-16 23:26 | disposition home or self-care (01) ==
LOC: ER 20:06
DX: N21.0 Calculus in bladder (principal); N20.0 Calculus of kidney; N23 Unspecified renal colic; F41.9 Anxiety disorder, unspecified; J45.909 Unspecified asthma, uncomplicated; G89.29 Other chronic pain; I34.1 Nonrheumatic mitral (valve) prolapse; Z88.0 Allergy status to penicillin
CPT/HCPCS: 96361; 85025; 36415; 81003; 83690; 80053; 74177; 96375; 96374; 99284; Q9967; J2405; J7030

== ENCOUNTER 2022-11-26 19:53 | Emergency (ER) | payer OTHER ==
[2022-11-26] MEDS ORDERED: METOCLOPRAMIDE 10 MG/2mL INJ ONE (20:38)
[2022-11-26] MEDS ORDERED: NA CHLORIDE 0.9% 1,000 ML ONE (20:38)
[2022-11-26] MEDS ORDERED: KETOROLAC 30 MG/ML INJ ONE (20:38)
[2022-11-26] MEDS ORDERED: DIPHENHYDRAMINE 50 MG/ML VIAL ONE (20:38)
--- NOTE | 2022-11-26 21:14 | ER ---
Nurse's Notes [facility] Name: Kris Taylor Age: 32 yrs Sex: Male : 1990 Arrival Date: 11/26/2022 Time: 19:53 Bed 9 Private MD: Diagnosis: Headache;Influenza;Elevated blood-pressure reading, without diagnosis of hypertension Presentation: 11/26 20:02 Chief complaint: Patient states: he tested positive for the flu approx 4 days ago, and ap3 has since had a headache that is not getting any better. patient states that he took 800mg ibuprofen at approx 1500 today of which he reports did not help his pain. patient currently reports his pain to be an 8/10 on the pain scale. Coronavirus screen: At this time, the client does not indicate any symptoms associated with coronavirus-19. Ebola Screen: No symptoms or risks identified at this time. Initial Sepsis Screen: Does the patient meet any 2 criteria? No. Patient's initial sepsis screen is negative. Does the patient have a suspected source of infection? No. Patient's initial sepsis screen is negative. Risk Assessment: Do you want to hurt yourself or someone else? Patient reports no desire to harm self or others. Onset of symptoms was November 22, 2022. 20:02 Method Of Arrival: Ambulatory ap3 20:02 Acuity: ELSA 4 ap3 Triage Assessment: 20:06 Headache History: The patient has had previous headaches and this one is similar to ap3 previous episodes. General: Appears in no apparent distress. Behavior is calm, cooperative, appropriate for age. Pain: Complains of pain in head Pain currently is 8 out of 10 on a pain scale. Pain began 2-3 days ago. Neuro: Level of Consciousness is awake, alert, obeys commands, Oriented to person, place, time, situation. Cardiovascular: Patient's skin is warm and dry. Respiratory: Airway is patent Respiratory effort is even, unlabored, Respiratory pattern is regular, symmetrical. 21:41 Pain: Also complains of nausea. me1 Historical: - Allergies: 20:06 PENICILLINS; ap3 - PMHx: 20:06 Anxiety; Asthma; Asthma; Back pain; Chronic pain; Kidney stones; mitral valve prolapse; ap3 - Immunization history:: Client reports having NOT received the Covid vaccine. Flu vaccine is up to date. - Social history:: Smoking status: Patient denies any tobacco usage or history of. Screenin:07 Abuse screen: Denies threats or abuse. Nutritional screening: No deficits noted. ap3 Tuberculosis screening: No symptoms or risk factors identified. 20:44 [facility] ED Fall Risk Assessment (Adult) History of falling in the last 3 months, me1 including since admission No falls in past 3 months (0 pts) Confusion or Disorientation No (0 pts) Intoxicated or Sedated No (0 pts) Impaired Gait No (0 pts) Mobility Assist Device Used No (0 pt) Altered Elimination No (0 pt) Score/Fall Risk Level 0 - 2 = Low Risk Maintained a safe environment, Provided non-skid footwear, Hourly rounding (assess needs \T\ fall precautionary measures) done. Assessment: 20:44 General: Appears uncomfortable, well groomed, well developed, well nourished, Behavior me1 is calm, cooperative, appropriate for age, Reports tested positive for flu about 4 days ago and has a headache that doesn't improve with ibuprofen or tylenol. Pain: Complains of pain in head Pain does not radiate. Pain currently is 8 out of 10 on a pain scale. Quality of pain is described as aching, Pain began 2-3 days ago. Is continuous. Neuro: Level of Consciousness is awake, alert, obeys commands, Oriented to person, place, time, situation, Appropriate for age. Cardiovascular: Capillary refill < 3 seconds Patient's skin is warm and dry. Respiratory: Airway is patent Respiratory effort is even, unlabored, Respiratory pattern is regular, symmetrical, Parent/caregiver reports the patient having some congestion with cough from flu that is improving. Vital Signs: 20:02 BP 132 / 97; Pulse 80; Resp 17; Temp 97.8; Pulse Ox 100% ; Weight 58.97 kg; Pain 8/10; ap3 21:41 BP 133 / 87; Pulse 84; Resp 16; Temp 98.7(O); Pulse Ox 100% on R/A; Pain 4/10; me1 20:02 Pain Scale: Adult ap3 21:41 Pain Scale: Adult me1 ED Course: 19:55 Patient arrived in ED. mr 20:06 Triage completed. ap3 20:07 Arm band placed on right wrist. ap3 20:10 Tl Cruz DO is Attending Physician. ms3 20:15 Halina Guerrero, RN is Primary Nurse. 3 20:37 Inserted saline lock: 20 gauge in right antecubital area, using aseptic technique. me1 20:44 Patient has correct armband on for positive identification. Bed in low position. Call me1 light in reach. Side rails up X2. Provided Education on: POC. Verbalized understanding. . 20:44 No provider procedures requiring assistance completed. me1 21:42 IV discontinued, intact, bleeding controlled, No redness/swelling at site. Pressure me1 dressing applied. Administered Medications: 20:37 Drug: metoCLOPramide IVP 10 mg IVP once; over 1 to 2 minutes Route: IVP; Site: right me1 antecubital; 21:40 Follow up: Response: No adverse reaction; Pain is decreased me1 20:37 Drug: diphenhydrAMINE IVP 25 mg IVP once Route: IVP; Site: right antecubital; me1 21:40 Follow up: Response: No adverse reaction; Pain is decreased me1 20:37 Drug: Ketorolac IVP 10 mg 10 mg IVP once Route: IVP; Site: right antecubital; me1 21:41 Follow up: Response: No adverse reaction; Pain is decreased me1 20:37 Drug: NS 0.9% IV 1000 ml IV at 1 bolus Per protocol; 1000 mL bolus Route: IV; Rate: 1 me1 bolus; Site: right antecubital; 21:41 Follow up: IV Status: Completed infusion; IV Intake: 1000ml me1 Medication: 20:44 VIS not applicable for this client. me1 Intake: 21:41 IV: 1000ml; Total: 1000ml. me1 Outcome: 21:13 Discharge ordered by MD. ms3 21:42 Discharged to home ambulatory, me1 21:42 Condition: stable 21:42 Discharge instructions given to patient, Instructed on discharge instructions, follow up and referral plans. Demonstrated understanding of instructions, follow-up care, 21:42 Patient left the ED. me1 Signatures: Megha Aranda, [place] Delarosa mr BrandynashishRosa, RN RN ap3 Tl Cruz DO DO ms3 Halina Guerrero, RN RN 3 Anastasia Blackwood RN RN me1
--- NOTE | 2022-11-26 21:14 | EDPHYS ---
Physician Documentation [facility] Name: Kris Taylor Age: 32 yrs Sex: Male : 1990 Arrival Date: 11/26/2022 Time: 19:53 Bed 9 Private MD: ED Physician Tl Cruz HPI: 11/26 21:13 This 32 yrs old Male presents to ER via Ambulatory with complaints of Headache. ms3 21:13 32-year-old male with past medical history of anxiety, asthma, back pain, kidney ms3 stones, mitral valve prolapse presents to the emergency department for headache. Patient states he was diagnosed with flu 4 days prior to arrival. Patient states he has not been feeling better and currently has a headache that is getting worse. Patient states the pain is from his nose to his forehead. Patient rates the pain an 8/10 and denies alleviating or inciting factors. Patient states he took ibuprofen 5 hours prior to arrival without relief. Historical: - Allergies: 20:06 PENICILLINS; ap3 - PMHx: 20:06 Anxiety; Asthma; Asthma; Back pain; Chronic pain; Kidney stones; mitral valve prolapse; ap3 - Immunization history:: Client reports having NOT received the Covid vaccine. Flu vaccine is up to date. - Social history:: Smoking status: Patient denies any tobacco usage or history of. ROS: 21:13 Constitutional: Negative for fever, and chills. Neck: Negative for injury, pain, and ms3 swelling, Cardiovascular: Negative for chest pain, and palpitations. Abdomen/GI: Negative for abdominal pain, nausea, vomiting, diarrhea, and constipation, MS/Extremity: Negative for injury and deformity, 21:13 Respiratory: Positive for cough, 21:13 Neuro: Positive for headache, Exam: 21:13 Constitutional: This is a well developed, well nourished patient who is awake, alert, ms3 and in no acute distress. Head/Face: Normocephalic, atraumatic. Neck: Trachea midline, no cervical lymphadenopathy. Supple, full range of motion without nuchal rigidity, or vertebral point tenderness. No Meningismus. Chest/axilla: Normal chest wall appearance and motion. Nontender with no deformity. Cardiovascular: Regular rate and rhythm with a normal S1 and S2. No gallops, murmurs, or rubs. Normal PMI, no JVD. No pulse deficits. Respiratory: Lungs have equal breath sounds bilaterally, clear to auscultation and percussion. No rales, rhonchi or wheezes noted. No increased work of breathing, no retractions or nasal flaring. Abdomen/GI: Soft, non-tender, with normal bowel sounds. No distension or tympany. No guarding or rebound. No evidence of tenderness throughout. Skin: Warm, dry with normal turgor. Normal color with no rashes, no lesions, and no evidence of cellulitis. Neuro: Awake and alert, GCS 15, oriented to person, place, time, and situation. Cranial nerves II-XII grossly intact. Motor strength 5/5 in all extremities. Sensory grossly intact. Cerebellar exam normal. Normal gait. Vital Signs: 20:02 BP 132 / 97; Pulse 80; Resp 17; Temp 97.8; Pulse Ox 100% ; Weight 58.97 kg; Pain 8/10; ap3 21:41 BP 133 / 87; Pulse 84; Resp 16; Temp 98.7(O); Pulse Ox 100% on R/A; Pain 4/10; me1 20:02 Pain Scale: Adult ap3 21:41 Pain Scale: Adult me1 MDM: 20:10 Patient medically screened. ms3 21:13 Differential diagnosis: Flu versus headache versus dehydration. Data reviewed: vital ms3 signs, nurses notes, and as a result, I will discharge patient. I considered the following discharge prescriptions or medication management in the emergency department Medications were administered in the Emergency Department. See MAR. Counseling: I had a detailed discussion with the patient and/or guardian regarding the historical points, exam findings, and any diagnostic results supporting the discharge/admit diagnosis, the need for outpatient follow up, to return to the emergency department if symptoms worsen or persist or if there are any questions or concerns that arise at home. Special discussion: I discussed with the patient/guardian in detail that at this point there is no indication for admission to the hospital. It is understood, however, that if the symptoms persist or worsen the patient needs to return immediately for re-evaluation. ED course: On reevaluation patient is improved, alert and orient x4, no apparent distress, nontoxic-appearing, ambulatory in emergency room, speaking full sentences. Patient follow-up with his primary care physician in 2 to 3 days. Patient understands and agrees with plan. All questions were answered. Return precautions discussed include worsening symptoms, or any other concerns. Administered Medications: 20:37 Drug: metoCLOPramide IVP 10 mg IVP once; over 1 to 2 minutes Route: IVP; Site: right me1 antecubital; 21:40 Follow up: Response: No adverse reaction; Pain is decreased me1 20:37 Drug: diphenhydrAMINE IVP 25 mg IVP once Route: IVP; Site: right antecubital; me1 21:40 Follow up: Response: No adverse reaction; Pain is decreased me1 20:37 Drug: Ketorolac IVP 10 mg 10 mg IVP once Route: IVP; Site: right antecubital; me1 21:41 Follow up: Response: No adverse reaction; Pain is decreased me1 20:37 Drug: NS 0.9% IV 1000 ml IV at 1 bolus Per protocol; 1000 mL bolus Route: IV; Rate: 1 me1 bolus; Site: right antecubital; 21:41 Follow up: IV Status: Completed infusion; IV Intake: 1000ml me1 Disposition Summary: 11/26/22 21:13 Discharge Ordered Notes: Location: Home ms3 Condition: Stable ms3 Diagnosis - Headache ms3 - Influenza ms3 - Elevated blood-pressure reading, without diagnosis of hypertension ms3 Followup: ms3 - With: Private Physician - When: 2 - 3 days - Reason: Recheck today's complaints Discharge Instructions: - Discharge Summary Sheet ms3 - General Headache Without Cause ms3 - Influenza, Adult, [id number] ms3 Forms: - Medication Reconciliation Form ms3 - Thank You Letter ms3 - Antibiotic Education ms3 - Prescription Opioid Use ms3 - Patient Portal Instructions ms3 - Leadership Thank You Letter ms3 Signatures: Rosa Patricio RN RN ap3 Tl Cruz DO DO ms3 Anastasia Blackwood RN RN me1
== END 2022-11-26 21:42 | disposition home or self-care (01) ==
LOC: ER 19:53
DX: J11.1 Influenza due to unidentified influenza virus with other respiratory manifestations (principal); R03.0 Elevated blood-pressure reading, without diagnosis of hypertension; Z88.0 Allergy status to penicillin
CPT/HCPCS: 96361; 96375; 96374; 99284; J2765; J1200; J7030

== ENCOUNTER 2023-07-26 04:51 | Emergency (ER) | payer OTHER ==
[2023-07-26] MEDS ORDERED: DIAZEPAM 10 MG/2 ML INJ SYRINGE ONE (05:35)
[2023-07-26] MEDS ORDERED: NA CHLORIDE 0.9% 1,000 ML ONE (05:35)
[2023-07-26 05:44] LABS: Absolute Basophils 0.1 K/uL (0-0.5); Absolute Eosinophils 0.1 K/uL (0-0.5); Absolute Lymphocytes (CBC) 3.8 K/uL (0.7-4.9); Absolute Monocytes 0.6 K/uL (0.1-1.3); Absolute Neutrophil 6.8 K/uL (1.8-8.0); Basophils % 0.6 % (0-1.3); Hematocrit 42.9 % (39.6-49.0); Hemoglobin 14.6 g/dL (13.6-17.9); Lymphocytes % 33.8 % (15.3-44.8); MCH 29.3 pg (27.0-35.0); MCHC 34.1 g/dL (32.0-36.0); MCV 86.1 fL (80-100); MPV 7.5 fL (7.6-11.3); Monocytes % 4.9 % (3.3-12.3); Neutrophils % 59.7 % (41.7-73.7); Nucleated Red Blood Cells % 0.3 % (0-0); Platelets 267 thou/uL (152-406); RBC Red Blood Cell Count 4.98 M/uL (4.33-5.43); Red Cell Distribution Width 15.2 % (12.1-15.2)
[2023-07-26 05:58] LABS: ALT/SGPT 31 U/L (16-61); AST/SGOT 16 U/L (15-37); Albumin/Globulin Ratio 1.1 (1.1-1.8); Alkaline Phosphatase 61 U/L (45-117); Anion Gap 10.7 mEq/L (5.0-15.0); BUN Blood Urea Nitrogen 16 mg/dL (7-18); Bicarbonate 24 mEq/L (21-32); Bilirubin Total 0.5 mg/dL (0.2-1.0); Globulin 3.5 g/dL (2.3-3.5); Glomerular Filtration Rate 90 ml/min (=/>90); Glucose Level 94 mg/dL (74-106); Potassium 3.7 mEq/L (3.5-5.1); Protein, Total 7.5 g/dL (6.4-8.2); Sodium Level 139 mEq/L (136-145); Troponin High Sensitivity 4.6 pg/mL (<58.9)
[2023-07-26 05:59] LABS: Bilirubin Direct < 0.2 mg/dL (0-0.2); Bilirubin Indirect, Calculated 0.3 mg/dL (0.2-0.8)
[2023-07-26] MEDS ORDERED: KETOROLAC 30 MG/ML INJ ONE (06:05)
[2023-07-26] MEDS ORDERED: FAMOTIDINE 20 MG/2 ML VIAL IV ONE (06:05)
[2023-07-26] MEDS ORDERED: ONDANSETRON 4 MG/2 ML VIAL ONE (06:05)
[2023-07-26] MEDS ORDERED: MORPHINE 4 MG/ML SYR ONE (06:05)
[2023-07-26 06:31] LABS: Barbiturates NEGATIVE (NEGATIVE); Benzodiazepines NEGATIVE (NEGATIVE); Cocaine NEGATIVE (NEGATIVE); METHAMPHETAM NEGATIVE (NEGATIVE); Methadone NEGATIVE (NEGATIVE); Opiates NEGATIVE (NEGATIVE); Phencyclidine NEGATIVE (NEGATIVE); THC Cannibis NEGATIVE (NEGATIVE)
--- NOTE | 2023-07-26 07:18 | EDPHYS ---
Physician Document[facility] Name: Kris Taylor Age: 33 yrs Sex: Male : 1990 Arrival Date: 07/26/2023 Time: 04:51 Bed 2 Private MD: ED Physician Ye Gonzalez HPI: 07/25 05:29 This 33 yrs old Male presents to ER via Wheelchair with complaints of Chest sp4 Pain, Irregular Pulse. 07:22 33-year-old male presents with complaint of acute chest pain palpitations and pleuritic sp4 chest pain also some anxiety. Historical: - Allergies: 05:10 PENICILLINS; vc1 - PMHx: 05:10 Anxiety; Asthma; Back pain; Chronic pain; Kidney stones; mitral valve prolapse; vc1 - PSHx: 05:10 None; vc1 - Immunization history:: Client reports having NOT received the Covid vaccine. Flu vaccine is up to date. - Infectious Disease History:: Denies. - Social history:: Smoking status: Patient denies any tobacco usage or history of. Patient/guardian denies using alcohol. - Family history:: not pertinent. ROS: 07:22 Constitutional: Negative for fever, chills, and weight loss, positive for pleuritic sp4 chest pain, positive palpitations, positive for anxiety 07:22 All other systems are negative, Exam: 07:19 Constitutional: This is a well developed, well nourished patient who is awake, alert, sp4 and in no acute distress. Head/Face: Normocephalic, atraumatic. Eyes: Pupils equal round and reactive to light, extra-ocular motions intact. Lids and lashes normal. Conjunctiva and sclera are not injected. Cornea within normal limits. Periorbital areas with no swelling, redness, or edema. ENT: Nares patent. No nasal discharge, no septal abnormalities noted. Tympanic membranes are normal and external auditory canals are clear. Oropharynx with no redness, swelling, or masses, exudates, or evidence of obstruction, uvula midline. Mucous membranes moist. Neck: Trachea midline, no thyromegaly or masses palpated, and no cervical lymphadenopathy. Supple, full range of motion without nuchal rigidity, or vertebral point tenderness. Chest/axilla: Normal chest wall appearance and motion. Nontender with no deformity. No lesions are appreciated. Cardiovascular: Regular rate and rhythm with a normal S1 and S2. No gallops, murmurs, or rubs. Normal PMI, no JVD. No pulse deficits. Respiratory: Lungs have equal breath sounds bilaterally, clear to auscultation and percussion. No rales, rhonchi or wheezes noted. No increased work of breathing, no retractions or nasal flaring. Abdomen/GI: Soft, with normal bowel sounds. No distension or tympany. No guarding or rebound. No evidence of tenderness throughout. Back: No spinal tenderness. No costovertebral tenderness. Skin: Warm, dry with normal turgor. Normal color with no rashes, no lesions, and no evidence of cellulitis. MS/ Extremity: Pulses equal, no cyanosis. Neurovascular intact. Full, normal range of motion. Neuro: Awake and alert, GCS 15, oriented to person, place, time, and situation. Cranial nerves II-XII grossly intact. Motor strength 5/5 in all extremities. Sensory grossly intact. Psych: Awake, alert, with orientation to person, place and time. Behavior, mood, and affect are within normal limits 07:19 ECG was reviewed by the Attending Physician. At 0 456 sinus tachycardia at a rate of 117 otherwise normal Vital Signs: 05:08 BP 139 / 106; Pulse 114; Resp 15; Temp 98; Pulse Ox 100% ; Weight 63.5 kg; Height 5 ft. vc1 10 in. ; Pain 9/10; 06:00 BP 122 / 92; Pulse 91; Resp 17; Pulse Ox 100% on R/A; lc8 07:00 BP 128 / 92; Pulse 84; Resp 16; Pulse Ox 100% on R/A; lc8 07:25 BP 128 / 92; Pulse 86; Resp 17; Temp 97.8; Pulse Ox 100% ; ap3 05:08 Body Mass Index 20.09 (63.50 kg, 177.8 cm) vc1 05:08 Pain Scale: Adult vc1 John Coma Score: 07:19 Eye Response: spontaneous(4). Motor Response: obeys commands(6). Verbal Response: sp4 oriented(5). Total: 15. MDM: 05:31 Patient medically screened. sp4 07:04 ED course: XR CHEST 1 VIEW INDICATION: CHEST PAIN TECHNIQUE: chest 1 view. COMPARISON: sp4 None FINDINGS: Cardiovascular and mediastinum: The cardiac silhouette is within normal limits in size. The central vascularity is within normal limits. Mediastinum is within normal limits. Lungs and pleural spaces: No focal consolidation. No sign of pleural effusion. No pneumothorax. Bones: No significant findings Soft tissues: No significant findings Other: No significant findings IMPRESSION: No acute cardiopulmonary disease. . 07:21 Differential diagnosis: acute pericarditis, anxiety, chest wall pain, costochondritis, sp4 esophagitis, gastritis. HEART Score: History: Slightly Suspicious (0), ECG: Normal (0), Age: < or = 45 years (0), Risk Factors: No Risk Factors Known (0), Troponin: < or = 1 x Normal Limit (0), Total Score = 0. Data reviewed: vital signs, nurses notes, lab test result(s), EKG, radiologic studies, plain films. 07/25 05:30 Order name: Basic Metabolic Panel; Complete Time: 07:02 1 07/25 05:30 Order name: CBC with Diff; Complete Time: 07:02 1 07/25 05:30 Order name: Troponin HS; Complete Time: 07:02 vc1 07/25 05:31 Order name: LFT's; Complete Time: 07:02 sp4 07/25 05:31 Order name: Urine Drug Screen; Complete Time: 07:02 sp4 07/25 05:30 Order name: XRAY Chest (1 view) vc1 07/25 05:30 Order name: EKG; Complete Time: 05:30 1 07/25 05:30 Order name: Cardiac monitoring; Complete Time: 05:32 1 07/25 05:30 Order name: EKG - Nurse/Tech; Complete Time: 05:32 1 07/25 05:30 Order name: IV Saline Lock; Complete Time: 05:32 1 07/25 05:30 Order name: Labs collected and sent; Complete Time: 05:32 [facility] 07/25 05:30 Order name: O2 Per Protocol; Complete Time: :32 1 07/25 05:30 Order name: O2 Sat Monitoring; Complete Time: 05:32 vc1 EC:19 Rate is 117 beats/min. Rhythm is regular, Sinus tachycardia. QRS [place] is Normal. [place] sp4 interval is normal. QRS interval is normal. QT interval is normal. No Q waves. T waves are Normal. No ST changes noted. Clinical impression: No evidence of ischemia. Interpreted by me. Reviewed by me. Administered Medications: 05:41 Drug: NS 0.9% IV 1000 ml IV at 1 bolus Per protocol; 1000 mL bolus Route: IV; Rate: 1 lc8 bolus; Site: right forearm; 07:26 Follow up: IV Status: Completed infusion; IV Intake: 1000ml ap3 05:41 Drug: Diazepam IVP 5 mg IVP once Route: IVP; Site: right forearm; lc8 07:26 Follow up: Response: No adverse reaction ap3 06:10 Drug: Ketorolac IVP 30 mg IVP once Route: IVP; Site: right forearm; lc8 07:26 Follow up: Response: No adverse reaction; Pain is decreased ap3 06:10 Drug: morphine IVP or IV 4 mg IVP once over 4 mins Route: IVP; Infused Over: 4 mins; lc8 Site: right forearm; 07:26 Follow up: Response: No adverse reaction; Pain is decreased ap3 06:11 Drug: Ondansetron IVP 4 mg IVP once; over 2 minutes Route: IVP; Site: right forearm; lc8 07:25 Follow up: Response: No adverse reaction ap3 06:11 Drug: Famotidine IVP 20 mg IVP once; dilute with 10 mL 0.9% NaCl; give over 2 minutes lc8 Route: IVP; Site: right forearm; 07:25 Follow up: Response: No adverse reaction ap3 Disposition Summary: 07/26/23 07:17 Discharge Ordered Notes: Location: Home sp4 Problem: new sp4 Symptoms: have improved sp4 Condition: Stable sp4 Diagnosis - Chest pain on breathing sp4 - Palpitations sp4 - Acute anxiety attack sp4 Followup: sp4 - With: Private Physician - When: 7 - 10 days - Reason: Recheck today's complaints Discharge Instructions: - Discharge Summary Sheet sp4 - Managing Anxiety, Adult sp4 Forms: - Patient Portal Instructions sp4 Prescriptions: - Valium 5 mg Oral tablet - take 1 tablet ORAL route once daily As needed PRN anxiety; 20 tablet; Refills: sp4 0, Product Selection Permitted Signatures: Dispatcher MedWOWash Felicita Newsome RN RN vc1 Ye Gonzalez MD MD sp4 Jay Powell RN RN lc8 Rosa Patricio RN ap3 Corrections: (The following items were deleted from the chart) 05:31 05:31 HEPATIC FUNCTION+C.LAB.BRZ ordered. EDMS EDMS 05:31 05:31 URINE DRUG SCREEN+UC.LAB.BRZ ordered. EDMS EDMS
--- NOTE | 2023-07-26 07:18 | ER ---
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 Coronavirus screen: Client denies travel out of the [place] in the last 14 days. At this time, the client does not indicate any symptoms associated with coronavirus-19. Ebola Screen: Patient negative for fever greater than or equal to 101.5 degrees Fahrenheit, and additional compatible Ebola Virus Disease symptoms Patient denies exposure to infectious person. Patient denies travel to an Ebola-affected area in the 21 days before illness onset. No symptoms or risks identified at this time. Initial Sepsis Screen: Does the patient meet any 2 criteria? No. Patient's initial sepsis screen is negative. Does the patient have a suspected source of infection? No. Patient's initial sepsis screen is negative. Risk Assessment: Do you want to hurt yourself or someone else? Patient reports no desire to harm self or others. Onset of symptoms was July 26, 2023 at 04:00. 05:08 Method Of Arrival: Wheelchair vc1 05:08 Acuity: ELSA 3 vc1 Triage Assessment: 05:12 General: Appears in no apparent distress. uncomfortable, Behavior is calm, cooperative, vc1 appropriate for age. Pain: Complains of pain in left breast Pain does not radiate. Pain currently is 9 out of 10 on a pain scale. Quality of pain is described as sharp, pulsating, Pain began suddenly, 1 hour ago. Is continuous, Noted to be grimacing, shaking. EENT: No deficits noted. No signs and/or symptoms were reported regarding the EENT system. Neuro: Level of Consciousness is awake, alert, obeys commands, Oriented to person, place, time, situation, Appropriate for age. Cardiovascular: Capillary refill < 3 seconds Patient's skin is warm and dry. Rhythm is sinus tachycardia Chest pain is described as severe, quality is sharp, is located in. Cardiovascular: Reports chest pain, palpitations. Respiratory: Airway is patent Respiratory effort is even, unlabored, Respiratory pattern is regular, symmetrical, Breath sounds are clear. GI: No deficits noted. No signs and/or symptoms were reported involving the gastrointestinal system. : No deficits noted. No signs and/or symptoms were reported regarding the genitourinary system. Derm: Skin is intact, is healthy with good turgor, Skin is dry, Skin is normal, Skin temperature is warm. Musculoskeletal: No deficits noted. No signs and/or symptoms reported regarding the musculoskeletal system. Historical: - Allergies: 05:10 PENICILLINS; vc1 - PMHx: 05:10 Anxiety; Asthma; Back pain; Chronic pain; Kidney stones; mitral valve prolapse; vc1 - PSHx: 05:10 None; vc1 - Immunization history:: Client reports having NOT received the Covid vaccine. Flu vaccine is up to date. - Infectious Disease History:: Denies. - Social history:: Smoking status: Patient denies any tobacco usage or history of. Patient/guardian denies using alcohol. - Family history:: not pertinent. Screenin:15 [facility] ED Fall Risk Assessment (Adult) History of falling in the last 3 months, vc1 including since admission No falls in past 3 months (0 pts) Confusion or Disorientation No (0 pts) Intoxicated or Sedated No (0 pts) Impaired Gait No (0 pts) Mobility Assist Device Used No (0 pt) Altered Elimination No (0 pt) Score/Fall Risk Level 0 - 2 = Low Risk Oriented to surroundings, Maintained a safe environment, Educated pt \T\ family on fall prevention, incl call for assistance when getting out of bed, Assessed \T\ reinforced patient's understanding of fall precautions. Abuse screen: Denies threats or abuse. Nutritional screening: No deficits noted. Tuberculosis screening: No symptoms or risk factors identified. Assessment: 05:10 General: Appears in no apparent distress. Behavior is calm, cooperative, appropriate lc8 for age. 05:10 Neuro: Level of Consciousness is awake, alert, obeys commands, Oriented to person, lc8 place, time, situation. 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 Cardiovascular: Heart tones present Rhythm is sinus tachycardia. Respiratory: Airway is patent Respiratory effort is even, unlabored, Respiratory pattern is regular, symmetrical. GI: No signs and/or symptoms were reported involving the gastrointestinal system. Patient currently denies. : No signs and/or symptoms were reported regarding the genitourinary system. Denies. EENT: Denies. 05:10 Pain: Complains of pain in chest Pain does not radiate. Pain currently is 9 out of 10 lc8 on a pain scale. Pain began 30 min ago. 06:00 Reassessment: No changes from previously documented assessment. Patient and/or family lc8 updated on plan of care and expected duration. Pain level reassessed. Patient is alert, oriented x 3, equal unlabored respirations, skin warm/dry/pink. 07:19 Reassessment: Patient and/or family updated on plan of care and expected duration. Pain ap3 level reassessed. Patient is alert, oriented x 3, equal unlabored respirations, skin warm/dry/pink. Patient states feeling better. Patient states symptoms have improved. General: Appears in no apparent distress. Behavior is calm, cooperative, appropriate for age. Neuro: Level of Consciousness is awake, alert, obeys commands, Oriented to person, place, time, situation, Appropriate for age. Cardiovascular: Patient's skin is warm and dry. Respiratory: Airway is patent Respiratory effort is even, unlabored. Vital Signs: 05:08 BP 139 / 106; Pulse 114; Resp 15; Temp 98; Pulse Ox 100% ; Weight 63.5 kg; Height 5 ft. vc1 10 in. ; Pain 9/10; 06:00 BP 122 / 92; Pulse 91; Resp 17; Pulse Ox 100% on R/A; lc8 07:00 BP 128 / 92; Pulse 84; Resp 16; Pulse Ox 100% on R/A; lc8 07:25 BP 128 / 92; Pulse 86; Resp 17; Temp 97.8; Pulse Ox 100% ; ap3 05:08 Body Mass Index 20.09 (63.50 kg, 177.8 cm) vc1 05:08 Pain Scale: Adult vc1 [place] Coma Score: 07:19 Eye Response: spontaneous(4). Motor Response: obeys commands(6). Verbal Response: sp4 oriented(5). Total: 15. ED Course: 04:52 Patient arrived in ED. jj6 05:05 Inserted saline lock: 20 gauge in right forearm, using aseptic technique. Blood lc8 collected. 05:10 Triage completed. vc1 05:11 Arm band placed on right wrist. vc1 05:17 Patient has correct armband on for positive identification. Placed in gown. Bed in low vc1 position. Call light in reach. Side rails up X2. playground monitor on. Pulse ox on. NIBP on. 05:29 Ye Gonzalez MD is Attending Physician. vc1 05:32 Troponin HS Sent. lc8 05:32 CBC with Diff Sent. lc8 05:32 Basic Metabolic Panel Sent. lc8 05:55 XRAY Chest (1 view) In Process Unspecified. EDMS 06:13 Urine Drug Screen Sent. lc8 07:15 Rosa Patricio, JAVIER is Primary Nurse. ap3 07:19 O2 via room air. ap3 07:19 No provider procedures requiring assistance completed. ap3 07:19 Provided Education on: call light education. ap3 07:26 IV discontinued, intact, bleeding controlled, No redness/swelling at site. Pressure ap3 dressing applied. Administered Medications: 05:41 Drug: NS 0.9% IV 1000 ml IV at 1 bolus Per protocol; 1000 mL bolus Route: IV; Rate: 1 lc8 bolus; Site: right forearm; 07:26 Follow up: IV Status: Completed infusion; IV Intake: 1000ml ap3 05:41 Drug: Diazepam IVP 5 mg IVP once Route: IVP; Site: right forearm; lc8 07:26 Follow up: Response: No adverse reaction ap3 06:10 Drug: Ketorolac IVP 30 mg IVP once Route: IVP; Site: right forearm; lc8 07:26 Follow up: Response: No adverse reaction; Pain is decreased ap3 06:10 Drug: morphine IVP or IV 4 mg IVP once over 4 mins Route: IVP; Infused Over: 4 mins; lc8 Site: right forearm; 07:26 Follow up: Response: No adverse reaction; Pain is decreased ap3 06:11 Drug: Ondansetron IVP 4 mg IVP once; over 2 minutes Route: IVP; Site: right forearm; lc8 07:25 Follow up: Response: No adverse reaction ap3 06:11 Drug: Famotidine IVP 20 mg IVP once; dilute with 10 mL 0.9% NaCl; give over 2 minutes lc8 Route: IVP; Site: right forearm; 07:25 Follow up: Response: No adverse reaction ap3 Medication: 05:15 VIS not applicable for this client. vc1 Intake: : IV: 1000ml; Total: 1000ml. ap3 Outcome: 07:17 Discharge ordered by . sp4 : Discharged to home ambulatory, ap3 : Condition: good : Discharge instructions given to patient, Instructed on discharge instructions, follow up and referral plans. Demonstrated understanding of instructions, follow-up care, medications, Prescriptions given X 1, :26 Patient left the ED. ap3 Signatures: Dispatcher [employer] EDRosa Villanueva RN RN ap3 Tracie Smith jj6 Felicita Landrum RN RN vc1 Ye Gonzalez MD MD sp4 Jay Powell RN RN lc8
[2023-07-26 07:52] VITALS: BP 128/92; TEMP 97.8; O2SAT 100
--- NOTE | 2023-07-27 09:19 | RAD REPORT ---
EXAM DESCRIPTION: XR CHEST 1 VIEW CLINICAL HISTORY: CHEST PAIN TECHNIQUE: Chest 1 view. COMPARISON: None FINDINGS: Cardiovascular and mediastinum: The cardiac silhouette is within normal limits in size. Th e central vascularity is within normal limits. Mediastinum is within normal limits. Lungs and pleural spaces: No focal consolidation. No sign of pleural effusion. No pneumothorax. Bones: No significant findings Soft tissues: No significant findings Other: No significant findings IMPRESSION: No acute cardiopulmonary disease. Electronically signed by: Tayo Feliciano MD 07/26/2023 06:26 AM CDT RP Z Due to temporary technical issues with the PACS/Fluency reporting system, reports are being signed by the in house radiologist without review as a courtesy to ensure prompt reporting. The interpreting r adiologist is fully responsible for the content of the report.
--- NOTE | 2023-07-27 16:18 | EKG ---
Test Date: 2023-07-26 Test Time: 04:56:16 Work Station Support Specialist: MEASUREMENT RESULTS: Intervals: Rate: 117 SD: 138 QRSD: 80 QT: 314 QTc: 438 [place]: P: 84 SD: 138 QRS: 93 T: 46 INTERPRETIVE STATEMENTS: Sinus tachycardia Septal infarct, age undetermined Abnormal ECG Compared to ECG 08/26/2021 13:53:47 Sinus rhythm no longer present Sinus arrhythmia no longer present Atrial abnormality no longer present Right-axis deviation no longer present Myocardial infarct finding still present Electronically Signed On 07-27-23 16:16:34 CDT by Blayne Mcdaniel
== END 2023-07-26 07:26 | disposition home or self-care (01) ==
LOC: ER 04:51
DX: F41.0 Panic disorder [episodic paroxysmal anxiety] (principal); R00.2 Palpitations
CPT/HCPCS: 93005; 85025; 80048; 36415; 80076; 84484; 80307; 71045; J3360; J2405; J7030

== ENCOUNTER 2023-09-09 06:23 | Emergency (ER) | payer SELFPAY ==
[2023-09-09] MEDS ORDERED: DIAZEPAM 5 MG TABLET ONE (07:05)
--- NOTE | 2023-09-09 08:01 | ER ---
Nurse's Notes [facility] Name: Kris Taylor Age: 33 yrs Sex: Male : 1990 Arrival Date: 09/09/2023 Time: 06:23 Bed 6 Private MD: Diagnosis: Chest pain, unspecified Presentation: 09/08 06:34 Chief complaint: Patient states: chest discomfort that began at 0200 this morning after ss having intercourse with his . States just doesn't feel right. Coronavirus screen: At this time, the client does not indicate any symptoms associated with coronavirus-19. Ebola Screen: No symptoms or risks identified at this time. Initial Sepsis Screen: Does the patient meet any 2 criteria? No. Patient's initial sepsis screen is negative. Does the patient have a suspected source of infection? No. Patient's initial sepsis screen is negative. Risk Assessment: Do you want to hurt yourself or someone else? Patient reports no desire to harm self or others. Onset of symptoms was September 09, 2023. 06:34 Method Of Arrival: Ambulatory ss 06:34 Acuity: ELSA 3 ss Triage Assessment: 06:45 General: Appears in no apparent distress. Behavior is calm, cooperative. ss Cardiovascular: No deficits noted. Historical: - Allergies: 06:44 PENICILLINS; ss - PMHx: 06:44 Anxiety; Asthma; Back pain; Chronic pain; Kidney stones; mitral valve prolapse; ss - Immunization history:: Adult Immunizations up to date. - Infectious Disease History:: Denies. - Family history:: not pertinent. Screenin:11 [facility] ED Fall Risk Assessment (Adult) History of falling in the last 3 months, kc6 including since admission No falls in past 3 months (0 pts) Confusion or Disorientation No (0 pts) Intoxicated or Sedated No (0 pts) Impaired Gait No (0 pts) Mobility Assist Device Used No (0 pt) Altered Elimination No (0 pt) Score/Fall Risk Level 0 - 2 = Low Risk. Abuse screen: Denies threats or abuse. Denies injuries from another. Nutritional screening: No deficits noted. Tuberculosis screening: No symptoms or risk factors identified. Assessment: 07:11 General: Appears in no apparent distress. comfortable, well groomed, well developed, kc6 Behavior is cooperative, appropriate for age, anxious. Pain: Complains of pain in anterior aspect of right upper chest, anterior aspect of left upper chest and mid-sternal area Pain does not radiate. Pain currently is 6 out of 10 on a pain scale. Quality of pain is described as dull, pressure, Pain began 4 hours ago. Is continuous. Neuro: Level of Consciousness is awake, alert, obeys commands, Oriented to person, place, time, situation, Appropriate for age. Cardiovascular: Reports chest pain, Heart tones S1 S2 present Capillary refill < 3 seconds Rhythm is sinus tachycardia. Respiratory: Airway is patent Trachea midline Respiratory effort is even, unlabored, Respiratory pattern is regular, symmetrical. GI: No signs and/or symptoms were reported involving the gastrointestinal system. : No signs and/or symptoms were reported regarding the genitourinary system. EENT: No signs and/or symptoms were reported regarding the EENT system. Derm: No signs and/or symptoms reported regarding the dermatologic system. Skin is intact, is healthy with good turgor, Skin is pink, warm \T\ dry. Musculoskeletal: No signs and/or symptoms reported regarding the musculoskeletal system. Circulation, motion, and sensation intact. Capillary refill < 3 seconds, Range of motion: intact in all extremities. 08:11 Reassessment: Patient appears in no apparent distress at this time. No changes from kc6 previously documented assessment. Patient and/or family updated on plan of care and expected duration. Pain level reassessed. Patient is alert, oriented x 3, equal unlabored respirations, skin warm/dry/pink. Patient states feeling better. Patient states symptoms have improved. Vital Signs: 06:34 BP 134 / 96; Pulse 82; Resp 17; Temp 97.7; Pulse Ox 100% ; Weight 63.5 kg; Height 5 ft. ss 10 in. ; Pain 6/10; 07:13 BP 134 / 87; Pulse 94; Resp 19 S; Pulse Ox 99% on R/A; Pain 6/10; kc6 08:10 BP 125 / 82; Pulse 85; Resp 18 S; Pulse Ox 99% on R/A; Pain 2/10; kc6 06:34 Body Mass Index 20.09 (63.50 kg, 177.8 cm) ss 06:34 Pain Scale: Adult ss 07:13 Pain Scale: Adult kc6 08:10 Pain Scale: Adult kc6 [place] Coma Score: 07:15 Eye Response: spontaneous(4). Motor Response: obeys commands(6). Verbal Response: sp4 oriented(5). Total: 15. ED Course: 06:29 Patient arrived in ED. eb 06:31 Ye Gonzalez MD is Attending Physician. sp4 06:44 Triage completed. ss 06:46 Arm band placed on. ss 07:00 Attending Physician role handed off by Ye Gonzalez MD rt 07:00 Kenny Ying MD is Attending Physician. rt 07:02 Kaylah Castillo RN is Primary Nurse. kc6 07:11 Patient has correct armband on for positive identification. Placed in gown. Bed in low kc6 position. Call light in reach. Side rails up X 1. laboratory monitor on. Pulse ox on. NIBP on. Door closed. Noise minimized. Lights dimmed. Warm blanket given. Pillow given. 08:11 No provider procedures requiring assistance completed. Patient did not have IV access kc6 during this emergency room visit. Administered Medications: 07:11 Drug: Diazepam PO 10 mg PO once Route: PO; kc6 08:11 Follow up: Response: No adverse reaction; Pain is decreased; Anxiety decreased; RASS: kc6 Alert and Calm (0) Medication: 08:11 VIS not applicable for this client. kc6 Outcome: 08:01 Discharge ordered by . rt 08:11 Discharged to home ambulatory, kc6 08:11 Condition: improved 08:11 Discharge instructions given to patient, Instructed on discharge instructions, follow up and referral plans. no drinking with medication, no driving heavy equipment, Demonstrated understanding of instructions, follow-up care, 08:11 Patient left the ED. kc6 Signatures: Dennise Daugherty, RN RN Charisse Castellano Kaylah Castillo RN RN kc Kenny Ying MD MD rt Ye Gonzalez MD MD sp4
--- NOTE | 2023-09-09 08:01 | EDPHYS ---
Physician Documentation [facility] Name: Kris Taylor Age: 33 yrs Sex: Male : 1990 Arrival Date: 09/09/2023 Time: 06:23 Bed 6 Private MD: ED Physician Kenny Ying HPI: 09/08 06:31 This 33 yrs old Male presents to ER via Unassigned with complaints of chest sp4 pain . Historical: - Allergies: 06:44 PENICILLINS; ss - PMHx: 06:44 Anxiety; Asthma; Back pain; Chronic pain; Kidney stones; mitral valve prolapse; ss - Immunization history:: Adult Immunizations up to date. - Infectious Disease History:: Denies. - Family history:: not pertinent. ROS: 07:15 Constitutional: Negative for fever, chills, and weight loss, Eyes: Negative for injury, sp4 pain, redness, and discharge, positive anxiety 07:15 All other systems are negative, Exam: 07:15 Constitutional: This is a well developed, well nourished patient who is awake, alert, sp4 and in no acute distress. Head/Face: Normocephalic, atraumatic. Eyes: Pupils equal round and reactive to light, extra-ocular motions intact. Lids and lashes normal. Conjunctiva and sclera are not injected. Cornea within normal limits. Periorbital areas with no swelling, redness, or edema. ENT: Nares patent. No nasal discharge, no septal abnormalities noted. Tympanic membranes are normal and external auditory canals are clear. Oropharynx with no redness, swelling, or masses, exudates, or evidence of obstruction, uvula midline. Mucous membranes moist. Neck: Trachea midline, no thyromegaly or masses palpated, and no cervical lymphadenopathy. Supple, full range of motion without nuchal rigidity, or vertebral point tenderness. Chest/axilla: Normal chest wall appearance and motion. Nontender with no deformity. No lesions are appreciated. Cardiovascular: Regular rate and rhythm with a normal S1 and S2. No gallops, murmurs, or rubs. Normal PMI, no JVD. No pulse deficits. Respiratory: Lungs have equal breath sounds bilaterally, clear to auscultation and percussion. No rales, rhonchi or wheezes noted. No increased work of breathing, no retractions or nasal flaring. Abdomen/GI: Soft, with normal bowel sounds. No distension or tympany. No guarding or rebound. No evidence of tenderness throughout. Back: No spinal tenderness. No costovertebral tenderness. Skin: Warm, dry with normal turgor. Normal color with no rashes, no lesions, and no evidence of cellulitis. MS/ Extremity: Pulses equal, no cyanosis. Neurovascular intact. Full, normal range of motion. Neuro: Awake and alert, GCS 15, oriented to person, place, time, and situation. Cranial nerves II-XII grossly intact. Motor strength 5/5 in all extremities. Sensory grossly intact. Psych: Awake, alert, with orientation to person, place and time. Behavior, mood, and affect are within normal limits 07:42 ECG was reviewed by the Attending Physician. rt Vital Signs: 06:34 BP 134 / 96; Pulse 82; Resp 17; Temp 97.7; Pulse Ox 100% ; Weight 63.5 kg; Height 5 ft. ss 10 in. ; Pain 6/10; 07:13 BP 134 / 87; Pulse 94; Resp 19 S; Pulse Ox 99% on R/A; Pain 6/10; kc6 08:10 BP 125 / 82; Pulse 85; Resp 18 S; Pulse Ox 99% on R/A; Pain 2/10; kc6 06:34 Body Mass Index 20.09 (63.50 kg, 177.8 cm) ss 06:34 Pain Scale: Adult ss 07:13 Pain Scale: Adult kc6 08:10 Pain Scale: Adult kc6 [place] Coma Score: 07:15 Eye Response: spontaneous(4). Motor Response: obeys commands(6). Verbal Response: sp4 oriented(5). Total: 15. MDM: 07:01 Patient medically screened. rt 07:15 Differential Diagnosis altered mental status. Transition of care: After a detail sp4 discussion of the patient's case, care is transferred to Kenny Ying MD. 08:03 Differential Diagnosis Asthma, adjustment disorder, dysrhythmia. Data reviewed: vital rt signs, nurses notes, EKG. I considered the following discharge prescriptions or medication management in the emergency department Medications were administered in the Emergency Department. See MAR. Independent interpretation of the following test(s) in the Emergency Department EKG: See my EKG interpretation above. Test considered but Not performed: Other Details Patient with recent significant workup, symptoms not consistent with acute coronary syndrome, no acute ischemic changes on EKG, very low suspicion for coronary etiology, troponin is not indicated. Low suspicion for pulmonary embolus, CT angiogram not indicated. Care significantly affected by the following chronic conditions: Asthma. Counseling: I had a detailed discussion with the patient and/or guardian regarding the historical points, exam findings, and any diagnostic results supporting the discharge/admit diagnosis, the need for outpatient follow up. Response to treatment: the patient's symptoms have markedly improved after treatment. 09/08 07:01 Order name: EKG; Complete Time: 07: rt 09/08 07: Order name: EKG - Nurse/Tech; Complete Time: 07:11 rt EC:42 Rate is 110 beats/min. Rhythm is regular, Sinus tachycardia with No ectopy. Right axis rt deviation noted. IN interval is normal. QRS interval is normal. QT interval is normal. No Q waves. No ST changes noted. Interpreted by me. Administered Medications: 07:11 Drug: Diazepam PO 10 mg PO once Route: PO; kc6 08:11 Follow up: Response: No adverse reaction; Pain is decreased; Anxiety decreased; RASS: kc6 Alert and Calm (0) Disposition Summary: 09/09/23 08:01 Discharge Ordered Notes: Location: Home rt Problem: new rt Symptoms: have improved rt Condition: Stable rt Diagnosis - Chest pain, unspecified rt Followup: rt - With: Private Physician - When: 2 - 3 days - Reason: Discharge Instructions: - Discharge Summary Sheet rt - Nonspecific Chest Pain, Adult rt Forms: - Medication Reconciliation Form rt - Antibiotic Education rt - Prescription Opioid Use rt - Patient Portal Instructions rt - Leadership Thank You Letter rt Signatures: Dennise Daugherty, RN RN ss Kaylah Castillo RN RN kc6 Kenny Ying MD MD rt Ye Gonzalez MD MD sp4
[2023-09-09 11:05] VITALS: TEMP 97.7
[2023-09-09 11:06] VITALS: O2SAT 99
[2023-09-09 11:07] VITALS: BP 125/82
--- NOTE | 2023-09-11 17:04 | EKG ---
Test Date: 2023-09-09 Test Time: 07:09:07 Building And Grounds Supervisor: KATHARINE MEASUREMENT RESULTS: Intervals: Rate: 110 DC: 138 QRSD: 86 QT: 332 QTc: 449 [place]: P: 87 DC: 138 QRS: 97 T: 61 INTERPRETIVE STATEMENTS: Sinus tachycardia Right atrial enlargement Rightward axis Cannot rule out Anteroseptal infarct, age undetermined Abnormal ECG Compared to ECG 09/01/2023 07:15:29 Atrial abnormality now present Right-axis deviation now present Ventricular premature complex(es) no longer present Left-axis deviation no longer present Left ventricular hypertrophy no longer present Myocardial infarct finding still present Electronically Signed On 09-11-23 16:58:52 CDT by Blayne Mcdaniel
== END 2023-09-09 08:11 | disposition home or self-care (01) ==
LOC: ER 06:23
DX: R07.9 Chest pain, unspecified (principal)
CPT/HCPCS: 93005; 99284

== ENCOUNTER 2023-10-14 00:43 | Emergency (ER) | payer SELFPAY ==
[2023-10-14] MEDS ORDERED: dexAMETHasone 10 MG/ML VIAL ONE (00:57)
[2023-10-14] MEDS ORDERED: DIPHENHYDRAMINE 50 MG/ML VIAL ONE (00:57)
--- NOTE | 2023-10-14 03:01 | EDPHYS ---
Physician Documentation [facility] Name: Kris Taylor Age: 33 yrs Sex: Male : 1990 Arrival Date: 10/14/2023 Time: 00:43 Bed 5 Private MD: ED Physician Ye Gonzalez HPI: 10/13 00:53 This 33 yrs old Male presents to ER via Ambulatory with complaints of sp4 Allergic Reaction. 02:57 33-year-old male presents with complaint of acute onset throat discomfort after sp4 consuming cannabis gummy. Historical: - Allergies: 00:52 PENICILLINS; iw - Home Meds: 00:52 None [Active]; iw - PMHx: 00:52 Anxiety; Asthma; Back pain; Chronic pain; Kidney stones; mitral valve prolapse; iw - PSHx: 00:52 None; iw - Immunization history:: Adult Immunizations not up to date. - Infectious Disease History:: Denies. - Social history:: Smoking status: Patient denies any tobacco usage or history of. - Family history:: not pertinent. ROS: 02:57 Constitutional: Negative for fever, chills, and weight loss, positive for throat sp4 discomfort after cannabis gummy 02:57 All other systems are negative, Exam: 02:57 Constitutional: This is a well developed, well nourished patient who is awake, alert, sp4 and in no acute distress. Head/Face: Normocephalic, atraumatic. Eyes: Pupils equal round and reactive to light, extra-ocular motions intact. Lids and lashes normal. Conjunctiva and sclera are not injected. Cornea within normal limits. Periorbital areas with no swelling, redness, or edema. ENT: Nares patent. No nasal discharge, no septal abnormalities noted. Tympanic membranes are normal and external auditory canals are clear. Oropharynx with no redness, swelling, or masses, exudates, or evidence of obstruction, uvula midline. Mucous membranes moist. Neck: Trachea midline, no thyromegaly or masses palpated, and no cervical lymphadenopathy. Supple, full range of motion without nuchal rigidity, or vertebral point tenderness. Chest/axilla: Normal chest wall appearance and motion. Nontender with no deformity. No lesions are appreciated. Cardiovascular: Regular rate and rhythm with a normal S1 and S2. No gallops, murmurs, or rubs. Normal PMI, no JVD. No pulse deficits. Respiratory: Lungs have equal breath sounds bilaterally, clear to auscultation and percussion. No rales, rhonchi or wheezes noted. No increased work of breathing, no retractions or nasal flaring. Abdomen/GI: Soft, with normal bowel sounds. No distension or tympany. No guarding or rebound. No evidence of tenderness throughout. Back: No spinal tenderness. No costovertebral tenderness. Skin: Warm, dry with normal turgor. Normal color with no rashes, no lesions, and no evidence of cellulitis. MS/ Extremity: Pulses equal, no cyanosis. Neurovascular intact. Full, normal range of motion. Neuro: Awake and alert, GCS 15, oriented to person, place, time, and situation. Cranial nerves II-XII grossly intact. Motor strength 5/5 in all extremities. Sensory grossly intact. Psych: Awake, alert, with orientation to person, place and time. Behavior, mood, and affect are within normal limits Vital Signs: 00:51 BP 161 / 83; Pulse 108; Resp 16; Temp 97.6; Pulse Ox 100% on R/A; Weight 63.5 kg; iw Height 5 ft. 7 in. ; Pain 6/10; 01:45 BP 138 / 85; Pulse 94; Resp 18; Pulse Ox 100% on R/A; kd4 03:09 BP 137 / 83; Pulse 79; Resp 18; Temp 97.8(O); Pulse Ox 99% on R/A; Pain 0/10; kd4 00:51 Body Mass Index 21.93 (63.50 kg, 170.18 cm) iw 00:51 Pain Scale: Adult iw 03:09 Pain Scale: Adult kd4 John Coma Score: 02:57 Eye Response: spontaneous(4). Motor Response: obeys commands(6). Verbal Response: sp4 oriented(5). Total: 15. MDM: 00:54 Patient medically screened. sp4 02:59 Differential diagnosis: angioedema, Arrhythmias bronchospasm, Status Asthmaticus sp4 urticaria. Data reviewed: vital signs, nurses notes. Consideration of Admission/Observation Escalation of care including admission/observation considered. ED course: Has improved after medications and is feeling better, will discharge home. Administered Medications: 01:04 Drug: diphenhydrAMINE IM 50 mg IM once Route: IM; Site: right deltoid; kd4 03:10 Follow up: Response: No adverse reaction kd4 01:04 Drug: Dexamethasone IM 10 mg IM once Route: IM; Site: left deltoid; kd4 03:10 Follow up: Response: No adverse reaction kd4 Disposition Summary: 10/14/23 03:00 Discharge Ordered Notes: Location: Home sp4 Problem: new sp4 Symptoms: have improved sp4 Condition: Stable sp4 Diagnosis - Acute allergic reaction, sp4 Followup: sp4 - With: Private Physician - When: As needed - Reason: Recheck today's complaints Discharge Instructions: - Discharge Summary Sheet sp4 - Medical Screening Exam sp4 Forms: - Patient Portal Instructions sp4 Prescriptions: - Benadryl 25 mg Oral Capsule - take 1 capsule ORAL route every 6 hours As needed; 30 tablet; Refills: 0, sp4 Product Selection Permitted Signatures: Carly Palomo RN RN Ye Gonzalez MD MD sp4 Chan Mcknight RN RN kd4
--- NOTE | 2023-10-14 03:01 | ER ---
Nurse's Notes [facility] Name: Kris Taylor Age: 33 yrs Sex: Male : 1990 Arrival Date: 10/14/2023 Time: 00:43 Bed 5 Private MD: Diagnosis: Acute allergic reaction, Presentation: 10/13 00:51 Chief complaint: Patient states: thinks he is having a reaction to a CBD gummy he took, iw he thinks it was a THC gummy. Coronavirus screen: At this time, the client does not indicate any symptoms associated with coronavirus-19. Ebola Screen: No symptoms or risks identified at this time. Anaphylaxis evaluation, no signs or symptoms of anaphylaxis were noted. Initial Sepsis Screen: Does the patient meet any 2 criteria? No. Patient's initial sepsis screen is negative. Does the patient have a suspected source of infection? No. Patient's initial sepsis screen is negative. Risk Assessment: Do you want to hurt yourself or someone else? Patient reports no desire to harm self or others. Onset of symptoms was October 14, 2023. 00:51 Method Of Arrival: Ambulatory iw 00:51 Acuity: ELSA 3 iw 03:10 Onset: The symptoms/episode began/occurred. Onset: The symptoms/episode began/occurred kd4 acutely. Historical: - Allergies: 00:52 PENICILLINS; iw - Home Meds: 00:52 None [Active]; iw - PMHx: 00:52 Anxiety; Asthma; Back pain; Chronic pain; Kidney stones; mitral valve prolapse; iw - PSHx: 00:52 None; iw - Immunization history:: Adult Immunizations not up to date. - Infectious Disease History:: Denies. - Social history:: Smoking status: Patient denies any tobacco usage or history of. - Family history:: not pertinent. Screenin:01 [facility] ED Fall Risk Assessment (Adult) History of falling in the last 3 months, ha1 including since admission No falls in past 3 months (0 pts) Confusion or Disorientation No (0 pts) Intoxicated or Sedated No (0 pts) Impaired Gait No (0 pts) Mobility Assist Device Used No (0 pt) Altered Elimination No (0 pt) Score/Fall Risk Level 0 - 2 = Low Risk Oriented to surroundings, Maintained a safe environment, Educated pt \T\ family on fall prevention, incl call for assistance when getting out of bed, Hourly rounding (assess needs \T\ fall precautionary measures) done. Abuse screen: Denies threats or abuse. Denies injuries from another. Nutritional screening: No deficits noted. Tuberculosis screening: No symptoms or risk factors identified. Assessment: 00:45 General: Appears comfortable, Behavior is calm, cooperative. Pain: Complains of pain in ha1 SORE THROAT Pain does not radiate. Pain currently is 3 out of 10 on a pain scale. Quality of pain is described as burning. Neuro: Level of Consciousness is awake, alert, obeys commands, Oriented to person, place, time, situation. Cardiovascular: Capillary refill < 3 seconds Patient's skin is warm and dry. Respiratory: Reports SORE THROAT AFTER EATING AN EDIBLE THAT CONTAINED MARIJUANA Airway is patent Trachea midline Respiratory effort is even, unlabored, Respiratory pattern is regular, symmetrical, Breath sounds are clear bilaterally. Derm: Skin is pink, warm \T\ dry. Musculoskeletal: Circulation, motion, and sensation intact. 00:45 EENT: Oral mucosa is moist. ha1 Vital Signs: 00:51 BP 161 / 83; Pulse 108; Resp 16; Temp 97.6; Pulse Ox 100% on R/A; Weight 63.5 kg; iw Height 5 ft. 7 in. ; Pain 6/10; 01:45 BP 138 / 85; Pulse 94; Resp 18; Pulse Ox 100% on R/A; kd4 03:09 BP 137 / 83; Pulse 79; Resp 18; Temp 97.8(O); Pulse Ox 99% on R/A; Pain 0/10; kd4 00:51 Body Mass Index 21.93 (63.50 kg, 170.18 cm) iw 00:51 Pain Scale: Adult iw 03:09 Pain Scale: Adult kd4 Moodus Coma Score: 02:57 Eye Response: spontaneous(4). Motor Response: obeys commands(6). Verbal Response: sp4 oriented(5). Total: 15. ED Course: 00:44 Patient arrived in ED. jj6 00:45 Patient has correct armband on for positive identification. Placed in gown. Bed in low ha1 position. Call light in reach. Side rails up X 1. 00:52 Triage completed. iw 00:52 Arm band placed on. iw 00:53 Ye Gonzalez MD is Attending Physician. sp4 01:03 Provided Education on: MEDICATION ADMINISTRATION . ha1 01:05 No provider procedures requiring assistance completed. kd4 03:09 Patient did not have IV access during this emergency room visit. kd4 Administered Medications: 01:04 Drug: diphenhydrAMINE IM 50 mg IM once Route: IM; Site: right deltoid; kd4 03:10 Follow up: Response: No adverse reaction kd4 01:04 Drug: Dexamethasone IM 10 mg IM once Route: IM; Site: left deltoid; kd4 03:10 Follow up: Response: No adverse reaction kd4 Medication: 01:02 VIS not applicable for this client. ha1 Outcome: 03:00 Discharge ordered by . sp4 03:09 Discharged to home ambulatory, kd4 03:09 Condition: good 03:09 Discharge instructions given to patient, Prescriptions given X 1, 03:11 Patient left the ED. kd4 Signatures: Carly Palomo RN RN Tracie Smith jj6 Sloane Arellano RN RN ha1 Ye Gonzalez MD MD sp4 Chan Mcknight RN RN kd4 Corrections: (The following items were deleted from the chart) 01:03 00:45 General: Appears comfortable, Behavior is calm, cooperative, ha1 ha1
[2023-10-14 03:18] VITALS: BP 137/83; TEMP 97.8; O2SAT 99
== END 2023-10-14 03:11 | disposition home or self-care (01) ==
LOC: ER 00:43
DX: R07.0 Pain in throat (principal)
CPT/HCPCS: 96372; 99284; J1100; J1200

== ENCOUNTER 2024-01-11 08:13 | Emergency (ER) | payer OTHER, SELFPAY ==
--- NOTE | 2024-01-11 09:03 | RAD REPORT ---
Procedure: Chest Single View HISTORY: Chest. Pain COMPARISON: August 2023 FINDINGS: The lungs appear clear of acute infiltrate. Lungs are hyperaerated. No significant pleural effusion noted. The heart is normal size. IMPRESSION: Hyperaerated lungs may indicate reactive airway disease. No acute abnormality is displayed
--- NOTE | 2024-01-11 09:04 | EDPHYS ---
Physician Documentation [facility] Name: Kris Taylor Age: 33 yrs Sex: Male : 1990 Arrival Date: 01/11/2024 Time: 08:13 Bed 7 Private MD: ED Physician Сергей Bartlett HPI: 01/10 08:36 This 33 yrs old Male presents to ER via Ambulatory with complaints of Chest Pain, sp3 Dizziness. 08:36 . sp3 08:45 33-year-old male with history of asthma, anxiety, chronic pain, kidney stones, mitral sp3 valve prolapse now presents with recurrent chest pain today after taking "Unisom" in the morning. 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 After taking Unisom he developed some sharp chest pain which is now subsiding. He denies any other symptoms including fever, URI symptoms, shortness of breath, back pain, abdominal pain, nausea, vomiting, diarrhea, syncope, near syncope, prolonged immobilization, known sick contacts, travel history, or any other signs or symptoms on ROS at this time.. Historical: - Allergies: 08:24 PENICILLINS; ph - PMHx: 08:24 Anxiety; Asthma; Back pain; Chronic pain; Kidney stones; mitral valve prolapse; ph - Immunization history:: Adult Immunizations unknown. - Infectious Disease History:: Denies. - Social history:: Smoking status: Patient denies any tobacco usage or history of. ROS: 08:45 Constitutional: Negative for fever, chills, and weight loss, Eyes: Negative for injury, sp3 pain, redness, and discharge, ENT: Negative for injury, pain, and discharge, Neck: Negative for injury, pain, and swelling, Respiratory: Negative for shortness of breath, cough, wheezing, and pleuritic chest pain, Abdomen/GI: Negative for abdominal pain, nausea, vomiting, diarrhea, and constipation, Back: Negative for injury and pain, MS/Extremity: Negative for injury and deformity, Skin: Negative for injury, rash, and discoloration, Neuro: Negative for headache, weakness, numbness, tingling, and seizure, Psych: Negative for depression, anxiety, suicide ideation, homicidal ideation, and hallucinations, Allergy/Immunology: Negative for hives, rash, and allergies, Endocrine: Negative for neck swelling, polydipsia, polyuria, polyphagia, and marked weight changes, Hematologic/Lymphatic: Negative for swollen nodes, abnormal bleeding, and unusual bruising, 08:45 All other systems are negative, Exam: 08:45 Constitutional: This is a well developed, well nourished patient who is awake, alert, sp3 and in no acute distress. Head/Face: Normocephalic, atraumatic. Eyes: Pupils equal round and reactive to light, extra-ocular motions intact. Lids and lashes normal. Conjunctiva and sclera are non-icteric and not injected. Cornea within normal limits. Periorbital areas with no swelling, redness, or edema. ENT: Nares patent. No nasal discharge, no septal abnormalities noted. External auditory canals are clear. Oropharynx with no redness, swelling, or masses, exudates, or evidence of obstruction, uvula midline. Mucous membranes moist. Neck: Trachea midline, no thyromegaly or masses palpated, and no cervical lymphadenopathy. Supple, full range of motion without nuchal rigidity, or vertebral point tenderness. No Meningismus. Chest/axilla: Normal chest wall appearance and motion. Nontender with no deformity. No lesions are appreciated. Cardiovascular: Regular rate and rhythm with a normal S1 and S2. No gallops, murmurs, or rubs. Normal PMI, no JVD. No pulse deficits. Respiratory: Lungs have equal breath sounds bilaterally, clear to auscultation and percussion. No rales, rhonchi or wheezes noted. No increased work of breathing, no retractions or nasal flaring. Abdomen/GI: Soft, non-tender, with normal bowel sounds. No distension or tympany. No guarding or rebound. No evidence of tenderness throughout. Back: No spinal tenderness. No costovertebral tenderness. Full range of motion. Skin: Warm, dry with normal turgor. Normal color with no rashes, no lesions, and no evidence of cellulitis. MS/ Extremity: Pulses equal, no cyanosis. Neurovascular intact. Full, normal range of motion. Neuro: Awake and alert, GCS 15, oriented to person, place, time, and situation. Cranial nerves II-XII grossly intact. Motor strength 5/5 in all extremities. Sensory grossly intact. Cerebellar exam normal. Normal gait. Psych: Awake, alert, with orientation to person, place and time. Behavior, mood, and affect are within normal limits. 08:45 ECG was reviewed by the Attending Physician. EKG demonstrates normal sinus rhythm at 83 bpm with normal intervals, normal QRS, normal axis, nonspecific diffuse ST's ST changes without evidence of acute ischemia. Vital Signs: 08:23 BP 141 / 90; Pulse 86; Resp 18; Temp 97.9; Pulse Ox 99% on R/A; Weight 63.5 kg; Height ph 5 ft. 10 in. ; 09:25 BP 134 / 97; Pulse 72; Resp 17; Pulse Ox 100% ; ap3 08:23 Body Mass Index 20.09 (63.50 kg, 177.8 cm) ph MDM: 08:18 Medical Screening Exam initiated sp3 08:46 Data reviewed: vital signs, nurses notes, EKG, radiologic studies. ED course: sp3 33-year-old male with recurrent chest pain. Differential diagnosis includes anxiety, musculoskeletal pain, gastritis/GI pathology, among others. I am not clinically highly suspicious of acute coronary syndrome, PE, TAD, sepsis, shock or any other critical process. Will obtain EKG which is normal and chest x-ray which is pending and if negative safely discharge patient home with reassurance.. 12 08:19 Order name: XRAY Chest (1 view); Complete Time: 09:03 sp3 01/10 08:19 Order name: Cardiac monitoring; Complete Time: 08:27 sp3 01/10 08:19 Order name: EKG - Nurse/Tech; Complete Time: 08:37 sp3 Administered Medications: No medications were administered Disposition Summary: 01/11/24 09:04 Discharge Ordered Notes: Location: Home sp3 Condition: Stable sp3 Diagnosis - Chest pain, unspecified sp3 Followup: sp3 - With: Private Physician - When: Upon discharge from the Emergency Department - Reason: Recheck today's complaints, Continuance of care Discharge Instructions: - Discharge Summary Sheet sp3 - Nonspecific Chest Pain, Adult sp3 Forms: - Medication Reconciliation Form sp3 - Antibiotic Education sp3 - Prescription Opioid Use sp3 - Patient Portal Instructions sp3 - Leadership Thank You Letter sp3 Signatures: Dispatcher [employer] Donna Yanez RN RN ph Сергей Bartlett MD MD sp3 Corrections: (The following items were deleted from the chart) 08:20 08:19 Chest Single View+[email or web address] ordered. EDMS EDMS
--- NOTE | 2024-01-11 09:04 | ER ---
Nurse's Notes [facility] Name: Kris Taylor Age: 33 yrs Sex: Male : 1990 Arrival Date: 01/11/2024 Time: 08:13 Bed 7 Private MD: Diagnosis: Chest pain, unspecified Presentation: 01/10 08:23 Chief complaint: Patient states: Chest pain and dizziness that started this morning, ph states that it occurred approx 30 minutes after taking Unisom to help him sleep. Coronavirus screen: Vaccine status: Patient reports being unvaccinated. Ebola Screen: No symptoms or risks identified at this time. Initial Sepsis Screen: Does the patient meet any 2 criteria? No. Patient's initial sepsis screen is negative. Does the patient have a suspected source of infection? No. Patient's initial sepsis screen is negative. Risk Assessment: Do you want to hurt yourself or someone else? Patient reports no desire to harm self or others. Onset of symptoms was January 11, 2024. 08:23 Method Of Arrival: Ambulatory ph 08:23 Acuity: ELSA 3 ph Triage Assessment: 08:25 General: Appears in no apparent distress. comfortable, slender, well groomed, Behavior ph is calm, cooperative, appropriate for age. Pain: Complains of pain in left breast Pain does not radiate. Neuro: Level of Consciousness is awake, alert, obeys commands, Oriented to person, place, time, situation. Cardiovascular: Reports chest pain, lightheadedness. Respiratory: Airway is patent Respiratory effort is even, unlabored. GI: No signs and/or symptoms were reported involving the gastrointestinal system. Derm: Skin is pink, warm \T\ dry. Musculoskeletal: Circulation, motion, and sensation intact. Range of motion: intact in all extremities. Historical: - Allergies: 08:24 PENICILLINS; ph - PMHx: 08:24 Anxiety; Asthma; Back pain; Chronic pain; Kidney stones; mitral valve prolapse; ph - Immunization history:: Adult Immunizations unknown. - Infectious Disease History:: Denies. - Social history:: Smoking status: Patient denies any tobacco usage or history of. Screenin:26 [facility] ED Fall Risk Assessment (Adult) History of falling in the last 3 months, ph including since admission Yes- single mechanical fall (1 pt) Confusion or Disorientation No (0 pts) Intoxicated or Sedated No (0 pts) Impaired Gait No (0 pts) Mobility Assist Device Used No (0 pt) Altered Elimination No (0 pt) Score/Fall Risk Level 0 - 2 = Low Risk Oriented to surroundings, Maintained a safe environment, Hourly rounding (assess needs \T\ fall precautionary measures) done. Abuse screen: Denies threats or abuse. Denies injuries from another. Nutritional screening: No deficits noted. Tuberculosis screening: No symptoms or risk factors identified. Assessment: 08:37 General: SEE TRIAGE ASSESSMENT. ph 09:25 Pain: Pain began gradually. ap3 Vital Signs: 08:23 BP 141 / 90; Pulse 86; Resp 18; Temp 97.9; Pulse Ox 99% on R/A; Weight 63.5 kg; Height ph 5 ft. 10 in. ; 09:25 BP 134 / 97; Pulse 72; Resp 17; Pulse Ox 100% ; ap3 08:23 Body Mass Index 20.09 (63.50 kg, 177.8 cm) ph ED Course: 08:15 Patient arrived in ED. im 08:16 Donna Guerrero, RN is Primary Nurse. ph 08:18 Сергей Bartlett MD is Attending Physician. sp3 08:24 Triage completed. ph 08:26 Arm band placed on Patient placed in an exam room, on a stretcher. ph 08:26 Patient has correct armband on for positive identification. Placed in gown. Bed in low ph position. Call light in reach. Side rails up X 1. Client placed on continuous cardiac and pulse oximetry monitoring. NIBP monitoring applied. desk monitor on. Door closed. Noise minimized. Pillow given. 08:26 Patient maintains SpO2 saturation greater than 95% on room air. ph 08:37 EKG done, by ED staff, reviewed by Сергей Bartlett MD. ph 08:57 XRAY Chest (1 view) In Process Unspecified. EDMS 09:25 Provided Education on: discharge instruction. ap3 09:25 No provider procedures requiring assistance completed. Patient did not have IV access ap3 during this emergency room visit. Administered Medications: No medications were administered Medication: 08:26 VIS not applicable for this client. ph Outcome: 09:04 Discharge ordered by . sp3 09:25 Discharged to home ambulatory, ap3 09:25 Condition: good 09:25 Discharge instructions given to patient, Instructed on discharge instructions, follow up and referral plans. Demonstrated understanding of instructions, follow-up care, 09:26 Patient left the ED. ap3 Signatures: Dispatcher [employer] Donna Yanez RN RN ph Prokisch, Amanda, RN RN ap3 Сергей Bartlett MD MD sp3 Tiff King
[2024-01-11 15:00] VITALS: TEMP 97.9
[2024-01-11 15:01] VITALS: BP 134/97; O2SAT 100
== END 2024-01-11 09:26 | disposition home or self-care (01) ==
LOC: ER 08:13
DX: R07.9 Chest pain, unspecified (principal)
CPT/HCPCS: 71045; 99284

== ENCOUNTER 2024-01-20 06:14 | Emergency (ER) | payer SELFPAY ==
[2024-01-20 06:51] LABS: Absolute Eosinophils 0.3 K/uL (0-0.5); Absolute Lymphocytes (CBC) 3.1 K/uL (0.7-4.9); Absolute Monocytes 0.5 K/uL (0.1-1.3); Absolute Neutrophil 3.6 K/uL (1.8-8.0); Basophils % 0.6 % (0-1.3); Eosinophils % 3.8 % (0-4.4); Hematocrit 43.2 % (39.6-49.0); Hemoglobin 15.3 g/dL (13.6-17.9); Lymphocytes % 41.5 % (15.3-44.8); MCH 29.7 pg (27.0-35.0); MCHC 35.5 g/dL (32.0-36.0); MCV 83.6 fL (80-100); MPV 7.7 fL (7.6-11.3); Monocytes % 6.1 % (3.3-12.3); Nucleated Red Blood Cells % 0.1 % (0-0); Platelets 261 thou/uL (152-406); RBC Red Blood Cell Count 5.16 M/uL (4.33-5.43); Red Cell Distribution Width 13.1 % (12.1-15.2)
[2024-01-20 06:59] LABS: Specific Gravity 1.014 (1.005-1.030); Urine Bilirubin NEGATIVE (Negative); Urine Blood Negative (Negative); Urine Clarity Clear (Clear); Urine Color Colorless (Yellow); Urine Glucose NEGATIVE (Negative); Urine Ketones NEGATIVE (Negative); Urine Microscopic Reflex YN NO UMIC; Urine Nitrite NEGATIVE (Negative); Urine Protein NEGATIVE (Negative); Urine Urobilinogen Normal (Normal); Urine pH 6.5 (5.0-7.0)
[2024-01-20] MEDS ORDERED: KETOROLAC 30 MG/ML INJ ONE (07:03)
[2024-01-20] MEDS ORDERED: NA CHLORIDE 0.9% 1,000 ML ONE (07:03)
[2024-01-20 07:06] LABS: Albumin 4.4 g/dL (3.4-5.0); Albumin/Globulin Ratio 1.3 (1.1-1.8); Anion Gap 8.3 mEq/L (5.0-15.0); Bilirubin Total 0.4 mg/dL (0.2-1.0); Globulin 3.4 g/dL (2.3-3.5); Potassium 3.3 mEq/L (3.5-5.1); Protein, Total 7.8 g/dL (6.4-8.2)
--- NOTE | 2024-01-20 07:28 | RAD REPORT ---
EXAMINATION: CT ABDOMEN AND PELVIS WITHOUT CONTRAST CLINICAL INDICATION: left flank pain TECHNIQUE: CT abdomen and pelvis was performed, without IV contrast, as per department protocol. Axia l, sagittal and coronal reconstructions were obtained. One or more of the following dose reduction techniques were used: Automated exposure control, adjustment of the mA and kV according to the patien t size, and iterative reconstruction. Unless otherwise specified, incidental findings do not require dedicated imaging follow-up. COMPARISON: 10/16/2012 FINDINGS: The lack of intravenous contrast limits the sensitivity of this exam for evaluation of solid visceral organs, vascular structures, and retroperitoneum. LOWER CHEST: The visualized lung bases are clear. LIVER:Normal in size and contour. No focal lesion. Grossly unremarkable gallbladder. SPLEEN: Normal size. No focal lesion. PANCREAS: No mass, ductal dilation, or francie-pancreatic fluid. ADRENALS: Normal; no mass. KIDNEYS AND URETERS: Small calculi are present in the calyces of the right kidney. Tiny punctate calc cash also present calyces of the left kidney. No obstructing stone or hydronephrosis. URINARY BLADDER: Normal contour. GASTROINTESTINAL TRACT: No evidence of bowel obstruction, significant free fluid, free air or abscess . APPENDIX: Normal appendix. LYMPH NODES: No lymphadenopathy. MUSCULOSKELETAL: Mild lower lumbar spondylosis. ADDITIONAL FINDINGS: None. IMPRESSION: Punctate bilateral nephrolithiasis without hydronephrosis.
--- NOTE | 2024-01-20 07:55 | EDPHYS ---
Physician Documentation [facility] Name: Kris Taylor Age: 33 yrs Sex: Male : 1990 Arrival Date: 01/20/2024 Time: 06:14 Bed 20 Private MD: ED Physician Tl Cruz HPI: 01/19 08:00 This 33 yrs old Male presents to ER via Ambulatory with complaints of Low Back Pain - ms3 stomach pain. 08:00 Kris Taylor is a 33-year-old male presenting to the Emergency Department with ms3 complaints of lower back, abdominal, and left lower quadrant pain. He states that the pain began last night, around 2 or 3 AM. The patient describes the pain as similar to previous episodes of kidney stones. He has attempted to alleviate the pain with ibuprofen, which was ineffective. Additionally, he reports experiencing a little nausea and gagging but reports not having vomiting, diarrhea, fevers, or chills.. Historical: - Allergies: 06:38 PENICILLINS; vc1 - PMHx: 06:38 Anxiety; Asthma; Back pain; Chronic pain; Kidney stones; mitral valve prolapse; vc1 - PSHx: 06:38 None; vc1 - Immunization history:: Client reports having NOT received the Covid vaccine. . - Infectious Disease History:: Denies. - Social history:: Smoking status: Patient denies any tobacco usage or history of. ROS: 08:00 Constitutional: Negative for fever, and chills. Neck: Negative for injury, pain, and ms3 swelling, Cardiovascular: Negative for chest pain, and palpitations. Respiratory: Negative for shortness of breath, cough, wheezing, and pleuritic chest pain, 08:00 MS/Extremity: Negative for injury and deformity, Skin: Negative for injury, rash, and discoloration, 08:00 Abdomen/GI: Positive for abdominal pain, nausea, Exam: 08:00 Constitutional: This is a well developed, well nourished patient who is awake, alert, ms3 and in no acute distress. Chest/axilla: Normal chest wall appearance and motion. Nontender with no deformity. Cardiovascular: Regular rate and rhythm with a normal S1 and S2. No gallops, murmurs, or rubs. Normal PMI, no JVD. No pulse deficits. Respiratory: Lungs have equal breath sounds bilaterally, clear to auscultation and percussion. No rales, rhonchi or wheezes noted. No increased work of breathing, no retractions or nasal flaring. Abdomen/GI: Soft, non-tender, with normal bowel sounds. No distension or tympany. No guarding or rebound. No evidence of tenderness throughout. Skin: Warm, dry with normal turgor. Normal color with no rashes, no lesions, and no evidence of cellulitis. MS/ Extremity: Pulses equal, no cyanosis. Neurovascular intact. Full, normal range of motion. Vital Signs: 06:37 BP 151 / 107; Pulse 105; Resp 17; Temp 97.7; Pulse Ox 100% ; Weight 63.5 kg; Height 5 vc1 ft. 10 in. ; Pain 9/10; 07:00 BP 144 / 95; Pulse 84; Resp 16; Pulse Ox 100% on R/A; db 07:30 BP 147 / 109; Pulse 82; Resp 16; Pulse Ox 100% on R/A; db 08:00 BP 154 / 91; Pulse 79; Resp 16; Pulse Ox 100% on R/A; db 06:37 Body Mass Index 20.09 (63.50 kg, 177.8 cm) vc1 06:37 Pain Scale: Adult vc1 MDM: 06:28 Medical Screening Exam initiated ms3 08:02 Differential diagnosis: UTI, bowel obstruction, non-specific abd pain. Data reviewed: ms3 vital signs, nurses notes, lab test result(s), radiologic studies, and as a result, I will discharge patient. I considered the following discharge prescriptions or medication management in the emergency department Medications were administered in the Emergency Department. See MAR. Counseling: I had a detailed discussion with the patient and/or guardian regarding the historical points, exam findings, and any diagnostic results supporting the discharge/admit diagnosis, lab results, radiology results, the need for outpatient follow up, to return to the emergency department if symptoms worsen or persist or if there are any questions or concerns that arise at home. Special discussion: I discussed with the patient/guardian in detail that at this point there is no indication for admission to the hospital. It is understood, however, that if the symptoms persist or worsen the patient needs to return immediately for re-evaluation. ED course: Discussed elevated creatinine with patient. Patient's creatinine 1.34 on August 29, 2023. Discussed with the patient to discontinue ibuprofen use. Patient to follow-up with Dr. Mi in 2 to 3 days. Patient understands and agrees with plan. All questions were answered. Return precautions discussed include worsening symptoms, or any other concerns. On reevaluation patient's symptoms improved, patient is alert and orient x 4, no apparent distress, nontoxic-appearing, speaking full sentences.. 01/19 06:25 Order name: CBC with Diff; Complete Time: 07:02 ms3 01/19 06:25 Order name: CMP; Complete Time: 07:33 ms3 01/19 06:25 Order name: Urinalysis w/ reflexes; Complete Time: 07:02 ms3 01/19 06:25 Order name: CT Abd/Pelvis - Without Contrast; Complete Time: 07:33 ms3 01/19 06:25 Order name: IV Saline Lock; Complete Time: 06:42 ms3 01/19 06:25 Order name: Labs collected and sent; Complete Time: 06:42 ms3 Administered Medications: 07:14 Drug: TORadol - Ketorolac IVP 15 mg IVP once Route: IVP; Site: right antecubital; db 08:13 Follow up: Response: No adverse reaction db 07:14 Drug: NS 0.9% IV 1000 ml IV at 1 bolus Per protocol; to be given as a bolus over 60 db minutes Route: IV; Rate: 1 bolus; Site: right antecubital; 08:13 Follow up: Response: No adverse reaction; IV Status: Completed infusion; IV Intake: db 1000ml Disposition Summary: 01/20/24 07:55 Discharge Ordered Notes: Location: Home ms3 Condition: Stable ms3 Diagnosis - Chronic kidney disease, unspecified ms3 - Flank pain ms3 Followup: ms3 - With: Bobby Mi DO - When: 2 - 3 days - Reason: Recheck today's complaints Discharge Instructions: - Discharge Summary Sheet ms3 - Food Basics for Chronic Kidney Disease ms3 - Flank Pain, Adult, [id number] ms3 Forms: - Medication Reconciliation Form ms3 - Antibiotic Education ms3 - Prescription Opioid Use ms3 - Patient Portal Instructions ms3 - Leadership Thank You Letter ms3 - Work release form db Signatures: [facility] Tl Dawkins DO DO ms3 Felicita Landrum, RN RN vc1 Demetria Fraire, RN RN db Corrections: (The following items were deleted from the chart) 06:25 06:25 Abdomen Pelvis Wo Con+CT.RAD.BRZ ordered. EDMS EDMS
--- NOTE | 2024-01-20 07:55 | ER ---
Nurse's Notes [facility] Name: Kris Taylor Age: 33 yrs Sex: Male : 1990 Arrival Date: 01/20/2024 Time: 06:14 Bed 20 Private MD: Diagnosis: Chronic kidney disease, unspecified;Flank pain Presentation: 01/19 06:37 Chief complaint: Patient states: left lower back pain since 10 pm last night. vc1 Coronavirus screen: Client denies travel out of the [place] in the last 14 days. At this time, the client does not indicate any symptoms associated with coronavirus-19. Ebola Screen: Patient negative for fever greater than or equal to 101.5 degrees Fahrenheit, and additional compatible Ebola Virus Disease symptoms Patient denies exposure to infectious person. Patient denies travel to an Ebola-affected area in the 21 days before illness onset. No symptoms or risks identified at this time. Initial Sepsis Screen: Does the patient meet any 2 criteria? No. Patient's initial sepsis screen is negative. Does the patient have a suspected source of infection? No. Patient's initial sepsis screen is negative. Risk Assessment: Do you want to hurt yourself or someone else? Patient reports no desire to harm self or others. Onset of symptoms was January 19, 2024 at 22:00. 06:37 Method Of Arrival: Ambulatory vc1 06:37 Acuity: ELSA 3 vc1 Triage Assessment: 06:41 General: Appears in no apparent distress. uncomfortable, Behavior is calm, cooperative, vc1 appropriate for age. Pain: Complains of pain in left lower quadrant Pain does not radiate. Pain currently is 9 out of 10 on a pain scale. EENT: No deficits noted. No signs and/or symptoms were reported regarding the EENT system. Neuro: Level of Consciousness is awake, alert, obeys commands, Oriented to person, place, time, situation, Appropriate for age. Cardiovascular: Capillary refill < 3 seconds Patient's skin is warm and dry. Respiratory: Airway is patent Respiratory effort is even, unlabored, Respiratory pattern is regular, symmetrical. GI: Abdomen is flat, non-distended, Reports upper abdominal pain. : No deficits noted. No signs and/or symptoms were reported regarding the genitourinary system. Derm: Skin is intact, is healthy with good turgor, Skin is dry, Skin is normal, Skin temperature is warm. Musculoskeletal: Circulation, motion, and sensation intact. Range of motion: intact in all extremities. Historical: - Allergies: 06:38 PENICILLINS; vc1 - PMHx: 06:38 Anxiety; Asthma; Back pain; Chronic pain; Kidney stones; mitral valve prolapse; vc1 - PSHx: 06:38 None; vc1 - Immunization history:: Client reports having NOT received the Covid vaccine. . - Infectious Disease History:: Denies. - Social history:: Smoking status: Patient denies any tobacco usage or history of. Screenin:40 [facility] ED Fall Risk Assessment (Adult) History of falling in the last 3 months, vc1 including since admission No falls in past 3 months (0 pts) Confusion or Disorientation No (0 pts) Intoxicated or Sedated No (0 pts) Impaired Gait No (0 pts) Mobility Assist Device Used No (0 pt) Altered Elimination No (0 pt) Score/Fall Risk Level 0 - 2 = Low Risk Oriented to surroundings, Maintained a safe environment, Educated pt \T\ family on fall prevention, incl call for assistance when getting out of bed. Abuse screen: Denies threats or abuse. Nutritional screening: No deficits noted. Tuberculosis screening: No symptoms or risk factors identified. Assessment: 07:04 Reassessment:. db 07:15 Reassessment: Patient appears in no apparent distress at this time. Patient and/or db family updated on plan of care and expected duration. Pain level reassessed. Patient is alert, oriented x 3, equal unlabored respirations, skin warm/dry/pink. General: Appears in no apparent distress. uncomfortable, Behavior is calm, cooperative, appropriate for age. Pain: Complains of pain in abdomen, LEFT FLANK. Neuro: Level of Consciousness is awake, alert, obeys commands, Oriented to person, place, time, situation. Respiratory: Airway is patent Respiratory effort is even, unlabored, Respiratory pattern is regular, symmetrical. 07:52 Reassessment: Patient appears in no apparent distress at this time. Patient and/or db family updated on plan of care and expected duration. Pain level reassessed. Patient is alert, oriented x 3, equal unlabored respirations, skin warm/dry/pink. 08:15 Reassessment: Patient appears in no apparent distress at this time. Patient and/or db family updated on plan of care and expected duration. Pain level reassessed. Patient is alert, oriented x 3, equal unlabored respirations, skin warm/dry/pink. Patient denies pain at this time. Patient states feeling better. Patient states symptoms have improved. Vital Signs: 06:37 BP 151 / 107; Pulse 105; Resp 17; Temp 97.7; Pulse Ox 100% ; Weight 63.5 kg; Height 5 vc1 ft. 10 in. ; Pain 9/10; 07:00 BP 144 / 95; Pulse 84; Resp 16; Pulse Ox 100% on R/A; db 07:30 BP 147 / 109; Pulse 82; Resp 16; Pulse Ox 100% on R/A; db 08:00 BP 154 / 91; Pulse 79; Resp 16; Pulse Ox 100% on R/A; db 06:37 Body Mass Index 20.09 (63.50 kg, 177.8 cm) vc1 06:37 Pain Scale: Adult vc1 ED Course: 06:15 Patient arrived in ED. ra3 06:22 Tl Cruz DO is Attending Physician. ms3 06:38 Triage completed. vc1 06:40 Arm band placed on right wrist. vc1 06:41 Patient has correct armband on for positive identification. Bed in low position. Call vc1 light in reach. Pulse ox on. NIBP on. 06:42 Inserted saline lock: 20 gauge in right antecubital area, using aseptic technique. rv1 Blood collected. Flushed with 10 mL NS. 06:42 CBC with Diff Sent. rv1 06:42 CMP Sent. rv1 06:49 Urinalysis w/ reflexes Sent. rv1 06:49 CMP Sent. rv1 06:49 CBC with Diff Sent. rv1 07:00 CT Abd/Pelvis - Without Contrast In Process Unspecified. EDMS 07:00 Demetria Fraire, RN is Primary Nurse. db 07:04 Patient moved back from CT. db 07:54 Bobby Mi DO is Referral Physician. ms3 08:14 Provided Education on: DISCHARGE AND FOLLOWUP. db 08:14 No provider procedures requiring assistance completed. IV discontinued, intact, db bleeding controlled, No redness/swelling at site. 08:15 Warm blanket given. Pillow given. db Administered Medications: 07:14 Drug: TORadol - Ketorolac IVP 15 mg IVP once Route: IVP; Site: right antecubital; db 08:13 Follow up: Response: No adverse reaction db 07:14 Drug: NS 0.9% IV 1000 ml IV at 1 bolus Per protocol; to be given as a bolus over 60 db minutes Route: IV; Rate: 1 bolus; Site: right antecubital; 08:13 Follow up: Response: No adverse reaction; IV Status: Completed infusion; IV Intake: db 1000ml Medication: 06:45 VIS not applicable for this client. vc1 Intake: 08:13 IV: 1000ml; Total: 1000ml. db Outcome: 07:55 Discharge ordered by MD. ms3 08:14 Discharged to home ambulatory, db 08:14 Condition: stable 08:14 Discharge instructions given to patient, Instructed on discharge instructions, follow up and referral plans. 08:15 Patient left the ED. db Signatures: Dispatcher [employer] EDMS Tl Cruz DO DO ms3 Felicita Landrum RN RN vc1 Demetria Fraire RN RN db Olya Cardona rv1 Mandi Fuller ra3
[2024-01-20 08:24] VITALS: TEMP 97.7; O2SAT 100
[2024-01-20 08:41] VITALS: BP 154/91
== END 2024-01-20 08:15 | disposition home or self-care (01) ==
LOC: ER 06:14
DX: N18.9 Chronic kidney disease, unspecified (principal)
CPT/HCPCS: 36415; 74176; 80053; 81003; 85025; 96361; 96374; 99285; J7030

== ENCOUNTER 2024-05-08 23:08 | Emergency (ER) | payer BC, SELFPAY ==
[2024-05-08] MEDS ORDERED: KETOROLAC 30 MG/ML INJ ONE (23:16)
--- NOTE | 2024-05-09 00:38 | ER ---
Nurse's Notes [facility] Name: Kris Taylor Age: 34 yrs Sex: Male : 1990 Arrival Date: 05/08/2024 Time: 23:08 Bed DX3 Private MD: Diagnosis: Pain in left upper arm-strain Presentation: 05/08 23:16 Chief complaint: Patient states: working out and feel like I tore or pull something in vc1 my left bicep. Coronavirus screen: Client denies travel out of the [place] in the last 14 days. At this time, the client does not indicate any symptoms associated with coronavirus-19. Ebola Screen: Patient negative for fever greater than or equal to 101.5 degrees Fahrenheit, and additional compatible Ebola Virus Disease symptoms Patient denies exposure to infectious person. Patient denies travel to an Ebola-affected area in the 21 days before illness onset. No symptoms or risks identified at this time. Initial Sepsis Screen: Does the patient meet any 2 criteria? No. Patient's initial sepsis screen is negative. Does the patient have a suspected source of infection? No. Patient's initial sepsis screen is negative. Risk Assessment: Do you want to hurt yourself or someone else? Patient reports no desire to harm self or others. Onset of symptoms was May 08, 2024 at 20:00. 23:16 Method Of Arrival: Ambulatory vc1 23:16 Acuity: ELSA 4 vc1 Triage Assessment: 23:19 General: Appears in no apparent distress. uncomfortable, slender, well groomed, well vc1 developed, well nourished, Behavior is calm, cooperative, appropriate for age. Pain: Complains of pain in left bicep Pain does not radiate. Pain currently is 7 out of 10 on a pain scale. Quality of pain is described as dull. EENT: No deficits noted. No signs and/or symptoms were reported regarding the EENT system. Neuro: Level of Consciousness is awake, alert, obeys commands, Oriented to person, place, time, situation, Appropriate for age. Cardiovascular: Capillary refill < 3 seconds Patient's skin is warm and dry. Respiratory: Airway is patent Respiratory effort is even, unlabored, Respiratory pattern is regular, symmetrical, Breath sounds are clear bilaterally. GI: No deficits noted. No signs and/or symptoms were reported involving the gastrointestinal system. : No deficits noted. No signs and/or symptoms were reported regarding the genitourinary system. Derm: Skin is intact, is healthy with good turgor, Skin is dry, Skin is normal, Skin temperature is warm. Musculoskeletal: Circulation, motion, and sensation intact. Range of motion: intact in all extremities, Reports pain in left bicep. Historical: - Allergies: 23:18 PENICILLINS; vc1 - PMHx: 23:18 Anxiety; Asthma; Back pain; Chronic pain; Kidney stones; mitral valve prolapse; vc1 - PSHx: 23:18 None; vc1 - Immunization history:: Client reports having NOT received the Covid vaccine. - Infectious Disease History:: Denies. - Social history:: Smoking status: unknown. Screenin:18 [facility] ED Fall Risk Assessment (Adult) History of falling in the last 3 months, vc1 including since admission No falls in past 3 months (0 pts) Confusion or Disorientation No (0 pts) Intoxicated or Sedated No (0 pts) Impaired Gait No (0 pts) Mobility Assist Device Used No (0 pt) Altered Elimination No (0 pt) Score/Fall Risk Level 0 - 2 = Low Risk Oriented to surroundings, Maintained a safe environment, Educated pt \T\ family on fall prevention, incl call for assistance when getting out of bed. Abuse screen: Denies threats or abuse. Nutritional screening: No deficits noted. Tuberculosis screening: No symptoms or risk factors identified. Assessment: 05/09 00:55 General: see triage assessment. vc1 Vital Signs: 0402 23:16 Weight 63.5 kg; Height 5 ft. 10 in. ; Pain 7/10; vc1 23:23 BP 142 / 89; Pulse 94; Resp 16; Temp 98; Pulse Ox 100% ; vc1 23:16 Body Mass Index 20.09 (63.50 kg, 177.8 cm) vc1 23:16 Pain Scale: Adult vc1 ED Course: 23:13 Patient arrived in ED. gm2 23:17 Courtney Rivera FNP-C is PHCP. kb 23:17 Kenny Ying MD is Attending Physician. kb 23:17 Triage completed. vc1 23:18 Arm band placed on right wrist. vc1 23:43 Humerus Left XRAY In Process Unspecified. EDMS 05/09 00:54 No provider procedures requiring assistance completed. Patient did not have IV access vc1 during this emergency room visit. 00:55 Patient has correct armband on for positive identification. Provided Education on: pain vc1 medication. Administered Medications: 05/08 23:25 Drug: Ketorolac IM 30 mg IM once Route: IM; Site: right deltoid; vc1 Medication: 23:19 VIS not applicable for this client. vc1 Outcome: 05/09 00:38 Discharge ordered by MD. pfeiffer 00:54 Discharged to home ambulatory, vc1 00:54 Condition: stable 00:54 Discharge instructions given to patient, Instructed on discharge instructions, follow up and referral plans. medication usage, Demonstrated understanding of instructions, follow-up care, medications, Prescriptions given X 2, 00:56 Patient left the ED. vc1 Signatures: Dispatcher [employer] EDVA Courtney Rivera, BRET LOPEZ-Felicita Bustillo RN RN vc1 Ashanti Roberts 2
--- NOTE | 2024-05-09 00:38 | EDPHYS ---
Physician Documentation [facility] Name: Kris Taylor Age: 34 yrs Sex: Male : 1990 Arrival Date: 05/08/2024 Time: 23:08 Bed DX3 Private MD: ED Physician Kenny Ying HPI: 05/09 00:27 This 34 yrs old Male presents to ER via Ambulatory with complaints of Arm Pain. kb 00:27 Pt is a 34 year old male who presents for pain to left bicep that started after working kb out earlier today. Denies any other injury. States he is concerned that he tore a muscle. . Historical: - Allergies: 05/08 23:18 PENICILLINS; vc1 - PMHx: 23:18 Anxiety; Asthma; Back pain; Chronic pain; Kidney stones; mitral valve prolapse; vc1 - PSHx: 23:18 None; vc1 - Immunization history:: Client reports having NOT received the Covid vaccine. - Infectious Disease History:: Denies. - Social history:: Smoking status: unknown. ROS: 23:20 Constitutional: As per HPI kb Exam: 05/09 00:26 Constitutional: This is a well developed, well nourished patient who is awake, alert, kb and in no acute distress. Head/Face: Normocephalic, atraumatic. ENT: Moist Mucous membranes Cardiovascular: Regular rate Respiratory: Respirations even and unlabored. No increased work of breathing. Talking in full sentences Skin: Warm, dry with normal turgor. Normal color. Neuro: Awake and alert, GCS 15, oriented to person, place, time, and situation. Musculoskeletal/extremity: Extremities: grossly normal except: noted in the left bicep: pain, tenderness, ROM: intact in all extremities, Circulation is intact in all extremities. Sensation intact. Vital Signs: 05/08 23:16 Weight 63.5 kg; Height 5 ft. 10 in. ; Pain 7/10; vc1 23:23 BP 142 / 89; Pulse 94; Resp 16; Temp 98; Pulse Ox 100% ; vc1 23:16 Body Mass Index 20.09 (63.50 kg, 177.8 cm) vc1 23:16 Pain Scale: Adult vc1 MDM: 23:17 Medical Screening Exam initiated kb 05/09 00:27 Differential diagnosis: tendonitis, fracture, strain. Data reviewed: vital signs, kb nurses notes. Counseling: I had a detailed discussion with the patient and/or guardian regarding the historical points, exam findings, and any diagnostic results supporting the discharge/admit diagnosis, radiology results, the need for outpatient follow up, a orthopedic surgeon, to return to the emergency department if symptoms worsen or persist or if there are any questions or concerns that arise at home. 05/08 23:20 Order name: Humerus Left XRAY kb Administered Medications: 05/08 23:25 Drug: Ketorolac IM 30 mg IM once Route: IM; Site: right deltoid; vc1 Disposition: 05/09 01:33 Co-signature as Attending Physician, Kenny Ying MD I reviewed the patient's care rt provided by the Advanced Practice Provider and agree with the diagnosis and treatment plan. Disposition Summary: 05/09/24 00:38 Discharge Ordered Notes: Location: Home kb Condition: Stable kb Diagnosis - Pain in left upper arm - strain kb Followup: kb - With: Private Physician - When: 2 - 3 days - Reason: Recheck today's complaints, Continuance of care, Re-evaluation by your physician Followup: kb - With: Emergency Department - When: As needed - Reason: Worsening of condition Discharge Instructions: - Discharge Summary Sheet kb - Musculoskeletal Pain kb - Muscle Strain, [id number] kb Forms: - Medication Reconciliation Form kb - Antibiotic Education kb - Prescription Opioid Use kb - Patient Portal Instructions kb - Leadership Thank You Letter Prescriptions: - Diclofenac Sodium 75 mg Oral tablet, delayed release (enteric coated) - take 1 tablet ORAL route 2 times per day As needed; 30 tablet; Refills: 0, kb Product Selection Permitted - orphenadrine citrate 100 mg Oral Tablet Sustained Release - take 1 tablet ORAL route 2 times per day As needed; 20 tablet; Refills: 0, kb Product Selection Permitted Signatures: Dispatcher [employer] Courtney Lopez FNP-C FNP-Ckb Calcote, Vanessa, RN RN vc1 Kenny Ying MD MD rt
[2024-05-09 01:01] VITALS: BP 142/89; TEMP 98; O2SAT 100
--- NOTE | 2024-05-09 05:21 | RAD REPORT ---
EXAM: XR Left Humerus, 2 or More Views CLINICAL HISTORY: PAIN TECHNIQUE: Frontal and lateral views of the left humerus. COMPARISON: No relevant prior studies available. FINDINGS: Bones/joints: Unremarkable. No acute fracture. No dislocation. Soft tissues: Unremarkable. IMPRESSION: No acute injury. Electronically signed by: Patt Myles MD 05/09/2024 12:01 AM CDT RP Due to temporary technical issues with the [employer] reporting system, reports are being balbir d by the in-house radiologist without review as a courtesy to ensure prompt reporting the interpreting radiologist is fully responsible for the content of the report. Transcribed Date/Time: 05/09/2024 5:20 AM
== END 2024-05-09 00:56 | disposition home or self-care (01) ==
LOC: ER 23:08
DX: M79.622 Pain in left upper arm (principal); S46.212A Strain of muscle, fascia and tendon of other parts of biceps, left arm, initial encounter
CPT/HCPCS: 96372; 99284

== ENCOUNTER 2024-09-12 22:45 | Emergency (ER) | payer BC, SELFPAY ==
--- NOTE | 2024-09-13 00:13 | EDPHYS ---
Physician Documentation [facility] Name: Kris Taylor Age: 34 yrs Sex: Male : 1990 Arrival Date: 09/12/2024 Time: 22:45 Bed 2 Private MD: ED Physician Ye Gonzalez HPI: 09/12 23:20 This 34 yrs old Male presents to ER via Ambulatory with complaints of Chest Pain. cr8 23:20 Patient is a 34-year-old male that comes in the emergency room complaining of chest cr8 pain that was sharp in nature to the left side of his chest. Reports he has a history of anxiety and is scared him. Currently he is wearing a heart monitor because he reports has been having palpitations for the last several days. He does not have any associated diaphoresis. Chest pain was not associated with exertion. Is nonradiating. He denies any dyspnea at this time.. Historical: - Allergies: 22:56 PENICILLINS; jb4 - PMHx: 22:56 Anxiety; Asthma; Back pain; Chronic pain; Kidney stones; mitral valve prolapse; jb4 - PSHx: 22:56 None; jb4 - Immunization history:: Adult Immunizations up to date. - Infectious Disease History:: Denies. - Social history:: Smoking status: Patient denies any tobacco usage or history of. ROS: 23:20 Constitutional: as per HPI cr8 Exam: 23:20 Constitutional: This is a well developed, well nourished patient who is awake, alert, cr8 and in no acute distress. Chest/axilla: Normal chest wall appearance and motion. Nontender with no deformity. No lesions are appreciated. Cardiovascular: Regular rate and rhythm with a normal S1 and S2. No gallops, murmurs, or rubs. Respiratory: Lungs have equal breath sounds bilaterally, clear to auscultation. No rales, rhonchi or wheezes noted. No increased work of breathing. Back: No spinal tenderness. No costovertebral tenderness. Full range of motion. Skin: Warm, dry with normal turgor. Normal color with no rashes, no lesions, and no evidence of cellulitis. MS/ Extremity: Pulses equal, no cyanosis. Neurovascular intact. Full, normal range of motion. Neuro: Awake and alert, GCS 15, oriented to person, place, time, and situation. Cranial nerves II-XII grossly intact. Motor strength 5/5 in all extremities. Sensory grossly intact. 23:20 ECG was reviewed by the Attending Physician. 09/13 00:10 Special observations: Reexamined patient. He is in no acute distress. Vital signs are cr8 stable. Discussed results and he was comfortable with discharge., Vital Signs: 09/12 22:53 BP 175 / 108; Pulse 98; Resp 16; Temp 97.6(TE); Pulse Ox 100% on R/A; Weight 65.77 kg jb4 (R); Height 5 ft. 2 in. (R); 23:39 BP 149 / 97; Pulse 89; Resp 16; Pulse Ox 100% on R/A; km10 22:53 Body Mass Index 26.52 (65.77 kg, 157.48 cm) jb4 John Coma Score: 23:39 Eye Response: spontaneous(4). Motor Response: obeys commands(6). Verbal Response: km10 oriented(5). Total: 15. MDM: 22:54 Medical Screening Exam initiated cr8 23:33 Independent interpretation of the following test(s) in the Emergency Department X-Ray: cr8 My interpretation is Lungs well-inflated, no evidence of pneumothorax, cardiac silhouette unremarkable. 09/13 00:10 Data reviewed: vital signs, nurses notes, lab test result(s), cardiac enzymes, troponin cr8 i, EKG, radiologic studies. ED course: Exam without evidence of volume overload so doubt heart failure. EKG without signs of active ischemia. Given the timing of pain to ER presentation, single troponin was negative so doubt NSTEMI. Presentation not consistent with acute PE (Wells low risk PERC negative),pneumothorax (not visualized on chest xr), thoracic aortic dissection, pericarditis, tamponade, pneumonia (no infectious symptoms, clear chest xr), myocarditis (no recent illness, neg trop). HEART score:1 so plan to discharge patient home with PMD follow up.. ED course: HEART Score from https://www.emrap.org/corependium/calculator/heart-score on 09/13/2024, 12:11 AM All calculations should be rechecked by clinician prior to use RESULT SUMMARY: +1 Low Score Risk of major cardiac event in next six weeks is 0.9 to 1.7%, based on the Shannon et al HEART score 2013 validation study. INPUTS: History -> Slightly suspicious ECG -> Non-specific repolarization disturbance / LBBB / LVH / ventricular pacemaker Age -> < 45 Risk factors -> No known risk factors Troponin -> Normal. 09/12 22:53 Order name: Troponin HS; Complete Time: 00:01 cr8 09/12 22:53 Order name: XRAY Chest (1 view) cr8 09/12 22:53 Order name: EKG; Complete Time: 22:54 cr8 09/12 22:53 Order name: Cardiac monitoring; Complete Time: 23:02 cr8 09/12 22:53 Order name: EKG - Nurse/Tech; Complete Time: 23:02 cr8 09/12 22:53 Order name: Labs collected and sent; Complete Time: 23:02 cr8 EC/07 23:20 Rate is 89 beats/min. Rhythm is regular, Sinus Rhythm. AR interval is normal. QRS cr8 interval is normal. Q waves are Present in leads V1, V2. Clinical impression: Abnormal EKG without significant change and Q wave with T wave inversion in the anterior septal leads. This has been seen on previous EKGs. No acute ischemic changes. Interpreted by me. Administered Medications: No medications were administered Disposition: 09/13 00:46 Co-signature as Attending Physician, Ye Gonzalez MD I agree with the assessment sp4 and plan of care. I reviewed the patient's care provided by the Advanced Practice Provider and agree with the diagnosis and treatment plan. Disposition Summary: 09/13/24 00:13 Discharge Ordered Notes: Location: Home cr8 Condition: Stable cr8 Diagnosis - Chest pain, unspecified cr8 Followup: cr8 - With: Private Physician - When: 2 - 3 days - Reason: Recheck today's complaints, Re-evaluation by your physician Followup: cr8 - With: Emergency Department - When: As needed - Reason: Trouble breathing, Worsening of condition Discharge Instructions: - Discharge Summary Sheet cr8 - Nonspecific Chest Pain, Adult cr8 Forms: - Medication Reconciliation Form cr8 - Patient Portal Instructions cr8 - Leadership Thank You Letter cr8 Signatures: Dispatcher [employer] Manny Aguilar RN RN jb4 Ye Gonzalez MD MD sp4 Joey Juarez NP SANITATION MANAGER cr8 Corrections: (The following items were deleted from the chart) 09/12 22:54 22:54 Troponin High Sensitivity+C.LAB.GALDINO ordered. EDMS EDMS
--- NOTE | 2024-09-13 00:13 | ER ---
Nurse's Notes [facility] Name: Kris Taylor Age: 34 yrs Sex: Male : 1990 Arrival Date: 09/12/2024 Time: 22:45 Bed 2 Private MD: Diagnosis: Chest pain, unspecified Presentation: 09/12 22:53 Chief complaint: Patient states: I have been having chest pain for the past 5 days. jb4 This morning it felt like several muscle spasms and my back started hurting. My Dr. put me on a heart monitor. Coronavirus screen: At this time, the client does not indicate any symptoms associated with coronavirus-19. Ebola Screen: No symptoms or risks identified at this time. Initial Sepsis Screen: Does the patient meet any 2 criteria? HR > 90 bpm. Yes Does the patient have a suspected source of infection? No. Patient's initial sepsis screen is negative. Risk Assessment: Do you want to hurt yourself or someone else? Patient reports no desire to harm self or others. Onset of symptoms was September 07, 2024. Transition of care: patient was not received from another setting of care. 22:53 Method Of Arrival: Ambulatory jb4 22:53 Acuity: ELSA 2 jb4 Historical: - Allergies: 22:56 PENICILLINS; jb4 - PMHx: 22:56 Anxiety; Asthma; Back pain; Chronic pain; Kidney stones; mitral valve prolapse; jb4 - PSHx: 22:56 None; jb4 - Immunization history:: Adult Immunizations up to date. - Infectious Disease History:: Denies. - Social history:: Smoking status: Patient denies any tobacco usage or history of. Screenin:54 [facility] ED Fall Risk Assessment (Adult) History of falling in the last 3 months, km10 including since admission No falls in past 3 months (0 pts) Confusion or Disorientation No (0 pts) Intoxicated or Sedated No (0 pts) Impaired Gait No (0 pts) Mobility Assist Device Used No (0 pt) Altered Elimination No (0 pt) Score/Fall Risk Level 0 - 2 = Low Risk Oriented to surroundings, Maintained a safe environment, Hourly rounding (assess needs \T\ fall precautionary measures) done. Abuse screen: Denies threats or abuse. Denies injuries from another. Nutritional screening: No deficits noted. 23:04 Tuberculosis screening: No symptoms or risk factors identified. km10 Assessment: 23:03 General: Appears in no apparent distress. Behavior is calm, cooperative, anxious. Pain: km10 Complains of pain in thoracic area Quality of pain is described as dull, Pain began 1 hour ago. Is continuous. Neuro: Level of Consciousness is awake, alert, obeys commands, Oriented to person, place, time, situation, Appropriate for age Gait is steady, Speech is normal. 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 Respiratory: Airway is patent Respiratory effort is even, unlabored, Respiratory pattern is regular, symmetrical. 23:40 Reassessment: Patient appears in no apparent distress at this time. No changes from km10 previously documented assessment. Patient and/or family updated on plan of care and expected duration. Pain level reassessed. Patient is alert, oriented x 3, equal unlabored respirations, skin warm/dry/pink. 09/13 00:23 Reassessment: Patient appears in no apparent distress at this time. Patient and/or km10 family updated on plan of care and expected duration. Pain level reassessed. Patient is alert, oriented x 3, equal unlabored respirations, skin warm/dry/pink. Patient states feeling better. Vital Signs: 09/12 22:53 BP 175 / 108; Pulse 98; Resp 16; Temp 97.6(TE); Pulse Ox 100% on R/A; Weight 65.77 kg jb4 (R); Height 5 ft. 2 in. (R); 23:39 BP 149 / 97; Pulse 89; Resp 16; Pulse Ox 100% on R/A; km10 22:53 Body Mass Index 26.52 (65.77 kg, 157.48 cm) jb4 Register Coma Score: 23:39 Eye Response: spontaneous(4). Motor Response: obeys commands(6). Verbal Response: km10 oriented(5). Total: 15. ED Course: 22:49 Patient arrived in ED. rv1 22:49 Joey Juarez NP is PHCP. cr8 22:49 Ye Gonzalez MD is Attending Physician. cr8 22:50 Vania England RN is Primary Nurse. km10 22:53 Patient has correct armband on for positive identification. Provided Education on: plan km10 of care. Client placed on continuous cardiac and pulse oximetry monitoring. NIBP monitoring applied. hand bunch maker on. Door closed. Noise minimized. Lights dimmed. Warm blanket given. Pillow given. 22:55 Triage completed. jb4 22:56 Arm band placed on right wrist. jb4 23:04 No provider procedures requiring assistance completed. Inserted saline lock: 20 gauge km10 in left wrist, using aseptic technique. Blood collected. Flushed with 10 mL NS. Patient maintains SpO2 saturation greater than 95% on room air. 23:32 XRAY Chest (1 view) In Process Unspecified. EDMS 09/13 00:23 IV discontinued, intact, bleeding controlled, No redness/swelling at site. Pressure km10 dressing applied. Administered Medications: No medications were administered Medication: 00:23 VIS not applicable for this client. km10 Outcome: 00:13 Discharge ordered by . angelica 00:23 Discharged to home ambulatory, km10 00:23 Condition: stable 00:23 Discharge instructions given to patient, Instructed on discharge instructions, follow up and referral plans. Demonstrated understanding of instructions, follow-up care, 00:23 Patient left the ED. km10 Signatures: Dispatcher [employer] EDKS Manny Mitchell, RN RN jb4 Olya Cardona rv1 Joey Juarez, YURY BRAND LEADER [email or web address] Vania England, RN RN km10
[2024-09-13 01:06] VITALS: TEMP 97.6; O2SAT 100
[2024-09-13 01:22] VITALS: BP 149/97
--- NOTE | 2024-09-13 06:00 | RAD REPORT ---
EXAM: XR Chest, 1 View CLINICAL HISTORY: The patient is 34 years old and is Male; CHEST PAIN TECHNIQUE: Frontal view of the chest. COMPARISON: No relevant prior studies available. FINDINGS: Lungs: Unremarkable. No consolidation. Pleural space: Unremarkable. No pneumothorax. Heart: Unremarkable. Mediastinum: Unremarkable. Normal mediastinal contour. Bones/joints: No acute findings. IMPRESSION: No acute findings in the chest. Electronically signed by: Raj Dean MD 09/13/2024 12:05 AM CDT 8 Due to temporary technical issues with the PACS/Tuniu reporting system, reports are being balbir d by the in-house radiologist without review as a courtesy to ensure prompt reporting the interpreting radiologist is fully responsible for the content of the report. Transcribed Date/Time: 09/13/2024 6:00 AM
== END 2024-09-13 00:23 | disposition home or self-care (01) ==
LOC: ER 22:45
DX: R07.9 Chest pain, unspecified (principal); F41.9 Anxiety disorder, unspecified
CPT/HCPCS: 36415; 71045; 84484; 93005; 99284

== ENCOUNTER 2024-09-20 01:52 | Emergency (ER) | payer SELFPAY ==
[2024-09-20 02:34] LABS: Absolute Lymphocytes (CBC) 3.1 K/uL (0.7-4.9); Hematocrit 43.7 % (39.6-49.0); Hemoglobin 15.1 g/dL (13.6-17.9); MCH 29.4 pg (27.0-35.0); MCHC 34.7 g/dL (32.0-36.0); MCV 84.8 fL (80-100); MPV 7.9 fL (7.6-11.3); Nucleated RBC Absolute Count 0.0 (0-0); Nucleated Red Blood Cells % 0.0 % (0-0); RBC Red Blood Cell Count 5.15 M/uL (4.33-5.43); White Blood Count 7.10 thou/uL (4.3-10.9)
[2024-09-20 02:55] LABS: Anion Gap 8.4 mEq/L (5.0-15.0); BUN Blood Urea Nitrogen 19.0 mg/dL (7-18); Glucose Level 95.0 mg/dL (74-106); Potassium 3.4 mEq/L (3.5-5.1); Troponin High Sensitivity 3.7 pg/mL (<58.9)
--- NOTE | 2024-09-20 03:55 | EDPHYS ---
Physician Documentation [facility] Name: Kris Taylor Age: 34 yrs Sex: Male : 1990 Arrival Date: 09/20/2024 Time: 01:52 Bed 4 Private MD: ED Physician Jonny Pierre HPI: 09/20 02:24 This 34 yrs old Male presents to ER via Ambulatory with complaints of cp. rn 02:24 Patient reports having chest pain since last night. Has numerous visits for chest pain rn without clear etiology. Has history of anxiety and this feels identical to other episodes. Patient has had cardiology workup including monitor Without clear etiology.. Historical: - Allergies: 02:04 PENICILLINS; vc1 - PMHx: 02:04 Anxiety; Asthma; Back pain; Chronic pain; Kidney stones; mitral valve prolapse; vc1 - PSHx: 02:04 None; vc1 - Immunization history:: Client reports having NOT received the Covid vaccine. - Infectious Disease History:: Denies. - Social history:: Smoking status: Patient denies any tobacco usage or history of. - Family history:: not pertinent. - Hospitalizations: : No recent hospitalization is reported. ROS: 02:24 Constitutional: Negative for fever, chills, and weight loss, Cardiovascular: Negative rn for palpitations, and edema Respiratory: Negative for shortness of breath, cough, wheezing, and pleuritic chest pain, Abdomen/GI: Negative for abdominal pain, nausea, vomiting, diarrhea, and constipation, MS/Extremity: Negative for injury and deformity, Exam: 02:24 Constitutional: This is a well developed, well nourished patient who is awake, alert, rn appears anxious Cardiovascular: Regular rate and rhythm. No pulse deficits. Respiratory: No increased work of breathing, no retractions or nasal flaring. Abdomen/GI: Soft, nontender 04:25 ECG was reviewed by the Attending Physician. rn Vital Signs: 01:59 BP 144 / 95; Pulse 88; Resp 19; Temp 97.5; Pulse Ox 100% ; Weight 65.77 kg; Height 5 vc1 ft. 10 in. ; Pain 5/10; 03:13 BP 129 / 89; Pulse 71; Resp 17; Temp 97.5; Pulse Ox 98% ; Pain 5/10; bm8 04:18 BP 136 / 90; Pulse 68; Resp 17; Temp 97.5; Pulse Ox 100% ; Pain 0/10; bm8 01:59 Body Mass Index 20.81 (65.77 kg, 177.8 cm) vc1 01:59 Pain Scale: Adult vc1 03:13 Pain Scale: Adult bm8 04:18 Pain Scale: Adult bm8 [place] Coma Score: 03:13 Eye Response: spontaneous(4). Motor Response: obeys commands(6). Verbal Response: bm8 oriented(5). Total: 15. 04:18 Eye Response: spontaneous(4). Motor Response: obeys commands(6). Verbal Response: bm8 oriented(5). Total: 15. 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 rn 02:31 ED course: Patient also states that his Holter monitor showed a few extra beats but rn nothing else worse than that. 03:53 Differential diagnosis: acute pericarditis, anxiety, chest wall pain, costochondritis, rn esophagitis, gastritis, gastroesophageal reflux disease (GERD), pleurisy, pneumonia, pneumothorax, pulmonary embolus. Data reviewed: vital signs, nurses notes, lab test result(s), EKG, radiologic studies, plain films, and as a result, I will discharge patient. Care significantly affected by the following chronic conditions:. Counseling: I had a detailed discussion with the patient and/or guardian regarding the historical points, exam findings, and any diagnostic results supporting the discharge/admit diagnosis, lab results, radiology results, the need for outpatient follow up, to return to the emergency department if symptoms worsen or persist or if there are any questions or concerns that arise at home. Response to treatment: the patient's symptoms have markedly improved after treatment. Special discussion: I discussed with the patient/guardian in detail that at this point there is no indication for admission to the hospital. It is understood, however, that if the symptoms persist or worsen the patient needs to return immediately for re-evaluation. 09/20 02:00 Order name: Basic Metabolic Panel; Complete Time: 03:00 rn 09/20 02:00 Order name: CBC with Diff; Complete Time: 02:45 rn 09/20 02:00 Order name: Troponin HS; Complete Time: 03:00 rn 09/20 02:00 Order name: XRAY Chest (1 view) rn 09/20 01:56 Order name: EKG; Complete Time: 01:56 rn 09/20 01:56 Order name: EKG - Nurse/Tech; Complete Time: 02:12 rn 09/20 02:00 Order name: Cardiac monitoring; Complete Time: 02:12 rn 09/20 02:00 Order name: IV Saline Lock; Complete Time: 02: rn 09/20 02:00 Order name: Labs collected and sent; Complete Time: 02: rn 09/20 02:00 Order name: O2 Per Protocol; Complete Time: 02: rn 09/20 02:00 Order name: O2 Sat Monitoring; Complete Time: 02: rn EC:25 Rate is 83 beats/min. Rhythm is regular. QRS [place] is Normal. CT interval is normal. QRS rn interval is normal. QT interval is normal. No Q waves. T waves are Normal. No ST changes noted. Clinical impression: NSR w/ Non-specific ST/T Changes. Interpreted by me. Reviewed by me. 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 EDIN EDIN 02:01 02:01 CBC+H.LAB.BRZ ordered. [facility] EDIN 02:01 02:01 Troponin High Sensitivity+C.LAB.BRZ ordered. [facility] EDIN 02:01 02:01 Chest Single View+RAD.RAD.BRZ ordered. [facility] EDIN 02:31 02:31 ED course: Patient also states that his Holter monitor showed a few extra beats rn but nothing else worse than the. rn
--- NOTE | 2024-09-20 03:55 | ER ---
Nurse's Notes [facility] Name: Kris Taylor Age: 34 yrs Sex: Male : 1990 Arrival Date: 09/20/2024 Time: 01:52 Bed 4 Private MD: Diagnosis: Chest pain, unspecified Presentation: 09/20 01:59 Chief complaint: Patient states: chest pain that started an hour ago. wore a heart vc1 monitor last and follow up Monday. Coronavirus screen: Client denies travel out of the [place] in the last 14 days. At this time, the client does not indicate any symptoms associated with coronavirus-19. Ebola Screen: Patient negative for fever greater than or equal to 101.5 degrees Fahrenheit, and additional compatible Ebola Virus Disease symptoms Patient denies exposure to infectious person. Patient denies travel to an Ebola-affected area in the 21 days before illness onset. No symptoms or risks identified at this time. Initial Sepsis Screen: Does the patient meet any 2 criteria? No. Patient's initial sepsis screen is negative. Does the patient have a suspected source of infection? No. Patient's initial sepsis screen is negative. Risk Assessment: Do you want to hurt yourself or someone else? Patient reports no desire to harm self or others. Onset of symptoms was September 20, 2024 at 01:00. Care prior to arrival: None. Activity prior to arrival: None. 01:59 Method Of Arrival: Ambulatory vc1 01:59 Acuity: ELSA 3 vc1 Triage Assessment: 02:06 General: Appears in no apparent distress. uncomfortable, slender, well groomed, well vc1 developed, Behavior is calm, cooperative, appropriate for age. Pain: Complains of pain in anterior aspect of left upper chest Pain currently is 5 out of 10 on a pain scale. at worst was 8 out of 10 on a pain scale. EENT: No deficits noted. No signs and/or symptoms were reported regarding the EENT system. Neuro: Level of Consciousness is awake, alert, obeys commands, Oriented to person, place, time, situation, Appropriate for age. Cardiovascular: Heart tones S1 S2 present Capillary refill < 3 seconds Patient's skin is warm and dry. Chest pain is described as mild, Pain is 5 out of 10 on a pain scale. quality is pinching. Respiratory: Airway is patent Respiratory effort is even, unlabored, Respiratory pattern is regular, symmetrical, Breath sounds are clear bilaterally. GI: No deficits noted. No signs and/or symptoms were reported involving the gastrointestinal system. : No deficits noted. No signs and/or symptoms were reported regarding the genitourinary system. Derm: Skin is intact, is healthy with good turgor, Skin is dry, Skin is normal, Skin temperature is warm. Musculoskeletal: Circulation, motion, and sensation intact. Range of motion: intact in all extremities. Historical: - Allergies: 02:04 PENICILLINS; vc1 - PMHx: 02:04 Anxiety; Asthma; Back pain; Chronic pain; Kidney stones; mitral valve prolapse; vc1 - PSHx: 02:04 None; vc1 - Immunization history:: Client reports having NOT received the Covid vaccine. - Infectious Disease History:: Denies. - Social history:: Smoking status: Patient denies any tobacco usage or history of. - Family history:: not pertinent. - Hospitalizations: : No recent hospitalization is reported. Screenin:05 [facility] ED Fall Risk Assessment (Adult) History of falling in the last 3 months, vc1 including since admission No falls in past 3 months (0 pts) Confusion or Disorientation No (0 pts) Intoxicated or Sedated No (0 pts) Impaired Gait No (0 pts) Mobility Assist Device Used No (0 pt) Altered Elimination No (0 pt) Score/Fall Risk Level 0 - 2 = Low Risk Oriented to surroundings, Maintained a safe environment, Educated pt \T\ family on fall prevention, incl call for assistance when getting out of bed, Assessed \T\ reinforced patient's understanding of fall precautions, Hourly rounding (assess needs \T\ fall precautionary measures) done. Abuse screen: Denies threats or abuse. Nutritional screening: No deficits noted. Tuberculosis screening: No symptoms or risk factors identified. Assessment: 03:13 Reassessment: Patient appears in no apparent distress at this time. Patient and/or bm8 family updated on plan of care and expected duration. Pain level reassessed. Patient is alert, oriented x 3, equal unlabored respirations, skin warm/dry/pink. Patient states symptoms have not improved. General: Appears in no apparent distress. comfortable, Behavior is calm, cooperative, appropriate for age. Pain: Complains of pain in left breast Pain currently is 5 out of 10 on a pain scale. Quality of pain is described as dull. Neuro: Level of Consciousness is awake, alert, obeys commands, Oriented to person, place, time, situation, Appropriate for age. Cardiovascular: Reports chest pain, Heart tones S1 S2 present Capillary refill < 3 seconds in bilateral fingers Patient's skin is warm and dry. Rhythm is sinus rhythm. Respiratory: Airway is patent Respiratory effort is even, unlabored, Respiratory pattern is regular, symmetrical, Breath sounds are clear bilaterally. GI: No signs and/or symptoms were reported involving the gastrointestinal system. : No signs and/or symptoms were reported regarding the genitourinary system. EENT: No signs and/or symptoms were reported regarding the EENT system. Derm: No signs and/or symptoms reported regarding the dermatologic system. Musculoskeletal: No signs and/or symptoms reported regarding the musculoskeletal system. 04:18 Reassessment: Patient appears in no apparent distress at this time. Patient and/or bm8 family updated on plan of care and expected duration. Pain level reassessed. Patient is alert, oriented x 3, equal unlabored respirations, skin warm/dry/pink. Patient denies pain at this time. Patient states feeling better. Patient states symptoms have improved. Vital Signs: 01:59 BP 144 / 95; Pulse 88; Resp 19; Temp 97.5; Pulse Ox 100% ; Weight 65.77 kg; Height 5 vc1 ft. 10 in. ; Pain 5/10; 03:13 BP 129 / 89; Pulse 71; Resp 17; Temp 97.5; Pulse Ox 98% ; Pain 5/10; bm8 04:18 BP 136 / 90; Pulse 68; Resp 17; Temp 97.5; Pulse Ox 100% ; Pain 0/10; bm8 01:59 Body Mass Index 20.81 (65.77 kg, 177.8 cm) vc1 01:59 Pain Scale: Adult vc1 03:13 Pain Scale: Adult bm8 04:18 Pain Scale: Adult bm8 Malcom Coma Score: 03:13 Eye Response: spontaneous(4). Motor Response: obeys commands(6). Verbal Response: bm8 oriented(5). Total: 15. 04:18 Eye Response: spontaneous(4). Motor Response: obeys commands(6). Verbal Response: bm8 oriented(5). Total: 15. ED Course: 01:54 Patient arrived in ED. rn 01:55 Jonny Pierre MD is Attending Physician. rn 01:59 Felicita Landrum, JAVIER is Primary Nurse. vc1 02:04 Triage completed. vc1 02:04 EKG done, by ED staff, reviewed by Jonny Pierre MD. Inserted saline lock: 18 gauge in vc1 left antecubital area, using aseptic technique. Blood collected. Flushed with 10 mL NS. 02:05 Arm band placed on left wrist. vc1 02:39 XRAY Chest (1 view) In Process Unspecified. EDMS 03:13 No provider procedures requiring assistance completed. Patient maintains SpO2 bm8 saturation greater than 95% on room air. 03:13 Patient has correct armband on for positive identification. Placed in gown. Bed in low bm8 position. Call light in reach. Client placed on continuous cardiac and pulse oximetry monitoring. NIBP monitoring applied. monitor tech on. Pulse ox on. NIBP on. Door closed. Noise minimized. Warm blanket given. Pillow given. Verbal reassurance given. Head of bed elevated. 04:18 IV discontinued, intact, bleeding controlled, No redness/swelling at site. Pressure bm8 dressing applied. 04:18 Provided Education on: post er care. bm8 Administered Medications: No medications were administered Medication: 02:05 VIS not applicable for this client. vc1 Outcome: 03:54 Discharge ordered by . rn 04:18 Discharged to home ambulatory, bm8 04:18 Condition: stable 04:18 Discharge instructions given to patient, family, Instructed on discharge instructions, follow up and referral plans. no drinking with medication, no driving heavy equipment, medication usage, safety practices, Demonstrated understanding of instructions, follow-up care, medications, 04:19 Patient left the ED. bm8 Signatures: Dispatcher [employer] EDPA Jonny Pierre MD MD rn Calcote, Vanessa, RN RN vc1 Rodolfo Pulliam RN RN bm8
--- NOTE | 2024-09-20 06:08 | RAD REPORT ---
EXAM DESCRIPTION: Chest Single View [employer]Lex: XR CHEST 1 VIEW CLINICAL HISTORY: 34 years Male, CHEST PAIN COMPARISON: 09/12/2024 FINDINGS: Single portable AP upright view of the chest. Trachea is midline. Normal size of the cardiac silhouet te. No pulmonary vascular congestion. No focal consolidation, pleural effusion, or pneumothorax. No acute osseous abnormality. IMPRESSION: No acute radiographic abnormality. Electronically signed by: Kira Franco MD 09/20/2024 03:44 AM CDT RP Due to temporary technical issues with the PACS/[employer] reporting system, reports are being balbir d by the in-house radiologist without review as a courtesy to ensure prompt reporting the interpreting radiologist is fully responsible for the content of the report. Transcribed Date/Time: 09/20/2024 6:07 AM
[2024-09-20 08:48] VITALS: TEMP 97.5
[2024-09-20 08:51] VITALS: BP 136/90; O2SAT 100
== END 2024-09-20 04:19 | disposition home or self-care (01) ==
LOC: ER 01:52
DX: R07.9 Chest pain, unspecified (principal); F41.9 Anxiety disorder, unspecified
CPT/HCPCS: 36415; 71045; 80048; 84484; 85025; 93005; 99284

== ENCOUNTER 2024-11-01 15:13 | Emergency (ER) | payer OTHER, SELFPAY ==
--- NOTE | 2024-11-01 15:50 | EDPHYS ---
Physician Documentation [facility] Name: Kris Taylor Age: 34 yrs Sex: Male : 1990 Arrival Date: 11/01/2024 Time: 15:13 Bed DX3 Private MD: ED Physician Geovany Vasquez HPI: 11/01 15:43 This 34 yrs old Male presents to ER via Ambulatory with complaints of Arm Pain, cp Shoulder Pain. 15:43 The patient or guardian complains of pain, that is acute. The complaints affect the cp left bicep. Context: resulted from heavy lifting. Onset: The symptoms/episode began/occurred 1 month(s) ago. Treatment prior to arrival includes: no previous treatment. Modifying factors: the symptoms are aggravated by movement, bending arm. Associated signs and symptoms: Pertinent positives: pain, deformity of biceps muscle, Pertinent negatives: decreased range of motion, numbness. Severity of symptoms: in the emergency department the symptoms are unchanged, despite home interventions. Historical: - Allergies: 15:20 PENICILLINS; db - PMHx: 15:20 Asthma; Back pain; Chronic pain; Anxiety; Kidney stones; mitral valve prolapse; db - PSHx: 15:20 Vasectomy; db - Immunization history:: Adult Immunizations unknown. - Infectious Disease History:: Denies. - Social history:: Smoking status: Patient denies any tobacco usage or history of. ROS: 15:45 Eyes: Negative for injury, pain, redness, and discharge, cp 15:45 Constitutional: Negative for body aches, chills, fever, 15:45 Respiratory: Negative for cough, shortness of breath, wheezing, 15:45 Abdomen/GI: Negative for abdominal pain, nausea, vomiting, and diarrhea, 15:45 MS/extremity: Positive for deformity, pain, tenderness, of the left bicep, 15:45 All other systems are negative, cp Exam: 15:46 Head/Face: Normocephalic, atraumatic. cp 15:46 Constitutional: The patient appears in no acute distress, alert, awake, non-toxic, well developed, well nourished, 15:46 Eyes: Periorbital structures: appear normal, Conjunctiva: normal, no exudate, no injection, Sclera: no appreciated abnormality, Lids and lashes: appear normal, bilaterally, 15:46 ENT: External ear(s): are unremarkable, Nose: is normal, Mouth: Lips: moist, Oral mucosa: moist, Posterior pharynx: Airway: no evidence of obstruction, patent, 15:46 Neck: ROM/movement: is normal, is supple, without pain, no range of motions limitations, 15:46 Chest/axilla: Inspection: normal, 15:46 Cardiovascular: Rate: normal, Pulses: Pulses are 2+ in left radial artery. 15:46 Respiratory: the patient does not display signs of respiratory distress, Respirations: normal, no use of accessory muscles, no retractions, labored breathing, is not present, Breath sounds: are clear throughout, no decreased breath sounds, 15:46 Musculoskeletal/extremity: Extremities: noted in the left bicep: pain, tenderness, There is no evidence of gross deformity, Vital Signs: 15:18 BP 162 / 79; Pulse 89; Resp 16; Temp 97.6; Pulse Ox 100% on R/A; Weight 65.77 kg; db Height 5 ft. 10 in. ; 16:54 BP 145 / 68; Pulse 88; Resp 16; Pulse Ox 97% ; db 15:18 Body Mass Index 20.81 (65.77 kg, 177.8 cm) db MDM: 15:35 Medical Screening Exam initiated cp 15:40 Differential diagnosis: tendonitis, muscle rupture, muscle strain, fracture, DVT. cp 15:50 Data reviewed: vital signs, nurses notes, and as a result, I will discharge patient. cp 15:50 Counseling: I had a detailed discussion with the patient and/or guardian regarding the cp historical points, exam findings, and any diagnostic results supporting the discharge/admit diagnosis. 15:50 Response to treatment: the patient's symptoms have mildly improved after treatment, and cp as a result, I will discharge patient. 11/01 15:43 Order name: Sling; Complete Time: 16:53 cp Administered Medications: 16:45 Drug: Ketorolac IM 30 mg IM once Route: IM; Site: right deltoid; db 16:55 Follow up: Response: No adverse reaction db Disposition Summary: 11/01/24 15:50 Discharge Ordered Notes: Location: Home cp Problem: new cp Symptoms: have improved cp Condition: Stable cp Diagnosis - Other injury of muscle, fascia and tendon of other parts of biceps, left arm, cp initial encounter Followup: cp - With: Tim Guo MD - When: 5 - 6 days - Reason: Recheck today's complaints Discharge Instructions: - Discharge Summary Sheet cp - Muscle Strain cp Forms: - Medication Reconciliation Form cp - Antibiotic Education cp - Prescription Opioid Use cp - Patient Portal Instructions cp - Leadership Thank You Letter cp Prescriptions: - Ibuprofen 800 mg Oral Tablet - take 1 tablet ORAL route every 8 hours As needed take with food; 30 tablet; cp Refills: 0, Product Selection Permitted Signatures: Geovany Honeycutt PA-C PA-C cp Benton, Danielle, RN RN db
--- NOTE | 2024-11-01 15:50 | ER ---
Nurse's Notes [facility] Name: Kris Taylor Age: 34 yrs Sex: Male : 1990 Arrival Date: 11/01/2024 Time: 15:13 Bed DX3 Private MD: Diagnosis: Other injury of muscle, fascia and tendon of other parts of biceps, left arm, initial encounter Presentation: 11/01 15:18 Chief complaint: Patient states: LEFT ARM PAIN X 1 MONTH STATES FEELS LIKE "TORE BICEP db MUSCLE". Coronavirus screen: Client denies travel out of the [place] in the last 14 days. At this time, the client does not indicate any symptoms associated with coronavirus-19. Ebola Screen: Patient negative for fever greater than or equal to 101.5 degrees Fahrenheit, and additional compatible Ebola Virus Disease symptoms Patient denies exposure to infectious person. Patient denies travel to an Ebola-affected area in the 21 days before illness onset. No symptoms or risks identified at this time. Initial Sepsis Screen: Does the patient meet any 2 criteria? No. Patient's initial sepsis screen is negative. Does the patient have a suspected source of infection? No. Patient's initial sepsis screen is negative. Risk Assessment: Do you want to hurt yourself or someone else? Patient reports no desire to harm self or others. Onset of symptoms was November 01, 2024. 15:18 Method Of Arrival: Ambulatory db 15:18 Acuity: ELSA 4 db Triage Assessment: 15:20 General: Appears in no apparent distress. comfortable, Behavior is calm, cooperative. db Pain: Complains of pain in left arm. Neuro: Level of Consciousness is awake, alert, obeys commands, Oriented to person, place, time, situation. Respiratory: Airway is patent Respiratory effort is even, unlabored, Respiratory pattern is regular, symmetrical. Historical: - Allergies: 15:20 PENICILLINS; db - PMHx: 15:20 Asthma; Back pain; Chronic pain; Anxiety; Kidney stones; mitral valve prolapse; db - PSHx: 15:20 Vasectomy; db - Immunization history:: Adult Immunizations unknown. - Infectious Disease History:: Denies. - Social history:: Smoking status: Patient denies any tobacco usage or history of. Screenin:54 [facility] ED Fall Risk Assessment (Adult) History of falling in the last 3 months, db including since admission No falls in past 3 months (0 pts) Confusion or Disorientation No (0 pts) Intoxicated or Sedated No (0 pts) Impaired Gait No (0 pts) Mobility Assist Device Used No (0 pt) Altered Elimination No (0 pt) Score/Fall Risk Level 0 - 2 = Low Risk Oriented to surroundings, Maintained a safe environment. Abuse screen: Denies threats or abuse. Denies injuries from another. Nutritional screening: No deficits noted. Tuberculosis screening: No symptoms or risk factors identified. Assessment: 16:54 Reassessment: Patient appears in no apparent distress at this time. Patient and/or db family updated on plan of care and expected duration. Pain level reassessed. Patient is alert, oriented x 3, equal unlabored respirations, skin warm/dry/pink. General: Appears in no apparent distress. comfortable, Behavior is calm, cooperative. Neuro: Level of Consciousness is awake, alert, obeys commands, Oriented to person, place, time, situation. Vital Signs: 15:18 BP 162 / 79; Pulse 89; Resp 16; Temp 97.6; Pulse Ox 100% on R/A; Weight 65.77 kg; db Height 5 ft. 10 in. ; 16:54 BP 145 / 68; Pulse 88; Resp 16; Pulse Ox 97% ; db 15:18 Body Mass Index 20.81 (65.77 kg, 177.8 cm) db ED Course: 15:15 Patient arrived in ED. mr 15:20 Triage completed. db 15:20 Arm band placed on right wrist. db 15:34 Geovany Honeycutt PA-C [facility]. cp 15:34 Geovany Vasquez MD is Attending Physician. cp 15:50 Tim Guo MD is Referral Physician. cp 16:45 Sling applied to right arm. db 16:54 Patient has correct armband on for positive identification. Provided Education on: db DISCHARGE AND FOLLOWUP. 16:54 No provider procedures requiring assistance completed. Patient did not have IV access db during this emergency room visit. Administered Medications: 16:45 Drug: Ketorolac IM 30 mg IM once Route: IM; Site: right deltoid; db 16:55 Follow up: Response: No adverse reaction db Medication: 16:54 VIS not applicable for this client. db Outcome: 15:50 Discharge ordered by . cp 16:54 Discharged to home ambulatory, db 16:54 Condition: stable 16:54 Discharge instructions given to patient, Instructed on discharge instructions, follow up and referral plans. Prescriptions given X 1, 16:55 Patient left the ED. db Signatures: Megha Aranda, Reg Reg Geovany Grande, PA-C PA-C Demetria Low, RN RN db
[2024-11-01] MEDS ORDERED: KETOROLAC 30 MG/ML INJ ONE (16:46)
== END 2024-11-01 16:55 | disposition home or self-care (01) ==
LOC: ER 15:13
DX: S46.299A Other injury of muscle, fascia and tendon of other parts of biceps, unspecified arm, initial encounter (principal)
CPT/HCPCS: 96372; 99284